=== PATIENT | male | born 1970 | race Caucasian/White ===

== ENCOUNTER → 2020-08-14 08:59 | Outpatient (BNVA) | payer MEDICARE, MEDICAID, SELFPAY | PROVIDERS: Family Provider Counselor Professional; PCP Nurse Practitioner Family; Referring Provider Internal Medicine Pulmonary Disease; Visit Provider Internal Medicine Pulmonary Disease | DX: Z11.59 Encounter for screening for other viral diseases (principal); R06.02 Shortness of breath | CPT/HCPCS: 87635 ==

== ENCOUNTER 2020-08-18 11:55 | Outpatient (CLI) | payer MEDICARE, MEDICAID, SELFPAY ==
--- NOTE | 2020-08-18 12:45 | PFTS_ITS ---
Date of Study:08/18/20 Date of Dictation: 08/19/2020 MECHANICS: Forced vital capacity (FVC) is normal. Forced expiratory volume in one second (FEV1) is . Normal FEV1/FVC is normal. Significant response to bronchodilator FLOW VOLUME LOOP: Normal . LUNG VOLUMES: Total lung capacity (TLC) is reduced. Residual volume (RV) is normal. DIFFUSING CAPACITY FOR CARBON MONOXIDE: Mildly reduced . INTERPRETATION: Reduced prebronchodilator FVC and the FEV1 normalized after bronchodilator. Reduced TLC with mild gas transfer defect. Overall pulmonary function tests seem to be consistent with mixed pattern of restrictive lung disease and some obstruction of airways as evidenced by significant response to bronchodilators. Please correlate clinically MTDD
== END 2020-08-18 11:56 | disposition home or self-care (01) ==
LOC: RT 11:57
PROVIDERS: PCP Nurse Practitioner Family; Visit Provider Internal Medicine Pulmonary Disease
DX: J45.909 Unspecified asthma, uncomplicated (principal)
CPT/HCPCS: 94060; 94726; 94729; J7611

== ENCOUNTER → 2020-11-03 15:43 | Outpatient (BNVA) | payer MEDICARE, MEDICAID, SELFPAY | PROVIDERS: PCP Nurse Practitioner Family; Visit Provider Internal Medicine Pulmonary Disease | DX: R06.02 Shortness of breath (principal); J45.20 Mild intermittent asthma, uncomplicated; E66.01 Morbid (severe) obesity due to excess calories; Z68.43 Body mass index [BMI] 50.0-59.9, adult; I50.9 Heart failure, unspecified | CPT/HCPCS: 82785; 85025; 86003 ==

== ENCOUNTER → 2021-11-10 10:31 | Outpatient (BNVA) | payer MEDICARE, MEDICAID, SELFPAY | PROVIDERS: PCP Nurse Practitioner Family; Visit Provider Psychiatry & Neurology Psychiatry | DX: Z79.899 Other long term (current) drug therapy (principal); Z03.89 Encounter for observation for other suspected diseases and conditions ruled out; F32.9 Major depressive disorder, single episode, unspecified | CPT/HCPCS: 80053; 80061; 83036; 84443 ==

== ENCOUNTER → 2021-12-20 12:55 | Outpatient (BNVA) | payer MEDICARE, MEDICAID, SELFPAY | PROVIDERS: PCP Nurse Practitioner Family; Visit Provider Internal Medicine Pulmonary Disease | DX: J45.909 Unspecified asthma, uncomplicated (principal); I10 Essential (primary) hypertension; E66.01 Morbid (severe) obesity due to excess calories; I50.9 Heart failure, unspecified; R06.02 Shortness of breath; Z68.43 Body mass index [BMI] 50.0-59.9, adult | CPT/HCPCS: 99214 ==

== ENCOUNTER 2022-03-09 10:42 | Emergency (ER) | payer MEDICARE, MEDICAID, SELFPAY ==
[2022-03-02 14:14] VITALS: BP 126/71; BMI 52.2
[2022-03-09 11:02] VITALS: BP 136/80; PULSE 79; RESP 18; TEMP 36.6; O2SAT 96; BMI 49.8
[2022-03-09 11:50] VITALS: BP 114/72; PULSE 66; RESP 18; O2SAT 96
--- NOTE | 2022-03-09 12:21 | W.ED.GENADLT ---
HPI - General Adult General: Chief complaint: General Medical Stated complaint: bp issues Time Seen by Provider: 03/09/22 11:52 Source: patient Mode of arrival: EMS Limitations: no limitations History of Present Illness: Patient is a 51-year-old male who presents to the ED today with complaints of abnormal blood pressure readings. Patient states he does have a history of hypertension that he treats with lisinopril. He states he woke up this morning and his blood pressure was 90s/70s. He states shortly after this he took it again and it was 110/40s. Patient does not have any chest pain, shortness of breath, difficulty breathing. He does not feel lightheaded or dizzy. No syncopal episodes. Patient states he does have a headache. He has a history of headaches. No recent injury or trauma. Onset (ago): hour(s) Associated symptoms: Reports headache(s); Deny chest pain, dyspnea, malaise, nausea, rash or vomiting Treatments prior to arrival: none Review of Systems Const: Denies: fever(s), chills, body aches, fatigue or malaise Eyes: Denies: change in vision or blurry vision Card: Denies: chest pain Resp: Denies: dyspnea GI: Denies: abdominal pain, nausea or vomiting Musc: Denies: neck pain, back pain, extremity pain or joint pain Skin/Breast: Denies: rash Neuro: Reports: headache(s); Denies: numbness in extremities, weakness in extremities, sensory changes or dizziness FORMERLY [facility], [facility]–1983 ED PFSH: Medical History (Updated 03/09/22 @ 13:46 by LOCO Felipe) CHF (congestive heart failure) Essential hypertension GERD (gastroesophageal reflux disease) Intellectual delay MDD (major depressive disorder) FABIEN (obstructive sleep apnea) Psychiatric care Family History Other Cancer Hypertension Social History (Updated 02/16/22 @ 14:41 by Arlet Ivory RN) Smoking and tobacco status: former smoker Quit status (tobacco): has quit using tobacco Year quit tobacco: 2021 Former quit date comment: about a month ago Second hand smoke exposure: Yes Smoking risk assessment/counseling performed?: No Alcohol intake: current Alcohol intake frequency: holidays/special occasions only Desire information about alcohol rehabilitation?: No Counseling given: No Desire information about substance/drug rehabilitation?: No Counseling given: No Adopted: No Caregiver/support person: Yes (every Monday to set up meds and 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) Lives independently: Yes Household members: none Housing: Apartment Marital status: Single Number of children: 0 Number of grandchildren: 0 Highest education level completed: Some College, No Degree service: No Current occupational status: disabled Pets and animals: Yes (rod mora) Pets & animals: cat(s) History of recent travel: No Leisure activites: music, games and other Leisure activities details: loves to cook Sexually active: No Current gender identity: Male Alexandrea/Protestant: Roman Catholic Special alexandrea needs: No Agree to transfusion: Yes Financial difficulty paying for basics: Not Very Hard Physical Exam Const: COMMON NORMALS: no acute distress, patient oriented x3, no limitations (patient does have baseline cognitive delay) and alert GENERAL APPEARANCE: cooperative NUTRITIONAL APPEARANCE: obese ORIENTATION/CONSCIOUSNESS: Yes awake, Yes oriented to person, Yes oriented to place and Yes oriented to time HENMT: COMMON NORMALS: normocephalic and atraumatic HEAD & SCALP: normal to inspection, normocephalic and atraumatic Neck/C-Spine: COMMON NORMALS: full ROM, no lymphadenopathy, supple and no meningeal signs Resp: COMMON NORMALS: normal respiratory effort and clear to auscultation bilaterally AUSCULTATION: clear to auscultation bilaterally Cardio: COMMON NORMALS: regular rate and regular rhythm RATE: regular rate RHYTHM: regular rhythm GI: COMMON NORMALS: Normal to inspection, nondistended, normoactive bowel sounds present, Soft to palpation, non-tender, No hepatosplenomegaly present and no masses PALPATION: Yes Soft to palpation and Yes No hepatosplenomegaly present Back/Pelvis: COMMON NORMALS: thoracic and lumbar spine normal to inspection, no thoracic nor lumbar tenderness and thoraco-lumbar ROM normal Extremity: COMMON NORMALS: normal to inspection, capillary refill normal, no joint enlargement, no clubbing, cyanosis or edema, no calf tenderness and no pedal edema GENERAL: Yes normal exam except as noted Neuro: DOYLE COMA SCALE: document GCS findings [place] coma scale eye opening: Spontaneous [place] coma scale verbal response: Orientated Doyle coma scale motor response: Obey commands [place] coma scale total score: 15 COMMON NORMALS: patient oriented x3, CN's II-XII intact bilaterally, moves all extremities, no focal motor deficits, no sensory deficits noted and gait normal SENSORIUM/ORIENTATION: Yes alert, Yes oriented to person, Yes oriented to place and Yes oriented to time MENINGEAL SIGNS: Yes no meningeal signs MOTOR EXAM: 5/5 motor strength present throughout Skin: COMMON NORMALS: no rashes or lesions noted GENERAL SKIN EXAM: no rashes or lesions noted Course Vital Signs: Vital signs: Vital Signs Temperature 97.9 F 03/09/22 11:02 Pulse Rate 70 03/09/22 14:05 Respiratory Rate 18 03/09/22 14:05 Blood Pressure 122/72 03/09/22 14:05 Pulse Oximetry 97 03/09/22 14:05 [facility] - General Adult Medical Decision Making Blood pressure has been 120s/130s?70s/80s while here. Blood work is unremarkable. He has no complaints of chest pain, shortness of breath, difficulty breathing. He was given sumatriptan for his headache and currently rating it at a 1/10. At this point recommend he continue to keep blood pressure log and follow-up with his primary care provider. Lab Data : 03/09/22 12:30 03/09/22 12:30 Laboratory Results WBC 6.0 10^3/uL (4.0-10.0) 03/09/22 12:30 RBC 4.36 10^6/uL (4.1-5.3) 03/09/22 12:30 Hgb 13.3 g/dL (11.7-16.6) 03/09/22 12:30 Hct 39.8 % (42.0-52.0) L 03/09/22 12:30 MCV 91.3 fl (80-94) 03/09/22 12:30 MCH 30.5 pg (28.0-34.0) 03/09/22 12:30 MCHC 33.4 g/dL (30.0-36.0) 03/09/22 12:30 RDW 14.6 % (12.1-15.1) 03/09/22 12:30 Plt Count 197 10^3/cmm (130-400) 03/09/22 12:30 MPV 10.3 fL (7.4-10.4) 03/09/22 12:30 Neut % (Auto) 68.0 % 03/09/22 12:30 Lymph % (Auto) 21.8 % 03/09/22 12:30 Leslie % (Auto) 8.4 % 03/09/22 12:30 Eos % (Auto) 1.0 % 03/09/22 12:30 Baso % (Auto) 0.5 % 03/09/22 12:30 Neut # (Auto) 4.06 10^3/uL (1.8-7.7) 03/09/22 12:30 Lymph # (Auto) 1.3 10^3/uL (0.8-4.8) 03/09/22 12:30 Leslie # (Auto) 0.5 10^3/uL (0.2-0.9) 03/09/22 12: Eos # (Auto) 0.1 10^3/uL (0.0-0.8) 03/09/22 12: Baso # (Auto) 0.0 10^3/uL (0.0-0.1) 03/09/22 12: Nucleated RBC % (auto) 0 % 03/09/22 12: Nucleated RBCs # 0.0 /100WBC 03/09/22 12:30 Sodium 138 mmol/L (136-145) 03/09/22 12:30 Potassium 3.7 mmol/L (3.5-5.1) 03/09/22 12:30 Chloride 103 mmol/L (98-107) 03/09/22 12:30 Carbon Dioxide 27 mmol/L (22-29) 03/09/22 12:30 Anion Gap 11.7 (5-19) 03/09/22 12:30 BUN 15 mg/dL (6-20) 03/09/22 12:30 Creatinine 1.0 mg/dL (0.7-1.2) 03/09/22 12:30 GFR Calculation 78.8 mL/min (90-130) L 03/09/22 12:30 Glucose 96 mg/dL (65-115) 03/09/22 12:30 Calculated Osmolality 287 mOsm/kg (285-295) 03/09/22 12:30 Calcium 9.0 mg/dL (8.5-10.5) 03/09/22 12:30 Total Bilirubin 0.4 mg/dL (0.15-1.2) 03/09/22 12:30 AST 20 U/L (0-40) 03/09/22 12:30 ALT 22 U/L (0-41) 03/09/22 12:30 Alkaline Phosphatase 180 IU/L (40-130) H 03/09/22 12:30 Total Protein 6.9 g/dL (6.6-8.7) 03/09/22 12:30 Albumin 3.9 g/dL (3.5-5.2) 03/09/22 12:30 Globulin 3.0 g/dL (1.3-4.6) 03/09/22 12:30 Urine Color Yellow (Yellow) 03/09/22 12:50 Urine Appearance Clear (CLEAR) 03/09/22 12:50 Urine pH 5 (5-7) 03/09/22 12:50 Ur Specific [place] 1.015 (1.005-1.030) 03/09/22 12:50 Urine Protein Neg (Negative) 03/09/22 12:50 Urine Glucose (UA) Norm (Normal) 03/09/22 12:50 Urine Ketones Negative (Negative) 03/09/22 12:50 Urine Blood Neg (Negative) 03/09/22 12:50 Urine Nitrate Negative (Negative) 03/09/22 12:50 Urine Bilirubin Neg (Negative) 03/09/22 12:50 Urine Urobilinogen Norm mg/dL (Negative) 03/09/22 12:50 Ur Leukocyte Esterase Negative (Negative) 03/09/22 12:50 Discharge Plan Discharge Patient Disposition: Home Clinical Impression: Headache, Blood pressure check Condition: Stable Prescriptions: No Action tamsulosin 0.4 mg capsule 0.4 mg PO DAILY 0RF sucralfate [Carafate] 1 gram tablet 1 gm PO TID 0RF lisinopril 10 mg tablet 10 mg PO DAILY 0RF zonisamide [Zonegran] 100 mg capsule 300 mg PO .hs 0RF esomeprazole magnesium 40 mg capsule,delayed release(DR/EC) 40 mg PO DAILY 0RF loratadine [Allergy Relief (loratadine)] 10 mg tablet 10 mg PO DAILY 0RF atorvastatin 40 mg tablet 40 mg PO DAILY 0RF aripiprazole 30 mg tablet 30 mg PO .qhs 30 Days Qty: 30 3RF fluoxetine 40 mg capsule 80 mg PO DAILY 30 Days Qty: 60 3RF montelukast [Singulair] 10 mg tablet 10 mg PO DAILY Qty: 30 3RF albuterol sulfate [ProAir HFA] 90 mcg/actuation HFA aerosol inhaler 2 puff inhalation Q6H PRN0RF budesonide-formoterol [Symbicort] 80-4.5 mcg/actuation HFA aerosol inhaler 2 puff inhalation BID Qty: 10.2 3RF isosorbide mononitrate 30 mg tablet extended release 24 hr 15 mg PO BID Qty: 90 3RF potassium chloride 20 mEq tablet extended release 20 meq PO DAILY Qty: 90 3RF furosemide 40 mg tablet 40 mg PO DAILY Qty: 90 3RF Discharge Orders: Discharge ED (Routine); Ordered 03/09/22 Ordered By: Aracely Thorpe Referrals: Thea Escobedo FNP [Primary Care Provider] - Coding Level of Care Code ED Schedule Maker for Chg Fwd Exam Comprehensive
[2022-03-09] MEDS: SUMAtriptan 6 mg/0.5 mL SDV SUBCUT (12:43)
[2022-03-09 12:54] LABS: Basophils % 0.5 %; Eosinophils # 0.1 10^3/uL (0.0-0.8); Hematocrit 39.8 % (42.0-52.0); Hemoglobin 13.3 g/dL (11.7-16.6); Lymphocytes # 1.3 10^3/uL (0.8-4.8); Lymphocytes % 21.8 %; Mean Corpuscular HGB Conc 33.4 g/dL (30.0-36.0); Mean Corpuscular Hemoglobin 30.5 pg (28.0-34.0); Mean Corpuscular Volume 91.3 fl (80-94); Mean Platelet Volume 10.3 fL (7.4-10.4); Monocytes # 0.5 10^3/uL (0.2-0.9); Monocytes % 8.4 %; Neutrophils # 4.06 10^3/uL (1.8-7.7); Nucleated Red Blood Cells % 0 %; Platelet Count 197 10^3/cmm (130-400); Red Blood Count 4.36 10^6/uL (4.1-5.3); Red Cell Distribution Width 14.6 % (12.1-15.1)
[2022-03-09 12:57] VITALS: BP 120/81; PULSE 67; RESP 17; O2SAT 97
[2022-03-09 13:09] LABS: Alanine Aminotransferase 22 U/L (0-41); Albumin Level 3.9 g/dL (3.5-5.2); Alkaline Phosphatase 180 IU/L (40-130); Anion Gap 11.7 (5-19); Aspartate Amino Transferase 20 U/L (0-40); Blood Urea Nitrogen 15 mg/dL (6-20); Carbon Dioxide 27 mmol/L (22-29); Chloride 103 mmol/L (98-107); Glomerular Filtration Rate 78.8 mL/min (90-130); Glucose 96 mg/dL (65-115); Osmolality Calculated 287 mOsm/kg (285-295); Potassium 3.7 mmol/L (3.5-5.1); Sodium 138 mmol/L (136-145); Total Bilirubin 0.4 mg/dL (0.15-1.2); Total Protein 6.9 g/dL (6.6-8.7)
[2022-03-09 13:10] LABS: Add Urine Microscopic? NO; Charge for UA Resulting for Rev
[2022-03-09 13:12] LABS: Bilirubin Urine Neg (Negative); Blood Urine Neg (Negative); Glucose Urine UA Norm (Normal); Ketones Urine Negative (Negative); Leukocyte Esterase Urine Negative (Negative); Nitrate Urine Negative (Negative); Protein Urine Neg (Negative); Specific Gravity, Urine 1.015 (1.005-1.030); Urine Appearance Clear (CLEAR); Urine Color Yellow (Yellow); Urobilinogen Urine Norm (Negative); pH Urine 5 (5-7)
[2022-03-09 14:05] VITALS: BP 122/72; PULSE 70; RESP 18; O2SAT 97
== END 2022-03-09 14:06 | disposition home or self-care (01) ==
PROVIDERS: Emergency Provider Physician Assistant; PCP Nurse Practitioner Family
DX: I11.0 Hypertensive heart disease with heart failure (principal); I50.9 Heart failure, unspecified; R51.9 Headache, unspecified; Z87.891 Personal history of nicotine dependence
CPT/HCPCS: 80053; 81003; 85025; 96372; 99283; J3030

== ENCOUNTER → 2022-05-17 12:12 | Outpatient (BNVA) | payer MEDICARE, MEDICAID, SELFPAY ==
[2022-03-02 14:14] VITALS: BP 126/71; BMI 52.2
== END ==
PROVIDERS: PCP Physician Assistant; Visit Provider Specialist
DX: G47.419 Narcolepsy without cataplexy (principal); Z87.891 Personal history of nicotine dependence
CPT/HCPCS: 99204

== ENCOUNTER → 2022-06-23 10:43 | Outpatient (BNVA) | payer MEDICARE, MEDICAID, SELFPAY ==
[2022-03-02 14:14] VITALS: BP 126/71; BMI 52.2
== END ==
PROVIDERS: PCP Physician Assistant; Visit Provider Internal Medicine Pulmonary Disease
DX: I11.0 Hypertensive heart disease with heart failure (principal); I50.9 Heart failure, unspecified; E66.01 Morbid (severe) obesity due to excess calories; Z68.43 Body mass index [BMI] 50.0-59.9, adult; Z87.891 Personal history of nicotine dependence; K21.9 Gastro-esophageal reflux disease without esophagitis
CPT/HCPCS: 99214

== ENCOUNTER → 2023-01-11 12:04 | Outpatient (BNVA) | payer MEDICARE, MEDICAID, SELFPAY ==
[2022-03-02 14:14] VITALS: BP 126/71; BMI 52.2
== END ==
PROVIDERS: PCP Physician Assistant; Visit Provider Registered Nurse
DX: F32.9 Major depressive disorder, single episode, unspecified (principal); Z79.899 Other long term (current) drug therapy
CPT/HCPCS: 80053; 80061; 83036; 85025

== ENCOUNTER 2023-02-27 11:11 | Outpatient (CLI) | payer MEDICARE, MEDICAID, SELFPAY ==
[2022-03-02 14:14] VITALS: BP 126/71; BMI 52.2
--- NOTE | 2023-02-27 11:25 | XRR_ITS ---
PROCEDURE INFORMATION: Exam: XR Left Knee Exam date and time: 02/27/2023 11:40 AM Age: 52 years old Clinical indication: Pain; Knee; Left; Additional info: Left knee pain TECHNIQUE: Imaging protocol: Radiologic exam of the left knee. Views: 3 views. COMPARISON: No relevant prior studies available. FINDINGS: Bones/joints: Severe tricompartmental osteoarthritis of the knee, greatest in the medial compartment. Distal femoral metaphyseal 3.4 cm sclerotic bony lesion suggestive of a benign enchondroma. Soft tissues: Normal. XR/XR knee LT 3V* [id number] IMPRESSION: 1. Severe tricompartmental osteoarthritis of the knee, greatest in the medial compartment. 2. Distal femoral metaphyseal 3.4 cm sclerotic bony lesion suggestive of a benign enchondroma.
== END 2023-02-27 11:12 | disposition home or self-care (01) ==
PROVIDERS: PCP Physician Assistant; Visit Provider Family Medicine
DX: I11.0 Hypertensive heart disease with heart failure (principal); I50.9 Heart failure, unspecified; Z87.891 Personal history of nicotine dependence
CPT/HCPCS: 36415; 73562; 80048; 83880; 99214

== ENCOUNTER → 2023-03-27 09:49 | Outpatient (BNVA) | payer MEDICARE, MEDICAID, SELFPAY ==
[2022-03-02 14:14] VITALS: BP 126/71; BMI 52.2
== END ==
PROVIDERS: PCP Physician Assistant; Referring Provider Family Medicine; Visit Provider Student in an Organized Health Care Education/Training Program
DX: M17.12 Unilateral primary osteoarthritis, left knee (principal)
CPT/HCPCS: 20610; 73560; 73565; 99203; J3301

== ENCOUNTER → 2023-04-24 10:14 | Outpatient (BNVA) | payer MEDICARE, MEDICAID, SELFPAY ==
[2022-03-02 14:14] VITALS: BP 126/71; BMI 52.2
== END ==
PROVIDERS: PCP Family Medicine; Visit Provider Internal Medicine Pulmonary Disease
DX: J45.909 Unspecified asthma, uncomplicated (principal); I50.9 Heart failure, unspecified; E66.01 Morbid (severe) obesity due to excess calories; Z68.43 Body mass index [BMI] 50.0-59.9, adult; Z87.891 Personal history of nicotine dependence; K21.9 Gastro-esophageal reflux disease without esophagitis
CPT/HCPCS: 99214

== ENCOUNTER → 2023-05-15 10:24 | Outpatient (BNVA) | payer MEDICARE, MEDICAID, SELFPAY ==
[2022-03-02 14:14] VITALS: BP 126/71; BMI 52.2
== END ==
PROVIDERS: PCP Family Medicine; Visit Provider Specialist
DX: R29.90 Unspecified symptoms and signs involving the nervous system (principal); G47.419 Narcolepsy without cataplexy
CPT/HCPCS: G0463

== ENCOUNTER 2023-09-03 13:46 | Emergency (ER) | payer MEDICARE, MEDICAID, SELFPAY ==
[2022-03-02 14:14] VITALS: BP 126/71; BMI 52.2
[2023-09-03 13:51] VITALS: BP 158/81; PULSE 73; RESP 22; TEMP 36.4; O2SAT 100; BMI 52.9
--- NOTE | 2023-09-03 14:17 | XRR_ITS ---
PROCEDURE INFORMATION: Exam: XR Left Knee Exam date and time: 09/03/2023 4:05 PM Age: 53 years old Clinical indication: Left; Patient HX: Lt knee pain; No known injury TECHNIQUE: Imaging protocol: Radiologic exam of the left knee. Views: 3 views. COMPARISON: CR XR knee LT 3V* [id number] 02/27/2023 11:40 AM FINDINGS: Bones/joints: Osseous structures are intact. No acute fracture. Moderate DJD centered in the medial and patellofemoral compartments. Soft tissues: Normal. XR/XR knee LT 3V* [id number] IMPRESSION: No acute findings. Moderate DJD centered at the medial and patellofemoral compartments.
--- NOTE | 2023-09-03 15:44 | W.ED.FALL ---
HPI - Fall General: Chief Complaint: Fall Stated Complaint: BACK PAIN S/P FALL Time Seen by Provider: 09/03/23 15:25 History of Present Illness: 53-year-old male patient comes in today with complaints of right flank pain and low back pain and left knee pain after falling when getting out of the [employer] bus. Patient reports he slipped and fell striking his right flank against the side of the bus. Patient has been able to ambulate in his own accord. Patient has anterior tenderness to the knee. Patient appears chronically ill due to morbid obesity and chronic lung disease. Patient endorses CHF, COPD, mental health disorder, GERD, hypertension, BPH, hypercholesteremia, incontinence. Associated symptoms-after fall: Denies chest pain Review of Systems General: Reports: 10 or more systems reviewed and unremarkable except in HPI and below ENMT: Denies: throat pain Card: Denies: chest pain Resp: Reports: dyspnea (Chronic) GI: Denies: nausea, vomiting, diarrhea or constipation : Reports: flank pain; Denies: difficulty urinating Musc: Reports: back pain and joint pain (Left knee) Skin/Breast: Denies: rash PFSH ED PFSH: Medical History CHF (congestive heart failure) Essential hypertension GERD (gastroesophageal reflux disease) Intellectual delay MDD (major depressive disorder) FABIEN (obstructive sleep apnea) Psychiatric care Family History Other Cancer Hypertension Social History Smoking and tobacco/nicotine status: former use of tobacco/nicotine Quit status (tobacco/nicotine): has quit using Year quit tobacco: 2021 Former quit date comment: about a month ago Second hand smoke exposure: Yes Alcohol intake: current Alcohol intake frequency: holidays/special occasions only Substance/Drug Use: former Adopted: No Caregiver/support person: Yes (every Monday to set up meds and 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) Lives independently: Yes Household members: none Housing: Apartment Marital status: Single Number of children: 0 Number of grandchildren: 0 Highest education level completed: Some College, No Degree service: No Current occupational status: disabled Pets and animals: Yes (deborahjose mora) Pets & animals: cat(s) Leisure activites: music, games and other Leisure activities details: loves to cook Sexually active: No Do you think of yourself as: Straight/Heterosexual Current gender identity: Male Alexandrea/Jehovah'S Witness: [employer] Special alxeandrea needs: No Agree to transfusion: Yes Physical Exam Const: COMMON NORMALS: alert HENMT: COMMON NORMALS: normocephalic HEAD & SCALP: normocephalic MOUTH: Normal oral and palatal mucosa present Neck/C-Spine: COMMON NORMALS: full ROM Resp: COMMON NORMALS: normal respiratory effort AUSCULTATION: wheezes and diminished lung sounds Cardio: COMMON NORMALS: regular rate and regular rhythm RATE: regular rate RHYTHM: regular rhythm GI: COMMON NORMALS: Soft to palpation AUSCULTATION: Yes normoactive bowel sounds PALPATION: Yes Soft to palpation Back/Pelvis: THORACIC SPINE/UPPER BACK: No thoracic spinal tenderness LUMBAR SPINE/LOWER BACK: Yes lumbar spinal tenderness Lumbar spinal tenderness location: L4 and L5 Extremity: LEFT LOWER EXTREMITY: Yes knee joint (Anterior tenderness) Left knee: Yes inspection, Yes ROM and Yes neurovascular exam Neuro: SENSORIUM/ORIENTATION: Yes alert Skin: COMMON NORMALS: turgor normal GENERAL SKIN EXAM: turgor normal Course Vital Signs: Vital signs: Vital Signs Temperature 97.5 F L 09/03/23 13:51 Pulse Rate 75 09/03/23 17:04 Respiratory Rate 18 09/03/23 17:04 Blood Pressure 147/86 09/03/23 17:04 Pulse Oximetry 97 09/03/23 17:04 Oxygen Delivery Me thod Room Air 09/03/23 13:51 MDM - Fall Medical Decision Making 53-year-old male patient comes in today for complaints of injury sustained during a fall. Patient reports he struck his right flank area against the bus and also injured his knee. On exam patient has tenderness in the right flank, low lumbar sacral area tenderness, and anterior left knee tenderness. Patient was able to ambulate and transfer without any assistance. Differential diagnosis includes contusion, organ injury, fracture, muscle strain. CBC and CMP were unremarkable. CT of the abdomen pelvis noted a contusion to the right lower abdomen wall. No other signs of acute or significant injury was noted. X-ray of the left knee was without fracture. Reviewed exam with patient with recommendations for treatment and follow-up. Patient reported understanding and agreed to plan. Lab Data 09/03/23 16:15 09/03/23 16:15 Radiology Impressions Knee X-Ray 09/03/23 14:17 IMPRESSION: No acute findings. Moderate DJD centered at the medial and patellofemoral compartments. Abdomen/Pelvis CT 09/03/23 15:51 IMPRESSION: 1. There is edema and/or hematoma in the subcutaneous soft tissues of the right lower abdomen and pelvis. 2. Normal variant interposition of the colon anterior to the liver. This can be associated with abdominal pain. Laboratory Results WBC 7.46 10^3/uL (3.29-11.43) 09/03/23 16:15 RBC 4.43 10^6/uL (3.85-5.65) 09/03/23 16:15 Hgb 13.70 g/dL (11.27-16.99) 09/03/23 16:15 Hct 43.0 % (37-53) 09/03/23 16:15 MCV 97.1 fl (82-101) 09/03/23 16:15 MCH 30.9 pg (27-33) 09/03/23 16:15 MCHC 31.9 g/dL (30-55) 09/03/23 16:15 RDW 13.9 % (12.1-15.1) 09/03/23 16:15 Plt Count 198 10^3/cmm (157-399) 09/03/23 16:15 MPV 9.8 fL (7.4-10.4) 09/03/23 16:15 Neut % (Auto) 73.1 % 09/03/23 16:15 Lymph % (Auto) 18.6 % 09/03/23 16:15 [place] % (Auto) 7.1 % 09/03/23 16:15 Eos % (Auto) 0.4 % 09/03/23 16:15 Baso % (Auto) 0.4 % 09/03/23 16:15 Neut # (Auto) 5.45 10^3/uL (1.8-7.7) 09/03/23 16:15 Lymph # (Auto) 1.4 10^3/uL (0.8-4.8) 09/03/23 16:15 [place] # (Auto) 0.5 10^3/uL (0.2-0.9) 09/03/23 16:15 Eos # (Auto) 0.0 10^3/uL (0.0-0.8) 09/03/23 16:15 Baso # (Auto) 0.0 10^3/uL (0.0-0.1) 09/03/23 16:15 Nucleated RBC % (auto) 0 % 09/03/23 16:15 Nucleated RBCs # 0.0 /100WBC 09/03/23 16:15 Sodium 137 mmol/L (136-145) 09/03/23 16:15 Potassium 4.2 mmol/L (3.5-5.1) 09/03/23 16:15 Chloride 101 mmol/L (98-107) 09/03/23 16:15 Carbon Dioxide 26 mmol/L (22-29) 09/03/23 16:15 Anion Gap 14.2 (5-19) 09/03/23 16:15 BUN 25 mg/dL (6-20) H 09/03/23 16:15 Creatinine 1.1 mg/dL (0.7-1.2) 09/03/23 16:15 GFR Calculation 70.0 mL/min (90-130) L 09/03/23 16:15 Glucose 111 mg/dL (65-115) 09/03/23 16:15 Calculated Osmolality 289 mOsm/kg (285-295) 09/03/23 16:15 Calcium 9.3 mg/dL (8.5-10.5) 09/03/23 16:15 Total Bilirubin 0.3 mg/dL (0.15-1.2) 09/03/23 16:15 AST 27 U/L (0-40) 09/03/23 16:15 ALT 23 U/L (0-41) 09/03/23 16:15 Alkaline Phosphatase 173 U/L (40-130) H 09/03/23 16:15 Total Protein 7.5 g/dL (6.6-8.7) 09/03/23 16:15 Albumin 4.0 g/dL (3.5-5.2) 09/03/23 16:15 Globulin 3.5 g/dL (1.3-4.6) 09/03/23 16:15 All radiology interpretation(s) finalized by discharge Discharge Plan Discharge Patient Disposition: Home Clinical Impression: Fall from slipping Qualifiers: Encounter type: initial encounter Qualified Code(s): W01.0XXA - Fall on same level from slipping, tripping and stumbling without subsequent striking against object, initial encounter Contusion Qualifiers: Encounter type: initial encounter Contusion area: lower back Qualified Code(s): S30.0XXA - Contusion of lower back and pelvis, initial encounter Acute knee pain Qualifiers: Laterality: left Qualified Code(s): M25.562 - Pain in left knee Condition: Stable Prescriptions: No Action tamsulosin 0.4 mg capsule 0.4 mg PO DAILY lisinopril 10 mg tablet 10 mg PO DAILY esomeprazole magnesium 40 mg capsule,delayed release(DR/EC) 40 mg PO DAILY loratadine [Allergy Relief (loratadine)] 10 mg tablet 10 mg PO DAILY atorvastatin 40 mg tablet 40 mg PO DAILY montelukast [Singulair] 10 mg tablet 10 mg PO DAILY Qty: 30 3RF albuterol sulfate [ProAir HFA] 90 mcg/actuation HFA aerosol inhaler 2 puff inhalation Q6H PRN (Reason: Shortness Of Breath) cyclobenzaprine 7.5 mg tablet 7.5 mg PO TID PRN (Reason: muscle spasm) ibuprofen 400 mg tablet 400 mg PO TID PRN (Reason: fever or pain) fluoxetine 40 mg capsule See Rx Instructions .ROUTE .COMPLEX Qty: 60 8RF Dose Instruction: TAKE 2 CAPSULES BY MOUTH EVERY DAY Rx Instructions: TAKE 2 CAPSULES BY MOUTH EVERY DAY furosemide 40 mg tablet 40 mg PO DAILY Qty: 90 3RF spironolactone 25 mg tablet 12.5 mg PO DAILY Qty: 90 1RF budesonide-formoterol [Symbicort] 80-4.5 mcg/actuation HFA aerosol inhaler 2 puff inhalation BID Qty: 10.2 3RF isosorbide mononitrate 30 mg tablet extended release 24 hr 15 mg PO BID Qty: 90 3RF potassium chloride 20 mEq tablet extended release 20 meq PO DAILY Qty: 90 3RF aripiprazole 30 mg tablet See Rx Instructions .ROUTE .COMPLEX Qty: 30 12RF Dose Instruction: TAKE 1 TABLET BY MOUTH EVERY DAY AT BEDTIME Rx Instructions: TAKE 1 TABLET BY MOUTH EVERY DAY AT BEDTIME meloxicam 15 mg tablet See Rx Instructions .ROUTE .COMPLEX Qty: 30 1RF Dose Instruction: TAKE ONE TAB BY MOUTH DAILY Rx Instructions: TAKE ONE TAB BY MOUTH DAILY modafinil [Provigil] 200 mg tablet 200 mg PO QAM Qty: 90 3RF zonisamide 100 mg capsule See Rx Instructions .ROUTE .COMPLEX Qty: 90 11RF Dose Instruction: TAKE 3 CAPSULES BY MOUTH EVERY NIGHT AT BEDTIME Rx Instructions: TAKE 3 CAPSULES BY MOUTH EVERY NIGHT AT BEDTIME Discharge Orders: Discharge ED (Routine); Ordered 09/03/23 Ordered By: Bayron Sanchez Referrals: Francesco Grady MD [Primary Care Provider] - Discharge Diet: Usual diet Discharge Activity: Increase activity as tolerated Patient Instructions: Musculoskeletal Pain (ED) Activity Restrictions/Additional Instructions: Activity as tolerated. Use acetaminophen or ibuprofen as needed for pain and discomfort. Use ice or heat for further pain relief. Follow-up with primary care for further instructions. Return to ED for new concerns. 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
--- NOTE | 2023-09-03 15:51 | CTR_ITS ---
PROCEDURE INFORMATION: Exam: CT Abdomen And Pelvis With Contrast Exam date and time: 09/03/2023 4:53 PM Age: 53 years old Clinical indication: Injury or trauma; Fall; Blunt; Generalized; Additional info: Fall injury, low back pain, right flank pain TECHNIQUE: Imaging protocol: Computed tomography of the abdomen and pelvis with contrast. Radiation optimization: All CT scans at this facility use at least one of these dose optimization techniques: automated exposure control; mA and/or kV adjustment per patient size (includes targeted exams where dose is matched to clinical indication); or iterative reconstruction. Contrast material: OMNI 350; Contrast volume: 100 ml; Contrast route: INTRAVENOUS (IV); REPORTING DATA: Count of CT and Cardiac NM exams in prior 12 months: This patient has received 0 known CTs and 0 known cardiac nuclear medicine studies in the 12 months prior to the current study. COMPARISON: No relevant prior studies available. RADIATION DOSE METRICS: Total DLP (mGy-cm): 2158.53 FINDINGS: Diaphragm: There is mild elevation the right hemidiaphragm. Liver: Normal. No mass. Gallbladder and bile ducts: Normal. No calcified stones. No ductal dilation. Pancreas: Normal. No ductal dilation. Spleen: Normal. No splenomegaly. Adrenal glands: Normal. No mass. Kidneys and ureters: Normal. No hydronephrosis. Stomach and bowel: Normal variant interposition of the colon anterior to the liver. This can be associated with abdominal pain. Appendix: A normal appendix is identified. Intraperitoneal space: See Stomach and bowel finding. Vasculature: Unremarkable. No abdominal aortic aneurysm. Lymph nodes: Unremarkable. No enlarged lymph nodes. Urinary bladder: Unremarkable as visualized. Reproductive: Unremarkable as visualized. Bones/joints: There are degenerative changes in the visualized spine. Soft tissues: There is edema and/or hematoma in the subcutaneous soft tissues of the right lower abdomen and pelvis. CT/CT abdomen pelvis w con* [id number] IMPRESSION: 1. There is edema and/or hematoma in the subcutaneous soft tissues of the right lower abdomen and pelvis. 2. Normal variant interposition of the colon anterior to the liver. This can be associated with abdominal pain.
[2023-09-03 16:34] LABS: Basophils % 0.4 %; Eosinophils % 0.4 %; Lymphocytes # 1.4 10^3/uL (0.8-4.8); Lymphocytes % 18.6 %; Mean Corpuscular HGB Conc 31.9 g/dL (30-55); Mean Corpuscular Hemoglobin 30.9 pg (27-33); Mean Corpuscular Volume 97.1 fl (82-101); Mean Platelet Volume 9.8 fL (7.4-10.4); Monocytes # 0.5 10^3/uL (0.2-0.9); Monocytes % 7.1 %; Neutrophils # 5.45 10^3/uL (1.8-7.7); Neutrophils % 73.1 %; Nucleated Red Blood Cells % 0 %; Platelet Count 198 10^3/cmm (157-399); Red Blood Count 4.43 10^6/uL (3.85-5.65); Red Cell Distribution Width 13.9 % (12.1-15.1); White Blood Count 7.46 10^3/uL (3.29-11.43)
[2023-09-03 17:04] VITALS: BP 147/86; PULSE 75; RESP 18; O2SAT 97
[2023-09-03] MEDS: iohexol 350 mg/mL 500 mL Btl (per mL) IV (17:05)
[2023-09-03 17:08] LABS: Alanine Aminotransferase 23 U/L (0-41); Alkaline Phosphatase 173 U/L (40-130); Anion Gap 14.2 (5-19); Aspartate Amino Transferase 27 U/L (0-40); Blood Urea Nitrogen 25 mg/dL (6-20); Carbon Dioxide 26 mmol/L (22-29); Chloride 101 mmol/L (98-107); Globulin 3.5 g/dL (1.3-4.6); Glucose 111 mg/dL (65-115); Osmolality Calculated 289 mOsm/kg (285-295); Potassium 4.2 mmol/L (3.5-5.1); Sodium 137 mmol/L (136-145); Total Bilirubin 0.3 mg/dL (0.15-1.2); Total Protein 7.5 g/dL (6.6-8.7)
[2023-09-03] MEDS: HYDROcodone-acetaminophen 7.5-325 mg Tablet 1 TAB PO (17:16)
[2023-09-03 17:30] LABS: Calcium 9.3 mg/dL (8.5-10.5)
== END 2023-09-03 18:04 | disposition home or self-care (01) ==
PROVIDERS: Emergency Provider Nurse Practitioner Family; PCP Family Medicine
DX: S30.0XXA Contusion of lower back and pelvis, initial encounter (principal); M25.562 Pain in left knee; Z87.891 Personal history of nicotine dependence; I11.0 Hypertensive heart disease with heart failure; I50.9 Heart failure, unspecified; W01.198A Fall on same level from slipping, tripping and stumbling with subsequent striking against other object, initial encounter
CPT/HCPCS: 73562; 74177; 80053; 85025; 99285; Q9967

== ENCOUNTER → 2023-10-13 09:55 | Outpatient (BNVA) | payer MEDICARE, MEDICAID, SELFPAY ==
[2022-03-02 14:14] VITALS: BP 126/71; BMI 52.2
== END ==
PROVIDERS: PCP Family Medicine; Visit Provider Physician Assistant
DX: M17.12 Unilateral primary osteoarthritis, left knee (principal)
CPT/HCPCS: 20610; 99213; J3301

== ENCOUNTER → 2023-10-25 07:48 | Outpatient (BNVA) | payer MEDICARE, MEDICAID, SELFPAY ==
[2022-03-02 14:14] VITALS: BP 126/71; BMI 52.2
== END ==
PROVIDERS: PCP Family Medicine; Referring Provider Family Medicine; Visit Provider Specialist
DX: G47.419 Narcolepsy without cataplexy (principal)
CPT/HCPCS: 99213

== ENCOUNTER → 2023-12-27 15:08 | Outpatient (BNVA) | payer MEDICARE, MEDICAID, SELFPAY ==
[2022-03-02 14:14] VITALS: BP 126/71; BMI 52.2
== END ==
PROVIDERS: PCP Family Medicine; Referring Provider Nurse Practitioner Family; Visit Provider Internal Medicine
DX: I11.0 Hypertensive heart disease with heart failure (principal); I50.9 Heart failure, unspecified; E66.01 Morbid (severe) obesity due to excess calories; Z68.43 Body mass index [BMI] 50.0-59.9, adult; Z87.891 Personal history of nicotine dependence
CPT/HCPCS: 99214

== ENCOUNTER → 2024-01-12 10:11 | Outpatient (BNVA) | payer MEDICARE, MEDICAID, SELFPAY ==
[2022-03-02 14:14] VITALS: BP 126/71; BMI 52.2
== END ==
PROVIDERS: PCP Family Medicine; Referring Provider Internal Medicine; Visit Provider Internal Medicine
DX: I50.9 Heart failure, unspecified (principal); R06.02 Shortness of breath; I10 Essential (primary) hypertension
CPT/HCPCS: 80048; 83880

== ENCOUNTER → 2024-01-23 08:31 | Outpatient (BNVA) | payer MEDICARE, MEDICAID, SELFPAY ==
[2022-03-02 14:14] VITALS: BP 126/71; BMI 52.2
== END ==
PROVIDERS: PCP Family Medicine; Visit Provider Physician Assistant
DX: M17.12 Unilateral primary osteoarthritis, left knee (principal)
CPT/HCPCS: 20610; 99213; J7318

== ENCOUNTER → 2024-02-22 07:43 | Outpatient (BNVA) | payer MEDICARE, MEDICAID, SELFPAY ==
[2022-03-02 14:14] VITALS: BP 126/71; BMI 52.2
== END ==
PROVIDERS: PCP Family Medicine; Visit Provider Internal Medicine Pulmonary Disease
DX: J45.909 Unspecified asthma, uncomplicated (principal); F32.9 Major depressive disorder, single episode, unspecified; I11.0 Hypertensive heart disease with heart failure; I50.9 Heart failure, unspecified; R06.02 Shortness of breath; E66.01 Morbid (severe) obesity due to excess calories; Z68.43 Body mass index [BMI] 50.0-59.9, adult; G47.33 Obstructive sleep apnea (adult) (pediatric); Z99.89 Dependence on other enabling machines and devices
CPT/HCPCS: 99214

== ENCOUNTER 2024-03-21 14:38 | Inpatient (IN) | payer MEDICARE, MEDICAID, SELFPAY ==
[2022-03-02 14:14] VITALS: BP 126/71; BMI 52.2
--- NOTE | 2024-03-21 14:43 | ECG_ITS ---
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 Measurements Intervals [place] Rate: 68 P: 15 WI: 177 QRS: -7 QRSD: 101 T: 23 QT: 394 QTc: 420 Interpretive Statements SINUS RHYTHM POSSIBLE ANTERIOR MYOCARDIAL INFARCTION , PROBABLY OLD [30 ms Q WAVE IN V3/V4, OR R < 0.2 mV IN V4] No previous ECG available for comparison Electronically Signed On 03-22-2024 20:36:29 CDT by Jing Crockett M.D. [id number]
--- NOTE | 2024-03-21 14:43 | XR_ITS ---
WS: [id number] Exam: XR chest 1V portable [id number] Date/Time of Exam: 03/21/2024 3:06 PM Reason For Exam: Shortness of breath No priors. The lungs are fully expanded. No consolidated infiltrates. There is elevation of the RIGHT diaphragm. There may be bowel interposed beneath the RIGHT diaphragm. Cardiomediastinal silhouette is unremarka ble for technique. No pleural effusions. Bony structures are intact. XR/XR chest 1V portable [id number] IMPRESSION: 1. No acute process. 2. Elevated RIGHT diaphragm.
[2024-03-21 14:48] VITALS: BP 176/78; PULSE 75; RESP 18; TEMP 36.9; O2SAT 96; BMI 54.6
[2024-03-21 14:54] LABS: Basophils % 0.6 %; Eosinophils # 0.2 10^3/uL (0.0-0.8); Eosinophils % 2.9 %; Hematocrit 38.7 % (37-53); Lymphocytes # 1.7 10^3/uL (0.8-4.8); Lymphocytes % 26.2 %; Mean Corpuscular HGB Conc 31.5 g/dL (30-55); Mean Corpuscular Hemoglobin 30.5 pg (27-33); Mean Corpuscular Volume 96.8 fl (82-101); Mean Platelet Volume 9.5 fL (7.4-10.4); Monocytes # 0.7 10^3/uL (0.2-0.9); Monocytes % 10.4 %; Neutrophils # 3.88 10^3/uL (1.8-7.7); Neutrophils % 59.6 %; Nucleated Red Blood Cells % 0 %; Platelet Count 180 10^3/cmm (157-399); Red Cell Distribution Width 13.5 % (12.1-15.1); White Blood Count 6.52 10^3/uL (3.29-11.43)
[2024-03-21 15:15] LABS: Troponin(5th) Baseline 12 ng/L (0-15)
[2024-03-21 15:16] LABS: Lactic Sepsis W/Reflex 1.9 mmol/L (0.5-2.2)
[2024-03-21 15:33] VITALS: BP 143/87; PULSE 78; RESP 18; O2SAT 94
[2024-03-21 15:33] LABS: Alanine Aminotransferase 20 U/L (0-41); Albumin Level 3.7 g/dL (3.5-5.2); Alkaline Phosphatase 172 U/L (40-130); Aspartate Amino Transferase 20 U/L (0-40); Blood Urea Nitrogen 26 mg/dL (6-20); C Reactive Protein 12.1 mg/L (0.0-4.9); Calcium 8.8 mg/dL (8.5-10.5); Carbon Dioxide 23 mmol/L (22-29); Chloride 104 mmol/L (98-107); Creatinine Clr Calc Pharmacy 146.6974; Glucose 90 mg/dL (65-115); NT Pro B Type Natriuretic Pept 124 pg/mL (0-125); Osmolality Calculated 290 mOsm/kg (285-295); Sodium 138 mmol/L (136-145); Total Bilirubin 0.3 mg/dL (0.15-1.2); Total Protein 6.7 g/dL (6.6-8.7)
--- NOTE | 2024-03-21 15:47 | ED_ITS ---
HPI - SOB/Dyspnea 2 General: Chief Complaint: Shortness of Breath/Dyspnea Stated Complaint: sob/cp Time Seen by Provider: 03/21/24 14:40 History of Present Illness: HPI Narrative: 53-year-old man with a history of morbid obesity with a BMI of 55, obstructive sleep apnea, congestive heart failure (he is on sure what the cause of his CHF is, he does not have any history of coronary disease), and hypertension who presents to the emergency room with worsening lower extremity swelling and abdominal swelling. Exertional dyspnea and orthopnea. He had increased his Lasix from 20 mg to 40 mg. This has not helped. No chest pain. No altered mental status. No focal motor deficits. No fevers. No cough. No abdominal pain. No nausea or vomiting Review of Systems 2 Narrative: Constitutional symptoms: Negative except as documented in HPI. Skin symptoms: Negative except as documented in HPI. Eye symptoms: Negative except as documented in HPI. ENMT symptoms: Negative except as documented in HPI. Respiratory symptoms: Negative except as documented in HPI. Cardiovascular symptoms: Negative except as documented in HPI. Gastrointestinal symptoms: Negative except as documented in HPI. Genitourinary symptoms: Negative except as documented in HPI. Musculoskeletal symptoms: Negative except as documented in HPI. Neurologic symptoms: Negative except as documented in HPI. Psychiatric symptoms: Negative except as documented in HPI. Endocrine symptoms: Negative except as documented in HPI. PFSH ED 2 PFSH: Medical History Intellectual delay MDD (major depressive disorder) Psychiatric care Essential hypertension CHF (congestive heart failure) FABIEN (obstructive sleep apnea) GERD (gastroesophageal reflux disease) Family History Other Cancer Hypertension Social History Smoking and tobacco/nicotine status: never used tobacco/nicotine Quit status (tobacco/nicotine): has quit using Year quit tobacco: 2021 Chewing tobacco Former quit date comment: about a month ago Second hand smoke exposure: Yes Alcohol intake: current Alcohol intake frequency: holidays/special occasions only Substance/Drug Use: former Adopted: No Caregiver/support person: Yes (every Monday to set up meds and 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) Lives independently: Yes Household members: none Housing: Apartment Marital status: Single Number of children: 0 Number of grandchildren: 0 Highest education level completed: Some College, No Degree service: No Current occupational status: disabled Pets and animals: Yes (rod mora) Pets & animals: cat(s) Leisure activites: music, games and other Leisure activities details: loves to cook Sexually active: No Do you think of yourself as: Straight/Heterosexual Current gender identity: Male Alexandrea/Sabianism: Pentecostalism Special alexandrea needs: No Agree to transfusion: Yes Physical Exam 2 Narrative: EXAM NARRATIVE: General: Alert, no acute distress. Skin: Warm, dry. Head: Normocephalic, atraumatic. Neck: Supple, trachea midline. Eye: Extraocular movements are intact. Ears, nose, mouth and throat: mucosa moist. Cardiovascular: Regular, Normal peripheral perfusion. Patient has 2-3+ edema of his legs and thighs. His pants are tight around his calves. He says this is not usual for him Respiratory: Lungs are clear to auscultation, respirations are non-labored, breath sounds are equal, Symmetrical chest wall expansion. Gastrointestinal: Soft, Nontender, Non distended Musculoskeletal: Normal ROM, no deformity. Neurological: Alert and oriented, No focal neurological deficit observed. Psychiatric: Cooperative, appropriate mood & affect. Course 2 Vital Signs: Vital signs: Vital Signs Temperature 98.4 F 03/21/24 14:48 Pulse Rate 78 03/21/24 15:33 Respiratory Rate 16 03/21/24 15:33 Blood Pressure 143/87 03/21/24 15:33 Pulse Oximetry 94 03/21/24 15:33 Oxygen Delivery Me thod Room Air 03/21/24 14:48 MDM - SOB/Dyspnea Medical Decision Making Differential diagnosis for patient with shortness of breath includes but is not limited to and based on the above HPI, review of systems and physical exam: Pneumonia. Bronchitis. Asthma or COPD with acute exacerbation. Acute coronary syndrome / VT. Pulmonary embolism. Anxiety. Congestive heart failure. Viral infections including influenza and Covid-19. Atrial fibrillation. Anxiety. Pleural effusion. Pneumothorax. Workup: Lab work, chest X-ray and EKG ordered to evaluate, rule in and rule out above pathologies EKG: Time 1458. Rate 68. Normal sinus rhythm, No ST-T changes, no ectopy, normal [place] & QRS intervals, This was reviewed and interpreted by myself the ER physician at at 1459 Chest x-ray: Cardiomegaly. No acute process. No infiltrate. No pneumothorax. Elevated right hemidiaphragm. This was reviewed and interpreted by myself the emergency room physician. I also reviewed the radiology report. Lab Review: Laboratory results were reviewed and interpreted by myself the emergency room physician. Work is fairly unremarkable other than his BUN is up at 26. No leukocytosis. No anemia. Sodium is normal at 138. Potassium is normal at 4 proBNP is not positive. However in morbidly obese people this is often unreliable. I reviewed the patient's medical record. Consultation: I spoke with Dr. Wells who agrees to admit the patient. Reexamination: Patient remained stable and is not requiring oxygen in the room at this time. No altered mental status. No focal motor deficits. Still with extensive edema. 80 mg of Lasix has been ordered. Assessment and plan: Anasarca Orthopnea Morbid obesity Congestive heart failure ?80 mg IV Lasix in the emergency room. -I discussed the patient with the hospitalist on-call who is admitting the patient. - Discussed findings and plan with patient. Answered any questions. - All laboratory values were reviewed and interpreted personally by myself, the ER physician - All imaging was reviewed and interpreted personally by myself, the ER physician. - Evaluation and treatment of this problem were appropriate in the emergency setting Lab Data 03/21/24 14:46 03/21/24 14:46 Labs/Radiology: Radiology Impressions Chest X-Ray 03/21/24 14:43 IMPRESSION: 1. No acute process. 2. Elevated RIGHT diaphragm. Laboratory Results WBC 6.52 10^3/uL (3.29-11.43) 03/21/24 14:46 RBC 4.00 10^6/uL (3.85-5.65) 03/21/24 14:46 Hgb 12.20 g/dL (11.27-16.99) 03/21/24 14:46 Hct 38.7 % (37-53) 03/21/24 14:46 MCV 96.8 fl (82-101) 03/21/24 14:46 MCH 30.5 pg (27-33) 03/21/24 14:46 MCHC 31.5 g/dL (30-55) 03/21/24 14:46 RDW 13.5 % (12.1-15.1) 03/21/24 14:46 Plt Count 180 10^3/cmm (157-399) 03/21/24 14:46 MPV 9.5 fL (7.4-10.4) 03/21/24 14:46 Neut % (Auto) 59.6 % 03/21/24 14:46 Lymph % (Auto) 26.2 % 03/21/24 14:46 [place] % (Auto) 10.4 % 03/21/24 14:46 Eos % (Auto) 2.9 % 03/21/24 14:46 Baso % (Auto) 0.6 % 03/21/24 14:46 Neut # (Auto) 3.88 10^3/uL (1.8-7.7) 03/21/24 14:46 Lymph # (Auto) 1.7 10^3/uL (0.8-4.8) 03/21/24 14:46 [place] # (Auto) 0.7 10^3/uL (0.2-0.9) 03/21/24 14:46 Eos # (Auto) 0.2 10^3/uL (0.0-0.8) 03/21/24 14:46 Baso # (Auto) 0.0 10^3/uL (0.0-0.1) 03/21/24 14:46 Nucleated RBC % (auto) 0 % 03/21/24 14:46 Nucleated RBCs # 0.0 /100WBC 03/21/24 14:46 Sodium 138 mmol/L (136-145) 03/21/24 14:46 Potassium 4.0 mmol/L (3.5-5.1) 03/21/24 14:46 Chloride 104 mmol/L (98-107) 03/21/24 14:46 Carbon Dioxide 23 mmol/L (22-29) 03/21/24 14:46 Anion Gap 15.0 (5-19) 03/21/24 14:46 BUN 26 mg/dL (6-20) H 03/21/24 14:46 Creatinine 1.1 mg/dL (0.7-1.2) 03/21/24 14:46 GFR Calculation 70.0 mL/min (90-130) L 03/21/24 14:46 Glucose 90 mg/dL (65-115) 03/21/24 14:46 Calculated Osmolality 290 mOsm/kg (285-295) 03/21/24 14:46 Lactic Acid 1.9 mmol/L (0.5-2.2) 03/21/24 14:46 Calcium 8.8 mg/dL (8.5-10.5) 03/21/24 14:46 Total Bilirubin 0.3 mg/dL (0.15-1.2) 03/21/24 14:46 AST 20 U/L (0-40) 03/21/24 14:46 ALT 20 U/L (0-41) 03/21/24 14:46 Alkaline Phosphatase 172 U/L (40-130) H 03/21/24 14:46 Troponin T Baseline 12 ng/L (0-15) 03/21/24 14:46 C-Reactive Protein 12.1 mg/L (0.0-4.9) H 03/21/24 14:46 NT-Pro-B Natriuret Pep 124 pg/mL (0-125) 03/21/24 14:46 Total Protein 6.7 g/dL (6.6-8.7) 03/21/24 14:46 Albumin 3.7 g/dL (3.5-5.2) 03/21/24 14:46 Globulin 3.0 g/dL (1.3-4.6) 03/21/24 14:46 All radiology interpretation(s) finalized by discharge Discharge Plan Discharge Patient Disposition: Admitted As Inpatient Clinical Impression: Anasarca, Orthopnea, Morbid obesity CHF (congestive heart failure) Qualifiers: Heart failure type: unspecified Heart failure chronicity: unspecified Qualified Code(s): I50.9 - Heart failure, unspecified Condition: Stable Coding Level of Care Code ED Scrap Handler for Marcella [place]
[2024-03-21 15:57] LABS: ABG PCO2 40.7 mmHg (35-45); Alveolar-Arterial Oxygen Gradi 3.6 mmHg (5-10); Arterial Blood Gas Hematocrit 38.9 % (42-52); Blood Gas Allen Test Pos; Blood Gas Operator Identificat CAK; Blood Gas Sample Site Radial, left; Blood Gas Sample Type Arterial; Carboxyhemoglobin 0.9 %THgb (0.4-20.1); HCO3 ABG 24.9 mmol/L (22-26); HGB O2 Sat 93.4 % (95-100); Ionized Calcium Level - ABG 1.2 mmol/L (1.1-1.4); Methemoglobin 0.4 % (0.4-1.5); Oxygen Device ROOM AIR; Oxygen Saturation ABG 94.7; PO2 FiO2 Ratio Arterial Blood 338; Potassium Level - ABG 3.9 mmol/L (3.5-5.0); Total Hemoglobin 12.7 g/dL (14-18)
[2024-03-21] MEDS: FUROsemide 10 mg/mL SDV 10mL 80 MG IVP (16:08)
[2024-03-21 16:15] VITALS: PULSE 67; RESP 18; O2SAT 97
--- NOTE | 2024-03-21 16:43 | ECG_ITS ---
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 Measurements Intervals [place] Rate: 61 P: 166 ND: 295 QRS: -11 QRSD: 104 T: 8 QT: 416 QTc: 419 Interpretive Statements Possible sinus rhythm INFERIOR MYOCARDIAL INFARCTION , PROBABLY OLD [40+ ms Q WAVE AND/OR ST/T ABNORMALITY IN II/aVF] Compared to ECG 03/21/2024 14:58:26 Sinus rhythm no longer present Myocardial infarct finding still present Baseline artifact, need to repeat Electronically Signed On 03-22-2024 20:48:14 CDT by Jing Crockett M.D. [id number]
--- NOTE | 2024-03-21 16:47 | P.HP_ITS ---
Providers/Chief Complaint 2 Admitting Physician: Saroj Wells Primary Care Provider: Francesco Grady MD Chief Complaint: sob/cp History of Present Illness 53-year-old gentleman with history of congestive heart failure on diuretic at home, comes in due to progressive worsening lower extremity edema despite increasing diuretic dose, more difficulty with ambulation, dyspnea on exertion. Review of Systems 2 Const: Denies: fever(s), chills, body aches or malaise ENMT: Denies: throat pain Card: Reports: edema, dyspnea on exertion and other (Mild chest tightness.); Denies: chest pain or pre-syncope Resp: Denies: dyspnea, productive cough, change in phlegm color or hemoptysis GI: Denies: abdominal pain, nausea, vomiting, diarrhea, constipation, hematochezia or melena : Denies: flank pain, difficulty urinating, urinary frequency or hematuria Musc: Denies: back pain, joint swelling or joint redness Skin/Breast: Denies: rash or new lesions Neuro: Denies: headache(s) or confusion Medications/Allergies Home Medications Medication Instructions Recorded Confirmed Last Taken Type esomeprazole magnesium 40 mg 40 mg PO DAILY 07/30/20 02/22/24 Unknown History capsule,delayed release loratadine 10 mg tablet (Allergy 10 mg PO DAILY 07/30/20 02/22/24 Unknown History Relief (loratadine)) tamsulosin 0.4 mg capsule 0.4 mg PO DAILY 07/30/20 02/22/24 Unknown History montelukast 10 mg tablet 10 mg PO DAILY #30 tabs 08/06/20 02/22/24 Unknown Rx (Singulair) cyclobenzaprine 7.5 mg tablet 7.5 mg PO TID PRN muscle spasm 02/27/23 02/22/24 Unknown History ibuprofen 400 mg tablet 400 mg PO TID PRN fever or pain 02/27/23 02/22/24 Unknown History isosorbide mononitrate 30 mg 15 mg (1/2 x 30 mg) PO BID #90 tabs 06/21/23 02/22/24 Unknown Rx tablet,extended release 24 hr potassium chloride 20 mEq 20 meq PO DAILY #90 tabs 06/27/23 02/22/24 Unknown Rx tablet,extended release zonisamide 100 mg capsule See Rx Instructions .Route 08/04/23 02/22/24 Unknown Rx .COMPLEX #90 caps meloxicam 15 mg tablet See Rx Instructions .Route 10/09/23 02/22/24 Unknown Rx .COMPLEX #30 tabs hyaluronate sodium, stabilized 60 60 mg (3 mL) intra-articular ONCE 10/13/23 02/22/24 Unknown Rx mg/3 mL intra-articular syringe #3 mL (Durolane) nystatin 100,000 unit/gram topical topical 10/25/23 02/22/24 Unknown History powder aripiprazole 30 mg tablet See Rx Instructions .Route 11/23/23 02/22/24 Unknown Rx .COMPLEX #30 tabs fluticasone propionate 115 2 puff inhalation BID #12 grams 11/28/23 02/22/24 Unknown Rx mcg-salmeterol 21 mcg/actuation HFA inhaler (Advair HFA) lisinopril 10 mg tablet See Rx Instructions .Route 02/05/24 02/22/24 Unknown Rx .COMPLEX #90 tabs atorvastatin 20 mg tablet See Rx Instructions .Route 02/06/24 02/22/24 Unknown Rx .COMPLEX #90 tabs spironolactone 25 mg tablet 12.5 mg (1/2 x 25 mg) PO DAILY #90 02/08/24 02/22/24 Unknown Rx tabs furosemide 20 mg tablet 40 mg PO BID 02/22/24 02/22/24 Unknown History fluoxetine 40 mg capsule See Rx Instructions .Route 02/26/24 Unknown Rx .COMPLEX #60 caps modafinil 200 mg tablet (Provigil) 200 mg PO QAM #90 tabs 03/05/24 Unknown Rx albuterol sulfate 90 mcg/actuation 2 puff inhalation Q6H PRN 03/06/24 Unknown Rx aerosol inhaler (ProAir HFA) Shortness Of Breath #8.5 grams Allergies Allergy/AdvReac Type Severity Reaction Status Date / Time diphenhydramine Allergy Unknown ALGY-Rash Verified 02/22/24 08:22 [From Benadryl] Sulfa (Sulfonamide Allergy Unknown Unknown Verified 02/22/24 08:22 Antibiotics) PFSH Acute 2 PFSH: Medical History Intellectual delay MDD (major depressive disorder) Psychiatric care Essential hypertension CHF (congestive heart failure) FABIEN (obstructive sleep apnea) GERD (gastroesophageal reflux disease) Family History Other Cancer Hypertension Social History Smoking and tobacco/nicotine status: never used tobacco/nicotine Quit status (tobacco/nicotine): has quit using Year quit tobacco: 2021 Chewing tobacco Former quit date comment: about a month ago Second hand smoke exposure: Yes Alcohol intake: current Alcohol intake frequency: holidays/special occasions only Substance/Drug Use: former Adopted: No Caregiver/support person: Yes (every Monday to set up meds and 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) Lives independently: Yes Household members: none Housing: Apartment Marital status: Single Number of children: 0 Number of grandchildren: 0 Highest education level completed: Some College, No Degree service: No Current occupational status: disabled Pets and animals: Yes (rod mora) Pets & animals: cat(s) Leisure activites: music, games and other Leisure activities details: loves to cook Sexually active: No Do you think of yourself as: Straight/Heterosexual Current gender identity: Male Alexandrea/Yazidism: Faith Special alexandrea needs: No Agree to transfusion: Yes Vitals/I&O/Wt Last Vital Signs Temp 98.4 F 03/21/24 14:48 Pulse 67 03/21/24 16:15 Resp 18 03/21/24 16:15 BP 143/87 03/21/24 15:33 Pulse Ox 97 03/21/24 16:15 O2 Del Method Room Air 03/21/24 14:48 Weight last 48 hrs Weight 203.663 kg Physical Exam 2 Const: COMMON NORMALS: patient oriented x3 and alert GENERAL APPEARANCE: c ooperative NUTRITIONAL APPEARANCE: obese morbidly obese O RIENTATION/CONSCIOUSNESS: Yes awake HENMT: COMMON NORMALS: oropharynx normal Neck/C-Spine: COMMON NORMALS: no JVD Resp: COMMON NORMALS: normal respiratory effort and clear to auscultation bilaterally AUSCULTATION: clear to auscultation bilaterally Cardio: COMMON NORMALS: no JVD, regular rhythm, S1 normal heart sound present, S2 normal heart sound present and No murmurs present (Cardio) RHYTHM: regular rhythm HEART SOUNDS: S1 normal heart sound present and S2 normal heart sound present GI: COMMON NORMALS: Normal to inspection, nondistended, normoactive bowel sounds present, Soft to palpation and non-tender PALPATION: Yes Soft to palpation Extremity: COMMON NORMALS: no joint enlargement GENERAL: Yes edema (2+) OTHER: 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 Mild pinkish discoloration but without definite erythema Neuro: COMMON NORMALS: patient oriented x3 and moves all extremities S ENSORIUM/ORIENTATION: Yes alert Data 03/21/24 14:46 03/21/24 14:46 A&P Assessment and plan (1) CHF (congestive heart failure): CHF exacerbation with worsening lower extremity edema, severe, symptomatic, limiting, With failure of outpatient management including increase in diuretic dose.. Difficulty walking. Exertional dyspnea. Does have some chest tightness. Reviewed vitals, CBC, CMP, troponin series, NT proBNP, chest x-ray, EKG, ER note, discussed with ER provider. On my interpretation without obvious sign of ischemia. Q waves reported in V3/4, but I do not see any Q waves. Pending official read. He states has not been using CPAP due to claustrophobia. Possibly contributing to decompensation of CHF. Does have lower extremity edema mild pink discoloration without wesley erythema, may be at risk of developing cellulitis. Discussed with him we will reassess and consider in case of worsening erythema or symptoms to suggest infection. Treat CHF exacerbation, as well as usual dose of Lasix, discussed with him continued IV Lasix, monitor for risk of electrolyte deficiency, renal dysfunction with IV Lasix, reassess chemistry. Check magnesium. Monitor YUNIER. Weights. Will attempt to obtain imaging with contrast-enhanced echocardiogram as type of heart failure currently is unknown and does not have an echo on file. Certainly due to body habitus the usable study may be difficult to obtain. Complete troponin EKG series to assess for any ischemia. Qualifiers: Heart failure type: unspecified Heart failure chronicity: unspecified Qualified Code(s): I50.9 - Heart failure, unspecified Plan FABIEN: Does not wear BiPAP due to claustrophobia. HTN: Monitor blood pressures. Requesting to confirm home medications, will likely continue lisinopril, Imdur, spironolactone. GERD: Continue PPI Morbid obesity: Follow-up with primary provider regarding help with weight loss options. Attestations 2 Medical Necessity Statement*: Admission of over 2 midnights anticipated for assessment of management of exacerbation of CHF exacerbation. Diagnoses Congestive heart failure, unspecified HF chronicity, unspecified heart failure type I50.9 Heart failure type: unspecified Heart failure chronicity: unspecified
[2024-03-21 17:08] VITALS: BP 149/86; PULSE 72; RESP 18; O2SAT 96
[2024-03-21 17:34] LABS: Troponin 5 2HR 11.28 ng/L (0-15)
[2024-03-21 17:35] LABS: Troponin 5 2HR Delta -0.72 ABS# (0-10)
[2024-03-21 17:44] VITALS: BP 104/66; PULSE 69; RESP 18; TEMP 36.4; O2SAT 95
--- NOTE | 2024-03-21 17:44 | USCV_ITS ---
Esau Ibarra Age: 53 Gender: M : 1970 Exam Date: 03/21/2024 18:13 Ordering Phys: Saroj eWlls MD Technologist: MANI Exam Location: [facility] – [place] Indication: SOB, CAMPBELL, HTN, FABIEN, No history of cardiac intervention per patient. Morbid Obesity 6ft 4 inches 449 lbs. BP: 104 / 66 HR: 67 Rhythm: Sinus Technical Quality: Suboptimal with OPTISON MEASUREMENTS (Male / Female) Normal Values 2D ECHO LV Diastolic Diameter PLAX 3.9 cm 4.2 - 5.9 / 3.9 - 5.3 cm IVS Diastolic Thickness 1.5 cm 0.6 - 1.0 / 0.6 - 0.9 cm IVS Systolic Thickness 2.0 cm LVPW Diastolic Thickness 1.8 cm 0.6 - 1.0 / 0.6 - 0.9 cm LVPW Systolic Thickness 2.2 cm LVOT Diameter 2.0 cm LV Ejection Fraction 2D Teich 62.9 % LV Ejection Fraction MOD 2C 59.3 % LV Ejection Fraction 2C AL 59.8 % LA Diameter 4.4 cm Aorta at Sinotubular Diameter 3.1 cm IVC Diameter 2.0 cm M-MODE LA Ao Ratio MM 0.9 AV Cusp Separation MM 2.0 cm DOPPLER AV Peak Velocity 139.0 cm/s LVOT Peak Velocity 116.0 cm/s AV Area Cont Eq vti 3.1 cm squared AV Area Cont Eq pk 2.5 cm squared MV Peak Velocity 95.0 cm/s MV Area PHT 4.9 cm squared Mitral E to A Ratio 1.7 TR Peak Velocity 283.0 cm/s TR Peak Gradient 32.0 mmHg Right Atrial Pressure 3.0 mmHg Pulmonary Artery Systolic Pressu 35.0 mmHg FINDINGS Left Ventricle Normal left ventricular size and systolic function, EF 60%. Technically difficult study. No obvious regional wall motion abnormalities were noted. (Echo contrast - Optison was used to delineate the endocardium and to estimate the LV ejection fraction) Right Ventricle Right ventricle not well visualized. Normal EF normal size Right Atrium Right atrium not well visualized. Left Atrium Possibly of normal size Mitral Valve No gross abnormalities noted Aortic Valve Thickened aortic valve. Tricuspid Valve Tricuspid valve not well visualized. Pulmonic Valve Pulmonic valve not well visualized. Pericardium No pericardial effusion. Aorta Normal aortic annulus size. IVC Inferior vena cava not visualized. CONCLUSIONS Normal left ventricular size and systolic function, EF 60%. Technically difficult study. No obvious regional wall motion abnormalities were noted. (Echo contrast - Optison was used to delineate the endocardium and to estimate the LV ejection fraction). Thickened aortic valve. Possibly normal chamber sizes. There is no pericardial effusion. No similar previous studies are available for comparison Dr Jing Crockett MD FACC (Electronically Signed) Final Date: 21 March 2024 19:33 S
[2024-03-21 17:45] VITALS: BMI 54.6
[2024-03-21] MEDS: enoxaparin 40 mg/0.4 mL Syringe SUBCUT (19:07)
[2024-03-21 19:43] VITALS: BP 116/57; PULSE 68; RESP 17; TEMP 36.5; O2SAT 94
--- NOTE | 2024-03-21 20:43 | ECG_ITS ---
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 Measurements Intervals [place] Rate: 69 P: 45 RI: 186 QRS: -2 QRSD: 110 T: 30 QT: 396 QTc: 427 Interpretive Statements SINUS RHYTHM LOW QRS VOLTAGE IN PRECORDIAL LEADS [QRS DEFLECTION < 1.0 mV IN CHEST LEADS] POSSIBLE ANTERIOR MYOCARDIAL INFARCTION , PROBABLY OLD [30 ms Q WAVE IN V3/V4, OR R < 0.2 mV IN V4] Compared to ECG 03/21/2024 18:21:05 Low QRS voltage now present Atrial-paced complex(es) or rhythm no longer present Myocardial infarct finding still present Electronically Signed On 03-22-2024 20:50:19 CDT by Jing Crockett M.D. [id number]
[2024-03-21 21:41] LABS: Troponin 5 6HR 11.74 ng/L (0-15)
[2024-03-21 21:42] LABS: Troponin 5 6HR Delta -0.26 ng/L (0-12)
[2024-03-21] MEDS: acetaminophen 325 mg Tablet 650 MG PO (23:09)
[2024-03-22] VITALS (9 sets, daily range): BP systolic 102–132; BP diastolic 54–73; PULSE 59–89; RESP 18–22; TEMP 36.4–37; O2SAT 94–96
[2024-03-22] MEDS: FUROsemide 10 mg/mL SDV 4mL 40 MG IVP (03:00)
[2024-03-22 05:24] LABS: Basophils % 0.8 %; Eosinophils # 0.2 10^3/uL (0.0-0.8); Eosinophils % 4.1 %; Hematocrit 37.9 % (37-53); Lymphocytes # 1.3 10^3/uL (0.8-4.8); Mean Corpuscular HGB Conc 32.2 g/dL (30-55); Mean Corpuscular Volume 96.4 fl (82-101); Mean Platelet Volume 10.2 fL (7.4-10.4); Monocytes # 0.5 10^3/uL (0.2-0.9); Monocytes % 10.6 %; Neutrophils # 2.96 10^3/uL (1.8-7.7); Neutrophils % 58.3 %; Nucleated Red Blood Cells % 0 %; Platelet Count 181 10^3/cmm (157-399); Red Blood Count 3.93 10^6/uL (3.85-5.65); Red Cell Distribution Width 13.5 % (12.1-15.1); White Blood Count 5.08 10^3/uL (3.29-11.43)
[2024-03-22 05:54] LABS: Anion Gap 13.8 (5-19); Blood Urea Nitrogen 30 mg/dL (6-20); Calcium 8.7 mg/dL (8.5-10.5); Carbon Dioxide 29 mmol/L (22-29); Chloride 101 mmol/L (98-107); Glucose 93 mg/dL (65-115); Magnesium 2.2 mg/dL (1.7-2.3); Osmolality Calculated 296 mOsm/kg (285-295); Potassium 3.8 mmol/L (3.5-5.1); Sodium 140 mmol/L (136-145)
[2024-03-22 05:57] LABS: Creatinine Clr Calc Pharmacy 115.2622
[2024-03-22] MEDS: perflutren protein-a microsphr 0.22 mg/mL SDV 3 mL IV (07:29)
[2024-03-22] MEDS: tamsulosin 0.4 mg Capsule 0.400000000000000022 MG PO (09:47)
[2024-03-22] MEDS: albumin 25 G/100 ML BAG 60 G IV (09:47)
[2024-03-22] MEDS: pantoprazole DR 40 mg Tablet PO (09:47)
--- NOTE | 2024-03-22 09:47 | PC.CHAP ---
Pastoral Care Encounter/Spiritual Assessment Type of Contact [] Declined explosive ordnance handler visit [] Patient/Family/Request visit [] Outpatient visit [] Follow-up visit [] Physician referral [] Code/Alert [x] Routine visit [] Staff referral [] Actively dying [] Patient sleeping [] Family support [] [] Out of room [] Palliative care [] [] Receiving care in room [] Pre-surgical visit [] Trauma [] Long length of stay [] ICU visit [] Other: Relational/Emotional Strength [x] Patient feels connected with others/family/visitors/staff [] Distress [] Loneliness/isolation [] Abandonment Spirituality of Patient [x] Person of [place] [] Attends Taoist of their [place] [x] Believes in Prayer [] Reads Bible or Sikh materials [] There are Spiritual issues to be addressed Book Publisher Interventions [x] Prayer [x] Active listening [x] Non-anxious presence [] Spiritual/emotional support [] Crisis/trauma care [] Spiritual counseling [] Bereavement support [] Provided bereavement packet [] Provided Bible/devotional materials [] Provided toy/stuffed animal, coloring book to patient or family member [] Provided Communion [] Anointing/[place] [] Salvation [x] Completed spiritual assessment [] Other: Impact on Illness or Injury [] Angry [] Fearful [] Anxious [] Often cries [] Exhaustion [] Unable to work [] Unable to attend baptism [] Unable to walk/stand [] Unable to read [] Unable to drive [] Unable to eat/drink [] Unable to sleep [] Unable to be with family [] Patient intubated [] Other: Summary Time spent with patient 10 min
--- NOTE | 2024-03-22 09:55 | PC.SOCIAL ---
IMM Updated Updated pt on IMM. No questions voiced. Provided pt a copy. Initialed, dated, & timed a copy & placed in chart.
[2024-03-22] MEDS: doxycycline 100 MG in sodium chloride 0.9% (plus) 100 ML IV ×2 (11:32→22:31)
[2024-03-22] MEDS: ipratropium-albuterol 3 mL Neb INHALATION ×2 (16:37→20:30)
[2024-03-22] MEDS: isosorbide mononitrate ER 30 mg Tablet 15 MG PO (16:51)
[2024-03-22] MEDS: terbinafine 1% Cream 15 gm 1 APPLIC TOPICAL (16:51)
[2024-03-22] MEDS: enoxaparin 40 mg/0.4 mL Syringe SUBCUT (16:52)
[2024-03-22] MEDS: zonisamide 100 MG Capsule 300 MG PO (20:15)
[2024-03-22] MEDS: ARIPiprazole 30 mg Tablet PO (20:15)
[2024-03-22] MEDS: simethicone 80 mg Chew PO (20:16)
[2024-03-22] MEDS: atorvastatin 40 mg Tablet 20 MG PO (20:16)
[2024-03-22] MEDS: budesonide 0.5 mg/2 mL Neb INHALATION (20:30)
--- NOTE | 2024-03-22 20:31 | P.PN_ITS ---
Subjective 2 Subjective: He reports he is feeling slightly better. Legs do not feel quite as edematous. Still some superficial induration anteriorly and shins feel warmer than usual. Vitals/I&O/Wt Last Vital Signs Temp 97.5 F L 03/22/24 19:42 Pulse 61 03/22/24 19:42 Resp 19 H 03/22/24 19:42 BP 132/69 03/22/24 19:42 Pulse Ox 95 03/22/24 19:42 O2 Del Method Room Air 03/22/24 19:42 03/22/24 03/22/24 03/22/24 06:59 14:59 22:59 Intake Total 480 / 980 798 / 798 480 / 1278 Output Total 900 / 3700 525 / 525 200 / 725 Balance -420 / -2720 273 / 273 280 / 553 Weight last 48 hrs Weight 203.98 kg Weight 203.663 kg Weight 203.663 kg Physical Exam 2 Const: COMMON NORMALS: patient oriented x3 and alert GENERAL APPEARANCE: c ooperative NUTRITIONAL APPEARANCE: obese morbidly obese O RIENTATION/CONSCIOUSNESS: Yes awake HENMT: COMMON NORMALS: oropharynx normal Neck/C-Spine: COMMON NORMALS: no JVD Resp: COMMON NORMALS: normal respiratory effort and clear to auscultation bilaterally AUSCULTATION: clear to auscultation bilaterally Cardio: COMMON NORMALS: no JVD, regular rhythm, S1 normal heart sound present, S2 normal heart sound present and No murmurs present (Cardio) RHYTHM: regular rhythm HEART SOUNDS: S1 normal heart sound present and S2 normal heart sound present GI: COMMON NORMALS: Normal to inspection, nondistended, normoactive bowel sounds present, Soft to palpation and non-tender PALPATION: Yes Soft to palpation Extremity: COMMON NORMALS: no joint enlargement GENERAL: Yes edema (2+) OTHER: 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 Mild pinkish discoloration but without definite erythema Neuro: COMMON NORMALS: patient oriented x3 and moves all extremities S ENSORIUM/ORIENTATION: Yes alert Data 03/22/24 04:26 03/22/24 04:26 A&P Assessment and plan (1) CHF (congestive heart failure): Noted some improvement in his condition today, he feels somewhat better, less dyspnea, some improvement in lower extremity edema, her, with rapid worsening of kidney function, creatinine up to 1.4. Discussed with family had to hold Lasix. Requested and discussed with him and dose of albumin infusion. Additionally reviewed echocardiogram with him, contra study reveals normal ejection fraction. Suspected diastolic congestive heart failure distribution on presentation, possibly exacerbated by his sleep apnea, encouraged him to wear BiPAP, he states that he will make himself wear it from here on. We will hold off further diuresis for now at risk of further kidney injury, reassess renal function. Reassess electrolytes. Reviewed vitals, CBC, BMP, magnesium, echocardiogram. Discussed with nursing, nurse case management. Monitor YUNIER. Weights. Complete troponin EKG series to assess for any ischemia. Reviewed troponin series. He is chest pain-free. Troponin without any significant elevation. Qualifiers: Heart failure type: unspecified Heart failure chronicity: unspecified Qualified Code(s): I50.9 - Heart failure, unspecified (2) Cellulitis: Lower extremity cellulitis, more so on the left, disposing factors include lower extremity edema as well as athlete's foot. Discussed with him treatment with antibiotic. Requested doxycycline. Terbinafine for athlete's foot. Discussed with him in the future seeking treatment for fungal foot infection to reduce chance of bacterial cellulitis. Plan FABIEN: Does not wear BiPAP due to claustrophobia. HTN: Monitor blood pressures. Requesting to confirm home medications, will likely continue lisinopril, Imdur, spironolactone. GERD: Continue PPI Morbid obesity: Follow-up with primary provider regarding help with weight loss options. Attestations 2 Medical Necessity Statement*: Continue hospitalization for additional assessment of acute kidney injury after congestive heart failure and diuresis, cellulitis. and High MDM includes amount and/or complexity of data reviewed/ordered [ resulted lab(s)/test(s), ordered lab(s)/test(s) and other healthcare professional discussion] as documented Diagnoses Congestive heart failure, unspecified HF chronicity, unspecified heart failure type I50.9 Heart failure type: unspecified Heart failure chronicity: unspecified Cellulitis L03.90
[2024-03-23 02:00] VITALS: PULSE 61; RESP 19; O2SAT 97
[2024-03-23] MEDS: ipratropium-albuterol 3 mL Neb INHALATION ×2 (02:00→08:06)
[2024-03-23] MEDS: acetaminophen 325 mg Tablet 650 MG PO (03:52)
[2024-03-23 04:00] VITALS: BP 114/65; PULSE 70; RESP 18; TEMP 36.3; O2SAT 92
[2024-03-23 05:37] LABS: Basophils % 0.6 %; Eosinophils # 0.1 10^3/uL (0.0-0.8); Eosinophils % 2.5 %; Hematocrit 36.8 % (37-53); Lymphocytes # 1.2 10^3/uL (0.8-4.8); Lymphocytes % 22.4 %; Mean Corpuscular HGB Conc 31.5 g/dL (30-55); Mean Corpuscular Hemoglobin 30.8 pg (27-33); Mean Corpuscular Volume 97.6 fl (82-101); Mean Platelet Volume 10.2 fL (7.4-10.4); Monocytes # 0.6 10^3/uL (0.2-0.9); Monocytes % 12.3 %; Neutrophils # 3.24 10^3/uL (1.8-7.7); Nucleated Red Blood Cells % 0 %; Platelet Count 167 10^3/cmm (157-399); Red Blood Count 3.77 10^6/uL (3.85-5.65); Red Cell Distribution Width 13.6 % (12.1-15.1); White Blood Count 5.22 10^3/uL (3.29-11.43)
[2024-03-23 06:04] LABS: Anion Gap 12.2 (5-19); Blood Urea Nitrogen 28 mg/dL (6-20); Calcium 8.9 mg/dL (8.5-10.5); Carbon Dioxide 29 mmol/L (22-29); Chloride 102 mmol/L (98-107); Creatinine Clr Calc Pharmacy 108.3234; Glucose 115 mg/dL (65-115); Magnesium 2.3 mg/dL (1.7-2.3); Osmolality Calculated 294 mOsm/kg (285-295); Potassium 4.2 mmol/L (3.5-5.1); Sodium 139 mmol/L (136-145)
[2024-03-23] MEDS: tamsulosin 0.4 mg Capsule 0.400000000000000022 MG PO (07:54)
[2024-03-23] MEDS: pantoprazole DR 40 mg Tablet PO (07:54)
[2024-03-23] MEDS: fluoxetine 20 mg Capsule 80 MG PO (07:54)
[2024-03-23] MEDS: isosorbide mononitrate ER 30 mg Tablet 15 MG PO (07:54)
[2024-03-23] MEDS: terbinafine 1% Cream 15 gm 1 APPLIC TOPICAL (07:55)
[2024-03-23 08:00] VITALS: BP 106/52; PULSE 73; RESP 18; TEMP 36.5; O2SAT 94
[2024-03-23 08:06] VITALS: PULSE 76; RESP 18; O2SAT 93
[2024-03-23] MEDS: budesonide 0.5 mg/2 mL Neb INHALATION (08:06)
--- NOTE | 2024-03-23 11:35 | PC.NURSE ---
Discharge pending ride home. 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
--- NOTE | 2024-03-23 18:34 | P.DS_ITS ---
Discharge Providers Date of Admission: 03/21/24 16:08 Date of Discharge: March 23, 2024 Attending Provider at Admission: Saroj Wells Attending Provider at Discharge: Saroj Wells Primary Care Provider: Francesco Grady MD Diagnoses at Discharge Discharge Diagnosis (1) CHF (congestive heart failure): Status: Acute Qualifiers: Heart failure type: unspecified Heart failure chronicity: unspecified Qualified Code(s): I50.9 - Heart failure, unspecified (2) Cellulitis: Status: Acute Reason for Visit Reason for Visit: sob/cp Brief History: 53-year-old gentleman with history of co ngestive heart failure on diuretic at home, comes in due to progressive worsening lower extremity edema despite increasing diuretic dose, more difficulty with ambulation, dyspnea on exertion. Hospital Course Hospital Course Received IV diuretic with good urine output, lower extremity edema with improvement, her, with worsening renal function, creatinine came up to 1.4. Additionally with noted some induration, mild erythema of anterior lower legs with athlete's foot, with warmth on palpation suggestive of secondary bacterial cellulitis. Started on doxycycline. Ultrasound contrast-enhanced echocard iogram showed normal ejection fraction. With worsening kidney function diuretic plus, was given dose of albumin. Creatinine stabilized, 1.5 this morning, overall he is feeling better. Please reassess renal function. For now additional diuretic is transition to as needed basis. He is encouraged to wear his BiPAP at home to help avoid additional exacerbation. He is also noted to have blood pressures within good range although slightly soft 106/52, despite not having been resumed on his lisinopril or spironolactone. Continues on Imdur. Other antihypertensives for now are discontinued due to concern for blood pressure start to low contributing to his fatigability. Please reassess. Physical Exam Const: COMMON NORMALS: patient oriented x3 and alert GENERAL APPEARANCE: cooperative NUTRITIONAL APPEARANCE: obese morbidly obese ORIENTATION/CONSCIOUSNESS: Yes awake HENMT: COMMON NORMALS: oropharynx normal Neck/C-Spine: COMMON NORMALS: no JVD Resp: COMMON NORMALS: normal respiratory effort and clear to auscultation bilaterally AUSCULTATION: clear to auscultation bilaterally Cardio: COMMON NORMALS: no JVD, regular rhythm, S1 normal heart sound present, S2 normal heart sound present and No murmurs present (Cardio) RHYTHM: regular rhythm HEART SOUNDS: S1 normal heart sound present and S2 normal heart sound present GI: COMMON NORMALS: Normal to inspection, nondistended, normoactive bowel sounds present, Soft to palpation and non-tender PALPATION: Yes Soft to palpation Extremity: COMMON NORMALS: no joint enlargement GENERAL: Yes edema (2+) OTHER: 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 Mild pinkish discoloration, some induration anteriorly. Neuro: COMMON NORMALS: patient oriented x3 and moves all extremities SENSORIUM/ORIENTATION: Yes alert Discharge Data Studies Completed and Pending Completed Studies During Hospitalization Category Date Time Status XR chest 1V portable [id number] Stat Exams 03/21/24 14:43 Completed CV. echo wo/w contrast [id number] Routine Ultrasound 03/21/24 17:44 Completed Radiology Impressions Chest X-Ray 03/21/24 14:43 IMPRESSION: 1. No acute process. 2. Elevated RIGHT diaphragm. Laboratory Results WBC 5.22 10^3/uL (3.29-11.43) 03/23/24 04:44 RBC 3.77 10^6/uL (3.85-5.65) L 03/23/24 04:44 Hgb 11.60 g/dL (11.27-16.99) 03/23/24 04:44 Hct 36.8 % (37-53) L 03/23/24 04:44 MCV 97.6 fl (82-101) 03/23/24 04:44 MCH 30.8 pg (27-33) 03/23/24 04:44 MCHC 31.5 g/dL (30-55) 03/23/24 04:44 RDW 13.6 % (12.1-15.1) 03/23/24 04:44 Plt Count 167 10^3/cmm (157-399) 03/23/24 04:44 MPV 10.2 fL (7.4-10.4) 03/23/24 04:44 Neut % (Auto) 62.0 % 03/23/24 04:44 Lymph % (Auto) 22.4 % 03/23/24 04:44 [place] % (Auto) 12.3 % 03/23/24 04:44 Eos % (Auto) 2.5 % 03/23/24 04:44 Baso % (Auto) 0.6 % 03/23/24 04:44 Neut # (Auto) 3.24 10^3/uL (1.8-7.7) 03/23/24 04:44 Lymph # (Auto) 1.2 10^3/uL (0.8-4.8) 03/23/24 04:44 [place] # (Auto) 0.6 10^3/uL (0.2-0.9) 03/23/24 04:44 Eos # (Auto) 0.1 10^3/uL (0.0-0.8) 03/23/24 04:44 Baso # (Auto) 0.0 10^3/uL (0.0-0.1) 03/23/24 04:44 Nucleated RBC % (auto) 0 % 03/23/24 04:44 Nucleated RBCs # 0.0 /100WBC 03/23/24 04:44 Specimen Type Arterial 03/21/24 15:45 Sample Site Radial, left 03/21/24 15:45 ABG pH 7.40 (7.35-7.45) 03/21/24 15:45 ABG pCO2 40.7 mmHg (35-45) 03/21/24 15:45 ABG pO2 71.0 mmHg (80.0-100.0) L 03/21/24 15:45 ABG PO2/FiO2 Ratio 338 03/21/24 15:45 ABG HCO3 24.9 mmol/L (22-26) 03/21/24 15:45 ABG O2 Saturation 94.7 03/21/24 15:45 ABG Base Excess 0.0 mmol/L (-2.0-2.0) 03/21/24 15:45 [place] Test Pos 03/21/24 15:45 A-a O2 Gradient 3.6 mmHg (5-10) L 03/21/24 15:45 Hematocrit 38.9 % (42-52) L 03/21/24 15:45 Hgb O2 Saturation 93.4 % (95-100) L 03/21/24 15:45 Carboxyhemoglobin 0.9 %THgb (0.4-20.1) 03/21/24 15:45 Methemoglobin 0.4 % (0.4-1.5) 03/21/24 15:45 Total Hemoglobin 12.7 g/dL (14-18) L 03/21/24 15:45 Sodium 140.0 mmol/L (131-143) 03/21/24 15:45 Potassium 3.9 mmol/L (3.5-5.0) 03/21/24 15:45 Glucose 92.0 mg/dL (70-115) 03/21/24 15:45 Ionized Calcium 1.2 mmol/L (1.1-1.4) 03/21/24 15:45 O2 Delivery Device Room air 03/21/24 15:45 FiO2 21.0 % 03/21/24 15:45 Radio Interference Supervisor ID Cak 03/21/24 15:45 Sodium 139 mmol/L (136-145) 03/23/24 04:44 Potassium 4.2 mmol/L (3.5-5.1) 03/23/24 04:44 Chloride 102 mmol/L (98-107) 03/23/24 04:44 Carbon Dioxide 29 mmol/L (22-29) 03/23/24 04:44 Anion Gap 12.2 (5-19) 03/23/24 04:44 BUN 28 mg/dL (6-20) H 03/23/24 04:44 Creatinine 1.5 mg/dL (0.7-1.2) H 03/23/24 04:44 GFR Calculation 49.0 mL/min (90-130) L 03/23/24 04:44 Glucose 115 mg/dL (65-115) 03/23/24 04:44 Calculated Osmolality 294 mOsm/kg (285-295) 03/23/24 04:44 Lactic Acid 1.9 mmol/L (0.5-2.2) 03/21/24 14:46 Calcium 8.9 mg/dL (8.5-10.5) 03/23/24 04:44 Magnesium 2.3 mg/dL (1.7-2.3) 03/23/24 04:44 Total Bilirubin 0.3 mg/dL (0.15-1.2) 03/21/24 14:46 AST 20 U/L (0-40) 03/21/24 14:46 ALT 20 U/L (0-41) 03/21/24 14:46 Alkaline Phosphatase 172 U/L (40-130) H 03/21/24 14:46 Troponin T Baseline 12 ng/L (0-15) 03/21/24 14:46 Troponin T 120 Minute 11.28 ng/L (0-15) 03/21/24 16:47 Delta Troponin T -0.72 ABS# (0-10) L 03/21/24 16:47 Troponin T Hi Sens 6Hr 11.74 ng/L (0-15) 03/21/24 21:02 Troponin T Hi Sens 6Hr Delta -0.26 ng/L (0-12) L 03/21/24 21:02 C-Reactive Protein 12.1 mg/L (0.0-4.9) H 03/21/24 14:46 NT-Pro-B Natriuret Pep 124 pg/mL (0-125) 03/21/24 14:46 Total Protein 6.7 g/dL (6.6-8.7) 03/21/24 14:46 Albumin 3.7 g/dL (3.5-5.2) 03/21/24 14:46 Globulin 3.0 g/dL (1.3-4.6) 03/21/24 14:46 Vitals Last Vital Signs Temp 97.7 F 03/23/24 08:00 Pulse 76 03/23/24 08:06 Resp 18 03/23/24 08:06 BP 106/52 03/23/24 08:00 Pulse Ox 93 03/23/24 08:06 O2 Del Method Room Air 03/23/24 08:06 Discharge Plan Discharge Patient Disposition: Home Condition: Stable Prescriptions: New doxycycline hyclate 100 mg capsule 100 mg PO BID 12 Days Qty: 24 0RF terbinafine HCl 1 % Cream 1 applic topical BID 14 Days Qty: 30 1RF Continued tamsulosin 0.4 mg capsule 0.4 mg PO DAILY loratadine [Allergy Relief (loratadine)] 10 mg tablet 10 mg PO DAILY aripiprazole 30 mg tablet See Rx Instructions .ROUTE .COMPLEX Qty: 30 12RF Dose Instruction: TAKE 1 TABLET BY MOUTH EVERY DAY AT BEDTIME Rx Instructions: TAKE 1 TABLET BY MOUTH EVERY DAY AT BEDTIME Durolane 60 mg/3 mL syringe 60 mg intra-articular ONCE Qty: 3 0RF nystatin 100,000 unit/gram powder 1 applic topical DAILY PRN (Reason: Skin Irritation) isosorbide mononitrate 30 mg tablet extended release 24 hr 15 mg PO BID Qty: 90 3RF zonisamide 100 mg capsule See Rx Instructions .ROUTE .COMPLEX Qty: 90 11RF Dose Instruction: TAKE 3 CAPSULES BY MOUTH EVERY NIGHT AT BEDTIME Rx Instructions: TAKE 3 CAPSULES BY MOUTH EVERY NIGHT AT BEDTIME fluticasone propion-salmeterol [Advair HFA] 115-21 mcg/actuation HFA aerosol inhaler 2 puff inhalation BID Qty: 12 6RF atorvastatin 20 mg tablet See Rx Instructions .ROUTE .COMPLEX Qty: 90 2RF Dose Instruction: TAKE 1 TABLET BY MOUTH EVERY BEDTIME Rx Instructions: TAKE 1 TABLET BY MOUTH EVERY BEDTIME fluoxetine 40 mg capsule See Rx Instructions .ROUTE .COMPLEX Qty: 60 8RF Dose Instruction: TAKE 2 CAPSULES BY MOUTH EVERY DAY Rx Instructions: TAKE 2 CAPSULES BY MOUTH EVERY DAY modafinil [Provigil] 200 mg tablet 200 mg PO QAM Qty: 90 1RF albuterol sulfate [ProAir HFA] 90 mcg/actuation HFA aerosol inhaler 2 puff inhalation Q6H PRN (Reason: Shortness Of Breath) Qty: 8.5 3RF pantoprazole 40 mg tablet,delayed release (DR/EC) 40 mg PO DAILY Symbicort 80-4.5 mcg/actuation HFA aerosol inhaler 1 inh INHALATION BID ipratropium-albuterol 0.5 mg-3 mg(2.5 mg base)/3 mL solution for nebulization 3 ml INHALATION QID PRN (Reason: Shortness Of Breath) Changed furosemide 20 mg tablet 40 mg PO BID PRN (Reason: Edema) Qty: 1 0RF Rx Instructions: Change to PRN only potassium chloride 20 mEq tablet extended release 10 meq PO DAILY PRN (Reason: With Lasix) Qty: 90 3RF Discontinued meloxicam 15 mg tablet See Rx Instructions .ROUTE .COMPLEX Qty: 30 11RF Dose Instruction: TAKE ONE TAB BY MOUTH DAILY Rx Instructions: TAKE ONE TAB BY MOUTH DAILY lisinopril 10 mg tablet See Rx Instructions .ROUTE .COMPLEX Qty: 90 3RF Dose Instruction: TAKE ONE (1) TABLET BY MOUTH DAILY . Rx Instructions: TAKE ONE (1) TABLET BY MOUTH DAILY . spironolactone 25 mg tablet 12.5 mg PO DAILY Qty: 90 1RF Discharge Orders: Discharge Order (Routine); Ordered 03/23/24 Ordered By: Saroj Wells Referrals: Francesco Grady MD [Primary Care Provider] - 04/01/24 11:00 am Discharge Diet: Cardiac Discharge Activity: Increase activity as tolerated Patient Instructions: Doxycycline (By mouth), Acute Kidney Injury (GEN), Cellulitis (GEN) Activity Restrictions/Additional Instructions: Please follow-up with your primary doctor after mild congestive heart failure exacerbation, as well as cellulitis. Complete treatment with antibiotic. Treat fungal infection of the feet to help reduce chance of recurrence of cellulitis. Avoid lower leg swelling to also help prevent cellulitis. Elevate your legs. Consider compression stockings to help reduce chance of swelling. Take Lasix as needed in case of worsening edema. Take potassium only with Lasix. Please stop meloxicam due to risk of kidney injury as well as risk of heart attack and stroke associated with the medication. Avoid NSAIDs if possible. Have your primary doctor follow-up your kidney function assessed acute kidney injury versus chronic kidney disease. Once the kidney function is stable consider addition of Farxiga for for its cardiac benefits. Follow-up with your primary doctor to discuss options to help you with weight loss. Discharge Attestations Time Spent in Discharge Care*: greater than 30 min Quality Metrics Clinical Quality Measures [ No reported AMI, CVA or VTE this stay] Coding Level of Care Code 50751 Total time (in minutes) for Discharge: 45 Diagnoses Congestive heart failure, unspecified HF chronicity, unspecified heart failure type I50.9 Heart failure type: unspecified Heart failure chronicity: unspecified Cellulitis L03.90
== END 2024-03-23 12:06 | disposition home or self-care (01) | DRG 291 ==
LOC: ER 15:46 → MEDSURG 16:08
PROVIDERS: Admitting Provider Internal Medicine; Emergency Provider Emergency Medicine; PCP Family Medicine; Visit Provider Internal Medicine
DX: I11.0 Hypertensive heart disease with heart failure (principal); I50.33 Acute on chronic diastolic (congestive) heart failure; L03.116 Cellulitis of left lower limb; L03.115 Cellulitis of right lower limb; Z68.43 Body mass index [BMI] 50.0-59.9, adult; E66.01 Morbid (severe) obesity due to excess calories; G47.33 Obstructive sleep apnea (adult) (pediatric); K21.9 Gastro-esophageal reflux disease without esophagitis; F32.9 Major depressive disorder, single episode, unspecified; Z87.891 Personal history of nicotine dependence
CPT/HCPCS: 36415; 36600; 71045; 80048; 80051; 80053; 82330; 82805; 83605; 83735; 83880; 84484; 85025; 86140; 93005; 94640; 96372; 96374; 99285; C8929; J1650; J1940; J3490; J7626; P9046; Q9956

== ENCOUNTER 2024-04-06 17:45 | Emergency (ER) | payer MEDICARE, MEDICAID, SELFPAY ==
[2022-03-02 14:14] VITALS: BP 126/71; BMI 52.2
[2024-04-06 17:52] VITALS: BP 136/72; PULSE 78; RESP 26; O2SAT 97
[2024-04-06 17:59] VITALS: TEMP 36.4
--- NOTE | 2024-04-06 18:22 | W.ED.HA ---
HPI - Headache General: Chief Complaint: Headache Stated Complaint: HEADACHE Time Seen by Provider: 04/06/24 17:47 History of Present Illness: 53-year-old male coming in by ambulance. He says that he awoke with a headache from a nap. He says he was dizzy as well. He notes that he has had burning with urination for the last 2 days. His urine has looked dark. It has not decreased in amount. No fever. No vomiting. No significant belly pain. No cough or other symptoms. [facility] ED PFSH: Medical History Intellectual delay MDD (major depressive disorder) Psychiatric care Essential hypertension CHF (congestive heart failure) FABIEN (obstructive sleep apnea) GERD (gastroesophageal reflux disease) Family History Other Cancer Hypertension Social History Smoking and tobacco/nicotine status: never used tobacco/nicotine Quit status (tobacco/nicotine): has quit using Year quit tobacco: 2021 Chewing tobacco Former quit date comment: about a month ago Second hand smoke exposure: Yes Alcohol intake: current Alcohol intake frequency: holidays/special occasions only Substance/Drug Use: former Adopted: No Caregiver/support person: Yes (every Monday to set up meds and 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) Lives independently: Yes Household members: none Housing: Apartment Marital status: Single Number of children: 0 Number of grandchildren: 0 Highest education level completed: Some College, No Degree service: No Current occupational status: disabled Pets and animals: Yes (rod mora) Pets & animals: cat(s) Leisure activites: music, games and other Leisure activities details: loves to cook Sexually active: No Do you think of yourself as: Straight/Heterosexual Current gender identity: Male Alexandrea/Muslim: Scientology Special alexandrea needs: No Agree to transfusion: Yes Physical Exam Const: COMMON NORMALS: no acute distress GENERAL APPEARANCE: cooperative; not ill appearing and not frail appearing HENMT: COMMON NORMALS: normocephalic, atraumatic and Normal external nose present HEAD & SCALP: normocephalic and atraumatic FACE & SINUS: normal facial exam and face symmetric NOSE: Normal external nose present Eye: COMMON NORMALS: Equal, round and reactive pupils present and EOMs intact bilaterally PUPIL: Yes Equal, round and reactive pupils present Neck/C-Spine: GENERAL: Yes trachea midline Chest: CHEST: Yes Symmetrical chest wall rise Resp: COMMON NORMALS: normal respiratory effort, No retractions, No use of accessory muscles and clear to auscultation bilaterally AUSCULTATION: clear to auscultation bilaterally Cardio: COMMON NORMALS: regular rate and regular rhythm RATE: regular rate RHYTHM: regular rhythm GI: COMMON NORMALS: Normal to inspection, nondistended, normoactive bowel sounds present Extremity: COMMON NORMALS: no pedal edema Neuro: DOYLE COMA SCALE: document GCS findings Doyle coma scale eye opening: Spontaneous Doyle coma scale verbal response: Orientated Doyle coma scale motor response: Obey commands Doyle coma scale total score: 15 SENSORY EXAM: Yes extremities (intact) Psych: COMMON NORMALS: speech normal SPEECH: Yes normal speech Skin: COMMON NORMALS: no rashes or lesions noted GENERAL SKIN EXAM: no rashes or lesions noted Course Vital Signs: Vital signs: Vital Signs Temperature 97.6 F 04/06/24 17:59 Pulse Rate 84 04/06/24 20:21 Respiratory Rate 19 H 04/06/24 20:21 Blood Pressure 106/57 04/06/24 20:21 Pulse Oximetry 93 04/06/24 20:21 Oxygen Delivery Me thod Room Air 04/06/24 19:15 MDM - Headache Medical Decision Making Patient is stable. He is afebrile. Vitals are normal. CBC is normal. BMP is normal. Urinalysis shows nitrate positive urinary tract infection consistent with his symptoms. He is treated with fluids, antibiotics. He will continue antibiotics at home. Return for worsening. Lab Data 04/06/24 18:36 04/06/24 18:36 Laboratory Results WBC 6.63 10^3/uL (3.29-11.43) 04/06/24 18:36 RBC 3.91 10^6/uL (3.85-5.65) 04/06/24 18:36 Hgb 12.00 g/dL (11.27-16.99) 04/06/24 18:36 Hct 37.3 % (37-53) 04/06/24 18:36 MCV 95.4 fl (82-101) 04/06/24 18:36 MCH 30.7 pg (27-33) 04/06/24 18:36 MCHC 32.2 g/dL (30-55) 04/06/24 18:36 RDW 13.3 % (12.1-15.1) 04/06/24 18:36 Plt Count 173 10^3/cmm (157-399) 04/06/24 18:36 MPV 9.4 fL (7.4-10.4) 04/06/24 18:36 Neut % (Auto) 69.7 % 04/06/24 18:36 Lymph % (Auto) 16.3 % 04/06/24 18:36 Liberty % (Auto) 9.7 % 04/06/24 18:36 Eos % (Auto) 3.6 % 04/06/24 18:36 Baso % (Auto) 0.5 % 04/06/24 18:36 Neut # (Auto) 4.63 10^3/uL (1.8-7.7) 04/06/24 18:36 Lymph # (Auto) 1.1 10^3/uL (0.8-4.8) 04/06/24 18:36 [place] # (Auto) 0.6 10^3/uL (0.2-0.9) 04/06/24 18:36 Eos # (Auto) 0.2 10^3/uL (0.0-0.8) 04/06/24 18:36 Baso # (Auto) 0.0 10^3/uL (0.0-0.1) 04/06/24 18:36 Nucleated RBC % (auto) 0 % 04/06/24 18:36 Nucleated RBCs # 0.0 /100WBC 04/06/24 18:36 Sodium 138 mmol/L (136-145) 04/06/24 18:36 Potassium 3.9 mmol/L (3.5-5.1) 04/06/24 18:36 Chloride 103 mmol/L (98-107) 04/06/24 18:36 Carbon Dioxide 26 mmol/L (22-29) 04/06/24 18:36 Anion Gap 12.9 (5-19) 04/06/24 18:36 BUN 18 mg/dL (6-20) 04/06/24 18:36 Creatinine 1.0 mg/dL (0.7-1.2) 04/06/24 18:36 GFR Calculation 78.2 mL/min (90-130) L 04/06/24 18:36 Glucose 107 mg/dL (65-115) 04/06/24 18:36 Calculated Osmolality 288 mOsm/kg (285-295) 04/06/24 18:36 Lactic Acid 0.7 mmol/L (0.5-2.2) 04/06/24 18:36 Calcium 9.2 mg/dL (8.5-10.5) 04/06/24 18:36 Total Bilirubin 0.2 mg/dL (0.15-1.2) 04/06/24 18:36 AST 14 U/L (0-40) 04/06/24 18:36 ALT 13 U/L (0-41) 04/06/24 18:36 Alkaline Phosphatase 168 U/L (40-130) H 04/06/24 18:36 C-Reactive Protein 39.0 mg/L (0.0-4.9) H 04/06/24 18:36 Total Protein 7.1 g/dL (6.6-8.7) 04/06/24 18:36 Albumin 3.6 g/dL (3.5-5.2) 04/06/24 18:36 Globulin 3.5 g/dL (1.3-4.6) 04/06/24 18:36 Urine Color Yellow (Yellow) 04/06/24 18:00 Urine Appearance Cloudy (CLEAR) A 04/06/24 18:00 Urine pH 8 (5-7) H 04/06/24 18:00 Ur Specific [place] 1.005 (1.005-1.030) 04/06/24 18:00 Urine Protein Neg (Negative) 04/06/24 18:00 Urine Glucose (UA) Norm (Normal) 04/06/24 18:00 Urine Ketones 1+ (Negative) H 04/06/24 18:00 Urine Blood Neg (Negative) 04/06/24 18:00 Urine Nitrate Positive (Negative) A 04/06/24 18:00 Urine Bilirubin Neg (Negative) 04/06/24 18:00 Urine Urobilinogen Neg mg/dL (Negative) 04/06/24 18:00 Ur Leukocyte Esterase Negative (Negative) 04/06/24 18:00 Urine RBC 0-4 /hpf (0-2) H 04/06/24 18:00 Urine WBC 15-25 /hpf (0-5) H 04/06/24 18:00 Ur Squamous Epith Cells 0-4 /hpf (0-5) H 04/06/24 18:00 Triple Phos Crystals 5-10 /hpf H 04/06/24 18:00 Amorphous Sediment 1+ /hpf 04/06/24 18:00 Urine Bacteria 3+ /hpf (NONE) H 04/06/24 18:00 Hyaline Casts 0-4 /lpf H 04/06/24 18:00 Ethyl Alcohol < 10 mg/dL (0-10) 04/06/24 18:36 All radiology interpretation(s) finalized by discharge Discharge Plan Discharge Patient Disposition: Home Clinical Impression: Acute UTI Condition: Stable Prescriptions: New ciprofloxacin HCl 500 mg tablet 500 mg PO BID Qty: 14 0RF No Action tamsulosin 0.4 mg capsule 0.4 mg PO DAILY loratadine [Allergy Relief (loratadine)] 10 mg tablet 10 mg PO DAILY aripiprazole 30 mg tablet See Rx Instructions .ROUTE .COMPLEX Qty: 30 12RF Dose Instruction: TAKE 1 TABLET BY MOUTH EVERY DAY AT BEDTIME Rx Instructions: TAKE 1 TABLET BY MOUTH EVERY DAY AT BEDTIME Durolane 60 mg/3 mL syringe 60 mg intra-articular ONCE Qty: 3 0RF nystatin 100,000 unit/gram powder 1 applic topical DAILY PRN (Reason: Skin Irritation) isosorbide mononitrate 30 mg tablet extended release 24 hr 15 mg PO BID Qty: 90 3RF zonisamide 100 mg capsule See Rx Instructions .ROUTE .COMPLEX Qty: 90 11RF Dose Instruction: TAKE 3 CAPSULES BY MOUTH EVERY NIGHT AT BEDTIME Rx Instructions: TAKE 3 CAPSULES BY MOUTH EVERY NIGHT AT BEDTIME fluticasone propion-salmeterol [Advair HFA] 115-21 mcg/actuation HFA aerosol inhaler 2 puff inhalation BID Qty: 12 6RF atorvastatin 20 mg tablet See Rx Instructions .ROUTE .COMPLEX Qty: 90 2RF Dose Instruction: TAKE 1 TABLET BY MOUTH EVERY BEDTIME Rx Instructions: TAKE 1 TABLET BY MOUTH EVERY BEDTIME fluoxetine 40 mg capsule See Rx Instructions .ROUTE .COMPLEX Qty: 60 8RF Dose Instruction: TAKE 2 CAPSULES BY MOUTH EVERY DAY Rx Instructions: TAKE 2 CAPSULES BY MOUTH EVERY DAY modafinil [Provigil] 200 mg tablet 200 mg PO QAM Qty: 90 1RF albuterol sulfate [ProAir HFA] 90 mcg/actuation HFA aerosol inhaler 2 puff inhalation Q6H PRN (Reason: Shortness Of Breath) Qty: 8.5 3RF pantoprazole 40 mg tablet,delayed release (DR/EC) 40 mg PO DAILY Symbicort 80-4.5 mcg/actuation HFA aerosol inhaler 1 inh INHALATION BID ipratropium-albuterol 0.5 mg-3 mg(2.5 mg base)/3 mL solution for nebulization 3 ml INHALATION QID PRN (Reason: Shortness Of Breath) furosemide 20 mg tablet 40 mg PO BID PRN (Reason: Edema) Qty: 1 0RF Rx Instructions: Change to PRN only potassium chloride 20 mEq tablet extended release 10 meq PO DAILY PRN (Reason: With Lasix) Qty: 90 3RF terbinafine HCl 1 % Cream 1 applic topical BID 14 Days Qty: 30 1RF Discharge Orders: Discharge ED (Routine); Ordered 04/06/24 Ordered By: Vicente Salomon Referrals: Francesco Grady MD [Primary Care Provider] - 1-3 days Patient Instructions: Urinary Tract Infection in Men (ED), Opioid Safety, Pain Management Activity Restrictions/Additional Instructions: Antibiotics as directed. Plenty of fluids for the next 48 hours. Return for worsening symptoms despite treatment. See your doctor next week. 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
[2024-04-06 18:41] LABS: Basophils % 0.5 %; Eosinophils # 0.2 10^3/uL (0.0-0.8); Eosinophils % 3.6 %; Hematocrit 37.3 % (37-53); Lymphocytes # 1.1 10^3/uL (0.8-4.8); Lymphocytes % 16.3 %; Mean Corpuscular HGB Conc 32.2 g/dL (30-55); Mean Corpuscular Hemoglobin 30.7 pg (27-33); Mean Corpuscular Volume 95.4 fl (82-101); Mean Platelet Volume 9.4 fL (7.4-10.4); Monocytes # 0.6 10^3/uL (0.2-0.9); Monocytes % 9.7 %; Neutrophils # 4.63 10^3/uL (1.8-7.7); Neutrophils % 69.7 %; Nucleated Red Blood Cells % 0 %; Platelet Count 173 10^3/cmm (157-399); Red Blood Count 3.91 10^6/uL (3.85-5.65); Red Cell Distribution Width 13.3 % (12.1-15.1); White Blood Count 6.63 10^3/uL (3.29-11.43)
[2024-04-06 19:02] LABS: Lactic Sepsis W/Reflex 0.7 mmol/L (0.5-2.2)
[2024-04-06 19:03] LABS: Alanine Aminotransferase 13 U/L (0-41); Albumin Level 3.6 g/dL (3.5-5.2); Alkaline Phosphatase 168 U/L (40-130); Anion Gap 12.9 (5-19); Aspartate Amino Transferase 14 U/L (0-40); Blood Urea Nitrogen 18 mg/dL (6-20); Calcium 9.2 mg/dL (8.5-10.5); Carbon Dioxide 26 mmol/L (22-29); Chloride 103 mmol/L (98-107); Creatinine Clr Calc Pharmacy 161.5866; Globulin 3.5 g/dL (1.3-4.6); Glomerular Filtration Rate 78.2 mL/min (90-130); Glucose 107 mg/dL (65-115); Osmolality Calculated 288 mOsm/kg (285-295); Potassium 3.9 mmol/L (3.5-5.1); Sodium 138 mmol/L (136-145); Total Bilirubin 0.2 mg/dL (0.15-1.2); Total Protein 7.1 g/dL (6.6-8.7)
[2024-04-06 19:04] LABS: Alcohol Level < 10 mg/dL (0-10)
[2024-04-06 19:09] LABS: Add Urine Microscopic? YES; Bacteria Urine 3+ /hpf; Bilirubin Urine Neg (Negative); Blood Urine Neg (Negative); Glucose Urine UA Norm (Normal); Ketones Urine 1+ (Negative); Leukocyte Esterase Urine Negative (Negative); Nitrate Urine Positive (Negative); Protein Urine Neg (Negative); RBC Urine 0-4 /hpf (0-2); Specific Gravity, Urine 1.005 (1.005-1.030); Squamous Epithelial Cell Urine 0-4 /hpf (0-5); Urine Appearance Cloudy (CLEAR); Urine Color Yellow (Yellow); Urobilinogen Urine Neg (Negative); WBC Urine 15-25 /hpf (0-5); pH Urine 8 (5-7)
[2024-04-06 19:10] LABS: Add Urine Culture? Yes; Amorphous Sediment Urine 1+ /hpf; Hyaline Casts Urine 0-4 /lpf
[2024-04-06] MEDS: sodium chloride 0.9% 1,000 ML 999 ML IV (19:11)
[2024-04-06] MEDS: ondansetron 2 mg/ML SDV 2 mL 4 MG IVP (19:12)
[2024-04-06 19:14] VITALS: RESP 20; O2SAT 97
[2024-04-06] MEDS: morphine 4 mg/mL SDV 1 mL IVP (19:14)
[2024-04-06 19:15] VITALS: BP 116/70; PULSE 92; RESP 20; O2SAT 97
[2024-04-06] MEDS: cefTRIAXone 1,000 mg SDV 1000 MG IVP (20:04)
[2024-04-06 20:21] VITALS: BP 106/57; PULSE 84; RESP 19; O2SAT 93
== END 2024-04-06 20:23 | disposition home or self-care (01) ==
PROVIDERS: Emergency Provider Emergency Medicine; PCP Family Medicine
DX: N39.0 Urinary tract infection, site not specified (principal); I11.0 Hypertensive heart disease with heart failure; I50.9 Heart failure, unspecified; Z87.891 Personal history of nicotine dependence
CPT/HCPCS: 36415; 51798; 80053; 80307; 81001; 83605; 85025; 86140; 87077; 87086; 87186; 96361; 96374; 96375; 99284; J0696; J2270; J2405; J7030

== ENCOUNTER → 2024-04-17 10:00 | Outpatient (BNVA) | payer MEDICARE, MEDICAID, SELFPAY ==
[2022-03-02 14:14] VITALS: BP 126/71; BMI 52.2
== END ==
PROVIDERS: PCP Family Medicine; Visit Provider Specialist
DX: G47.419 Narcolepsy without cataplexy (principal); R29.90 Unspecified symptoms and signs involving the nervous system; G43.019 Migraine without aura, intractable, without status migrainosus
CPT/HCPCS: 99213

== ENCOUNTER → 2024-07-04 15:15 | Outpatient (BNVA) | payer MEDICARE, MEDICAID, SELFPAY ==
[2022-03-02 14:14] VITALS: BP 126/71; BMI 52.2
== END ==
PROVIDERS: PCP Family Medicine; Visit Provider Internal Medicine
DX: I11.0 Hypertensive heart disease with heart failure (principal); I50.9 Heart failure, unspecified; E66.01 Morbid (severe) obesity due to excess calories; Z68.43 Body mass index [BMI] 50.0-59.9, adult
CPT/HCPCS: 99214

== ENCOUNTER → 2024-07-25 09:03 | Outpatient (BNVA) | payer MEDICARE, MEDICAID, SELFPAY ==
[2022-03-02 14:14] VITALS: BP 126/71; BMI 52.2
== END ==
PROVIDERS: PCP Family Medicine; Visit Provider Student in an Organized Health Care Education/Training Program
DX: M17.12 Unilateral primary osteoarthritis, left knee (principal); Z71.89 Other specified counseling
CPT/HCPCS: 20610; 99213

== ENCOUNTER 2024-08-04 14:24 | Emergency (ER) | payer MEDICARE, MEDICAID, SELFPAY ==
[2022-03-02 14:14] VITALS: BP 126/71; BMI 52.2
[2024-08-04] VITALS (40 sets, daily range): BP systolic 116–157; BP diastolic 66–107; PULSE 61–88; RESP 11–24; TEMP 36.8; O2SAT 92–98; BMI 53.5
--- NOTE | 2024-08-04 14:49 | XRR_ITS ---
PROCEDURE INFORMATION: Exam: XR Chest Exam date and time: 08/04/2024 3:18 PM Age: 54 years old Clinical indication: Shortness of breath; Dizziness; Weakness TECHNIQUE: Imaging protocol: Radiologic exam of the chest. Views: 1 view. COMPARISON: CR XR chest 1V portable [id number] 03/21/2024 3:07 PM FINDINGS: Lungs: Unremarkable. No consolidation. Pleural spaces: Unremarkable. No pleural effusion. No pneumothorax. Heart/Mediastinum: Unremarkable. No cardiomegaly. Diaphragm: There is elevation of the right hemidiaphragm similar to the prior study. Bones/joints: Unremarkable. XR/XR chest 1V portable [id number] IMPRESSION: No acute findings.
--- NOTE | 2024-08-04 14:51 | ED_ITS ---
HPI - Weakness 2 General: Chief complaint: Weakness Stated complaint: SOB Time Seen by Provider: 08/04/24 14:33 Source: patient Mode of arrival: EMS Limitations: no limitations History of Present Illness: This patient came to emergency department today via EMS. He comes from his home. He states that today he picked up 2 large bags of trash and were taking it down the road to his trash dumpster and felt weak and short of breath on his way down there. He stopped and turned back to his house and sat down. 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 At no time did he experience any chest pain. He states he has a history of congestive heart failure and has been taking his medication although he does not take a daily diuretic. He does not have a history of having had an KS in the past. He denies any fevers or chills or other constitutional complaints. MD Complaint: generalized weakness Associated symptoms: Denies chest pain, chills, dysuria, fever(s), headache(s), nausea, syncope or vomiting Review of Systems 2 Const: Denies: fever(s) or chills ENMT: Denies: throat pain, odynophagia, nasal discharge or nasal congestion Card: Reports: lightheadedness; Denies: chest pain, palpitations, syncope or pre-syncope Resp: Reports: dyspnea; Denies: productive cough, non-productive cough or wheezing GI: Denies: abdominal pain, nausea, vomiting or hematemesis : Denies: difficulty urinating, dysuria or urinary frequency Musc: Reports: extremity swelling; Denies: back pain or extremity pain Skin/Breast: Denies: rash or pruritus Neuro: Denies: headache(s), numbness in extremities or weakness in extremities Endo: Denies: polyuria or polydipsia PFSH ED 2 PFSH: Medical History Intellectual delay MDD (major depressive disorder) Psychiatric care Essential hypertension CHF (congestive heart failure) FABIEN (obstructive sleep apnea) GERD (gastroesophageal reflux disease) Family History Other Cancer Hypertension Social History Smoking and tobacco/nicotine status: never used tobacco/nicotine Quit status (tobacco/nicotine): has quit using Year quit tobacco: 2021 Chewing tobacco Former quit date comment: about a month ago Second hand smoke exposure: Yes Alcohol intake: current Alcohol intake frequency: holidays/special occasions only Substance/Drug Use: former Adopted: No Caregiver/support person: Yes (every Monday to set up meds and a school speech language pathologist that cleans daily) Lives independently: Yes Household members: none Housing: Apartment Marital status: Single Number of children: 0 Number of grandchildren: 0 Highest education level completed: Some College, No Degree service: No Current occupational status: disabled Pets and animals: Yes (rod mora) Pets & animals: cat(s) Leisure activites: music, games and other Leisure activities details: loves to cook Sexually active: No Do you think of yourself as: Straight/Heterosexual Current gender identity: Male Alexandrea/Nondenominational: Anabaptism Special alexandrea needs: No Agree to transfusion: Yes Physical Exam 2 Narrative: EXAM NARRATIVE: The patient is alert makes good eye contact answers questions and appropriate goal-directed voice. Const: COMMON NORMALS: no acute distress, patient oriented x3 and alert G ENERAL APPEARANCE: cooperative NUTRITIONAL APPEARANCE: obese HENMT: COMMON NORMALS: normocephalic, Normal nasal mucous membranes and turbinates present, moist oral mucous membranes and oropharynx normal HEAD & SCALP: normocephalic NOSE: Normal nasal mucous membranes and turbinates present Eye: COMMON NORMALS: Equal, round and reactive pupils present, conjunctivae normal and no scleral icterus CONJUNCTIVA: Yes conjunctivae normal PUPIL: Yes Equal, round and reactive pupils present Neck/C-Spine: COMMON NORMALS: full ROM, no JVD, Thyroid normal and No carotid bruits THYROID: Thyroid normal Chest: COMMONS NORMALS: normal inspection of the chest and normal palpation of entire chest wall Resp: COMMON NORMALS: normal respiratory effort, No use of accessory muscles and clear to auscultation bilaterally EFFORT & INSPECTION: Yes able to speak in complete sentences AUSCULTATION: clear to auscultation bilaterally Cardio: COMMON NORMALS: no JVD, regular rate, regular rhythm, No murmurs present (Cardio) and Peripheral pulses 2+ throughout RATE: regular rate R HYTHM: regular rhythm PERIPHERAL PULSES: Peripheral pulses 2+ throughout GI: COMMON NORMALS: Normal to inspection, nondistended, normoactive bowel sounds present, Soft to palpation and non-tender INSPECTION: Yes central obesity PALPATION: Yes Soft to palpation : COMMON NORMALS: Yes no CVA tenderness BLADDER/KIDNEY EXAM: Yes no CVA tenderness Back/Pelvis: COMMON NORMALS: no CVA tenderness, thoracic and lumbar spine normal to inspection and no thoracic nor lumbar tenderness Extremity: COMMON NORMALS: normal to inspection, full ROM and capillary refill normal NARRATIVE EXTREMITY EXAM: He has bilateral lower extremity edema. No calf tenderness noted. Neuro: COMMON NORMALS: patient oriented x3, moves all extremities, no focal motor deficits and no sensory deficits noted SENSORIUM/ORIENTATION: Yes alert Psych: COMMON NORMALS: mental status grossly normal Skin: COMMON NORMALS: no rashes or lesions noted and turgor normal GENERAL SKIN EXAM: no rashes or lesions noted and turgor normal Course 2 Reevaluation(s): Reevaluation #1: Patient's labs are reassuring. No evidence at this time to suggest a ongoing emergency medical condition. Discussed current findings with the patient. No evidence to suggest an exacerbation of heart failure either clinically or radiographically or chemically at this time. He does have chronic cardiomegaly is 1 expect but his cardiac silhouette reflects his body habitus as well. Given the patient's clinical appearance and body habitus I am sure that he is very deconditioned as well. Again no evidence at this time that additional interventions necessary in the emergency department. Time: 16:50 Vital Signs: Vital signs: Vital Signs Temperature 98.2 F 08/04/24 14:27 Pulse Rate 61 08/04/24 16:10 Respiratory Rate 12 08/04/24 16:10 Blood Pressure 116/66 08/04/24 16:10 Pulse Oximetry 96 08/04/24 16:10 Oxygen Delivery Me thod Room Air 08/04/24 14:27 MDM - Weakness Medical Decision Making This patient presented from his domicile by EMS as noted in the history of present illness. Evaluation here revealed him to be very stable with normal vital signs no evidence of hypoxia tachycardia etc. Clear chest and a normal cardiovascular exam. Ancillary studies were obtained to ensure no evidence of heart failure or arrhythmia pneumonia etc. All those findings were reassuring at this time with his BNP being very normal. At this point there is no evidence of an ongoing emergency medical condition I think the patient's body habitus and deconditioning state likely contributed to his presentation. This was all reviewed with the patient who voiced understanding. Stable for discharge with outpatient follow-up and return precautions Medical Records I reviewed the patient's medical records. Previous x-ray was reviewed showed similar appearance to the x-ray obtained today. Lab Data I reviewed the patient's lab results. 08/04/24 15:04 08/04/24 15:04 Radiology Impressions Chest X-Ray 08/04/24 14:49 IMPRESSION: No acute findings. Laboratory Results WBC 5.45 10^3/uL (3.29-11.43) 08/04/24 15:04 RBC 4.64 10^6/uL (3.85-5.65) 08/04/24 15:04 Hgb 13.50 g/dL (11.27-16.99) 08/04/24 15:04 Hct 43.1 % (37-53) 08/04/24 15:04 MCV 92.9 fl (82-101) 08/04/24 15:04 MCH 29.1 pg (27-33) 08/04/24 15:04 MCHC 31.3 g/dL (30-55) 08/04/24 15:04 RDW 15.6 % (12.1-15.1) H 08/04/24 15:04 Plt Count 187 10^3/cmm (157-399) 08/04/24 15:04 MPV 9.8 fL (7.4-10.4) 08/04/24 15:04 Neut % (Auto) 68.5 % 08/04/24 15:04 Lymph % (Auto) 22.2 % 08/04/24 15:04 Patrick % (Auto) 7.7 % 08/04/24 15:04 Eos % (Auto) 0.7 % 08/04/24 15:04 Baso % (Auto) 0.7 % 08/04/24 15:04 Neut # (Auto) 3.73 10^3/uL (1.8-7.7) 08/04/24 15:04 Lymph # (Auto) 1.2 10^3/uL (0.8-4.8) 08/04/24 15:04 Patrick # (Auto) 0.4 10^3/uL (0.2-0.9) 08/04/24 15:04 Eos # (Auto) 0.0 10^3/uL (0.0-0.8) 08/04/24 15:04 Baso # (Auto) 0.0 10^3/uL (0.0-0.1) 08/04/24 15:04 Nucleated RBC % (auto) 0 % 08/04/24 15:04 Nucleated RBCs # 0.0 /100WBC 08/04/24 15:04 Sodium 140 mmol/L (136-145) 08/04/24 15:04 Potassium 3.7 mmol/L (3.5-5.1) 08/04/24 15:04 Chloride 104 mmol/L (98-107) 08/04/24 15:04 Carbon Dioxide 24 mmol/L (22-29) 08/04/24 15:04 Anion Gap 15.7 (5-19) 08/04/24 15:04 BUN 17 mg/dL (6-20) 08/04/24 15:04 Creatinine 0.9 mg/dL (0.7-1.2) 08/04/24 15:04 GFR Calculation 87.9 mL/min (90-130) L 08/04/24 15:04 Glucose 107 mg/dL (65-115) 08/04/24 15:04 Calculated Osmolality 292 mOsm/kg (285-295) 08/04/24 15:04 Calcium 8.9 mg/dL (8.5-10.5) 08/04/24 15:04 Magnesium 1.8 mg/dL (1.7-2.3) 08/04/24 15:04 Total Bilirubin 0.3 mg/dL (0.15-1.2) 08/04/24 15:04 AST 20 U/L (0-40) 08/04/24 15:04 ALT 19 U/L (0-41) 08/04/24 15:04 Alkaline Phosphatase 193 U/L (40-130) H 08/04/24 15:04 NT-Pro-B Natriuret Pep 66 pg/mL (0-125) 08/04/24 15:04 Total Protein 7.5 g/dL (6.6-8.7) 08/04/24 15:04 Albumin 3.8 g/dL (3.5-5.2) 08/04/24 15:04 Globulin 3.7 g/dL (1.3-4.6) 08/04/24 15:04 All radiology interpretation(s) finalized by discharge Discharge Plan Discharge Patient Disposition: Home Clinical Impression: Morbid obesity, Dependent edema Condition: Stable Prescriptions: No Action tamsulosin 0.4 mg capsule 0.4 mg PO DAILY loratadine [Allergy Relief (loratadine)] 10 mg tablet 10 mg PO DAILY aripiprazole 30 mg tablet See Rx Instructions .ROUTE .COMPLEX Qty: 30 12RF Dose Instruction: TAKE 1 TABLET BY MOUTH EVERY DAY AT BEDTIME Rx Instructions: TAKE 1 TABLET BY MOUTH EVERY DAY AT BEDTIME Durolane 60 mg/3 mL syringe 60 mg intra-articular ONCE Qty: 3 0RF nystatin 100,000 unit/gram powder 1 applic topical DAILY PRN (Reason: Skin Irritation) furosemide 20 mg tablet 40 mg PO BID PRN (Reason: Edema) Qty: 180 3RF sumatriptan succinate [Imitrex] 100 mg tablet See Rx Instructions PO .COMPLEX Qty: 10 4RF Rx Instructions: take 1 as soon as the headache starts. repeat in 1 hour if needed zonisamide 100 mg capsule See Rx Instructions .ROUTE .COMPLEX Qty: 300 3RF Dose Instruction: TAKE 3 CAPSULES BY MOUTH EVERY NIGHT AT BEDTIME Rx Instructions: TAKE 3 CAPSULES BY MOUTH EVERY NIGHT AT BEDTIME isosorbide mononitrate 30 mg tablet extended release 24 hr 15 mg PO BID Qty: 90 3RF fluticasone propion-salmeterol [Advair HFA] 115-21 mcg/actuation HFA aerosol inhaler 2 puff inhalation BID Qty: 12 6RF atorvastatin 20 mg tablet See Rx Instructions .ROUTE .COMPLEX Qty: 90 2RF Dose Instruction: TAKE 1 TABLET BY MOUTH EVERY BEDTIME Rx Instructions: TAKE 1 TABLET BY MOUTH EVERY BEDTIME fluoxetine 40 mg capsule See Rx Instructions .ROUTE .COMPLEX Qty: 60 8RF Dose Instruction: TAKE 2 CAPSULES BY MOUTH EVERY DAY Rx Instructions: TAKE 2 CAPSULES BY MOUTH EVERY DAY albuterol sulfate [ProAir HFA] 90 mcg/actuation HFA aerosol inhaler 2 puff inhalation Q6H PRN (Reason: Shortness Of Breath) Qty: 8.5 3RF modafinil [Provigil] 200 mg tablet 200 mg PO QAM Qty: 90 1RF pantoprazole 40 mg tablet,delayed release (DR/EC) 40 mg PO DAILY Symbicort 80-4.5 mcg/actuation HFA aerosol inhaler 1 inh INHALATION BID ipratropium-albuterol 0.5 mg-3 mg(2.5 mg base)/3 mL solution for nebulization 3 ml INHALATION QID PRN (Reason: Shortness Of Breath) potassium chloride 20 mEq tablet extended release 10 meq PO DAILY PRN (Reason: With Lasix) Qty: 90 3RF terbinafine HCl 1 % Cream 1 applic topical BID 14 Days Qty: 30 1RF ciprofloxacin HCl 500 mg tablet 500 mg PO BID Qty: 14 0RF Discharge Orders: Discharge ED (Routine); Ordered 08/04/24 Ordered By: Chucky Crockett Referrals: Francesco Grady MD [Primary Care Provider] - Discharge Diet: Usual diet and Low Salt Discharge Activity: Increase activity as tolerated Patient Instructions: Opioid Safety, Pain Management Activity Restrictions/Additional Instructions: Do not have any evidence during your emergency department visit this evening is suggest a serious cause of your symptoms. You do not have any evidence of exacerbation of your chronic congestive heart failure today. You do have chronic lower leg swelling and this is likely due to being dependent meaning your feet and legs hanging down when you are sitting or not active. We recommend using knee-high support hose as well as gradually increasing your activity levels to help build up your tolerance to activity. Follow-up with your regular doctor in 2 weeks or if you have any recurrent or worsening symptoms you are welcome to return to the emergency department at any time. Coding Level of Care Code ED Service Supervisor for Chg Fwd Related Data Home Medications Medication Instructions Recorded Confirmed loratadine 10 mg tablet (Allergy 10 mg PO DAILY 07/30/20 07/30/24 Relief (loratadine)) tamsulosin 0.4 mg capsule 0.4 mg PO DAILY 07/30/20 07/30/24 nystatin 100,000 unit/gram topical 1 applic topical DAILY PRN Skin 10/25/23 07/30/24 powder Irritation budesonide-formoterol HFA 80 1 inh inhalation BID 03/22/24 07/30/24 mcg-4.5 mcg/actuation aerosol inhaler (Symbicort) ipratropium 0.5 mg-albuterol 3 mg 3 ml inhalation QID PRN Shortness 03/22/24 07/30/24 (2.5 mg base)/3 mL nebulization Of Breath soln pantoprazole 40 mg tablet,delayed 40 mg PO DAILY 03/22/24 07/30/24 release Previous Rx's Medication Instructions Recorded isosorbide mononitrate 30 mg 15 mg (1/2 x 30 mg) PO BID #90 tabs 06/21/23 tablet,extended release 24 hr hyaluronate sodium, stabilized 60 60 mg (3 mL) intra-articular ONCE 10/13/23 mg/3 mL intra-articular syringe #3 mL (Durolane) aripiprazole 30 mg tablet See Rx Instructions .Route 11/23/23 .COMPLEX #30 tabs fluticasone propionate 115 2 puff inhalation BID #12 grams 11/28/23 mcg-salmeterol 21 mcg/actuation HFA inhaler (Advair HFA) atorvastatin 20 mg tablet See Rx Instructions .Route 02/06/24 .COMPLEX #90 tabs fluoxetine 40 mg capsule See Rx Instructions .Route 02/26/24 .COMPLEX #60 caps albuterol sulfate 90 mcg/actuation 2 puff inhalation Q6H PRN 03/06/24 aerosol inhaler (ProAir HFA) Shortness Of Breath #8.5 grams potassium chloride 20 mEq 10 meq (1/2 x 20 mEq) PO DAILY PRN 03/23/24 tablet,extended release With Lasix #90 tabs terbinafine HCl 1 % topical cream 1 applic topical BID 14 days #30 03/23/24 grams ciprofloxacin HCl 500 mg tablet 500 mg PO BID #14 tabs 04/06/24 sumatriptan succinate 100 mg See Rx Instructions PO .COMPLEX 04/17/24 tablet (Imitrex) #10 tabs zonisamide 100 mg capsule See Rx Instructions .Route 04/17/24 .COMPLEX #300 caps modafinil 200 mg tablet (Provigil) 200 mg PO QAM #90 tabs 05/28/24 furosemide 20 mg tablet 40 mg (2 x 20 mg) PO BID PRN Edema 07/04/24 #180 tabs Allergies Allergy/AdvReac Type Severity Reaction Status Date / Time diphenhydramine Allergy Unknown ALGY-Rash Verified 07/25/24 09:22 [From Benadryl] Sulfa (Sulfonamide Allergy Unknown Unknown Verified 07/25/24 09:22 Antibiotics)
--- NOTE | 2024-08-04 14:56 | ECG_ITS ---
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 Measurements Intervals [place] Rate: 64 P: 10 MD: 184 QRS: -11 QRSD: 100 T: 18 QT: 419 QTc: 435 Interpretive Statements SINUS RHYTHM LOW QRS VOLTAGE IN PRECORDIAL LEADS [QRS DEFLECTION < 1.0 mV IN CHEST LEADS] POSSIBLE RIGHT VENTRICULAR CONDUCTION DELAY [RSR (QR) IN V1/V2] MODERATE VOLTAGE CRITERIA FOR LVH, CONSIDER NORMAL VARIANT [MEETS CRITERIA IN ONE OF: R(aVL), S(V1), R(V5), R(V5/V6)+S(V1)] POSSIBLE ANTERIOR MYOCARDIAL INFARCTION , PROBABLY OLD [30 ms Q WAVE IN V3/V4, OR R < 0.2 mV IN V4] Compared to ECG 03/21/2024 21:01:38 No significant changes Electronically Signed On 08-08-2024 21:45:01 PINION SORTER by Jing Crockett M.D. [id number]
[2024-08-04 15:11] LABS: Basophils % 0.7 %; Eosinophils % 0.7 %; Hematocrit 43.1 % (37-53); Lymphocytes # 1.2 10^3/uL (0.8-4.8); Lymphocytes % 22.2 %; Mean Corpuscular HGB Conc 31.3 g/dL (30-55); Mean Corpuscular Hemoglobin 29.1 pg (27-33); Mean Corpuscular Volume 92.9 fl (82-101); Mean Platelet Volume 9.8 fL (7.4-10.4); Monocytes # 0.4 10^3/uL (0.2-0.9); Monocytes % 7.7 %; Neutrophils # 3.73 10^3/uL (1.8-7.7); Neutrophils % 68.5 %; Nucleated Red Blood Cells % 0 %; Platelet Count 187 10^3/cmm (157-399); Red Blood Count 4.64 10^6/uL (3.85-5.65); Red Cell Distribution Width 15.6 % (12.1-15.1); White Blood Count 5.45 10^3/uL (3.29-11.43)
[2024-08-04 15:36] LABS: Alanine Aminotransferase 19 U/L (0-41); Albumin Level 3.8 g/dL (3.5-5.2); Alkaline Phosphatase 193 U/L (40-130); Anion Gap 15.7 (5-19); Aspartate Amino Transferase 20 U/L (0-40); Blood Urea Nitrogen 17 mg/dL (6-20); Calcium 8.9 mg/dL (8.5-10.5); Carbon Dioxide 24 mmol/L (22-29); Chloride 104 mmol/L (98-107); Creatinine Clr Calc Pharmacy 175.0689; Globulin 3.7 g/dL (1.3-4.6); Glomerular Filtration Rate 87.9 mL/min (90-130); Glucose 107 mg/dL (65-115); Magnesium 1.8 mg/dL (1.7-2.3); NT Pro B Type Natriuretic Pept 66 pg/mL (0-125); Osmolality Calculated 292 mOsm/kg (285-295); Potassium 3.7 mmol/L (3.5-5.1); Sodium 140 mmol/L (136-145); Total Bilirubin 0.3 mg/dL (0.15-1.2); Total Protein 7.5 g/dL (6.6-8.7)
== END 2024-08-04 17:55 | disposition home or self-care (01) ==
PROVIDERS: Emergency Provider Emergency Medicine; PCP Family Medicine
DX: E66.01 Morbid (severe) obesity due to excess calories (principal); R60.9 Edema, unspecified; Z87.891 Personal history of nicotine dependence; I11.0 Hypertensive heart disease with heart failure; I50.9 Heart failure, unspecified
CPT/HCPCS: 71045; 80053; 83735; 83880; 85025; 93005; 99285

== ENCOUNTER 2025-03-21 18:39 | Emergency (ER) | payer MEDICARE, MEDICAID, SELFPAY ==
[2022-03-02 14:14] VITALS: BP 126/71; BMI 52.2
[2025-03-21] VITALS (7 sets, daily range): BP systolic 117–158; BP diastolic 61–99; PULSE 71–82; RESP 16–22; TEMP 36.3; O2SAT 90–95; BMI 48.9
--- NOTE | 2025-03-21 18:48 | ECG_ITS ---
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 Measurements Intervals [place] Rate: 79 P: 10 MA: 186 QRS: -19 QRSD: 114 T: 22 QT: 391 QTc: 448 Interpretive Statements SINUS RHYTHM MODERATE VOLTAGE CRITERIA FOR LVH, CONSIDER NORMAL VARIANT [MEETS CRITERIA IN ONE OF: R(aVL), S(V1), R(V5), R(V5/V6)+S(V1)] POSSIBLE ANTERIOR MYOCARDIAL INFARCTION , PROBABLY OLD [30 ms Q WAVE IN V3/V4, OR R < 0.2 mV IN V4] Compared to ECG 08/04/2024 14:56:40 No significant changes Electronically Signed On 03-27-2025 09:18:12 CDT by Tyson Gonzales M.D. [id number]
--- NOTE | 2025-03-21 18:48 | XRR_ITS ---
PROCEDURE INFORMATION: Exam: XR Chest Exam date and time: 03/21/2025 6:58 PM Age: 54 years old Clinical indication: Pain; Chest pressure; Additional info: Cp TECHNIQUE: Imaging protocol: Radiologic exam of the chest. Views: 1 view. COMPARISON: CR XR chest 1V portable [id number] 08/04/2024 3:18 PM FINDINGS: Lungs: Unremarkable. No consolidation. Pleural spaces: Unremarkable. No pleural effusion. No pneumothorax. Heart/Mediastinum: Unremarkable. No cardiomegaly. Diaphragm: Persistent asymmetric elevation of the right hemidiaphragm. Bones/joints: Unremarkable. XR/XR chest 1V portable [id number] IMPRESSION: No acute cardiopulmonary process.
--- OUTSIDE RECORDS SUMMARY | 2025-03-21 18:52 | XMS_ITS | Encounter Summary ---
Author Organization [facility] Address [address] [place] [address] Care Team Providers Care Photographic Reproduction Technician Name Role Phone Brian Chaves MD Primary Care Provider [phone] Encounter Details Date Type Department Care Team (Late st Contact Info) Description 03/18/2025 External Device Data [place] ABSTRACTION Provider, Abstract NO ADDRESS ON FILE Social History Tobacco Use Types Packs/Day Years Used Date Smoking Tobacco: Never Smokeless Tobacco: Former Alcohol Use Standard Drinks/Week Comments Yes 0 (1 standard drink = 0.6 oz pur e alcohol) Sex and Gender Information Value Date Recorded Sex Assigned at Not on file 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 Gender Identity Not on file Sexual Orientation Not on file documented as of this encounter Plan of Treatment Not on file documented as of this encounter Visit Diagnoses Not on filedocumented in this encounter Additional Health Concerns Infection Onset Date Last Indicated Resolved Time MRSA Comment:Rt knee wound 01/01/19 01/01/2019 01/02/2019 Assessment Noted Time PHQ-9 Depression Total Score: 3 02/29/20 18 1:00 PM CDT documented as of this encounter Care Teams Photographic Reproduction Technician Relationship Specialty Start Date End Date Brian Chaves MD [address] [place] [address] PCP - General Family Practice 06/04/20 documented as of this encounter
--- OUTSIDE RECORDS SUMMARY | 2025-03-21 18:52 | XMS_ITS | Clinical Summary ---
Author Organization [facility] Address [address] [place] [phone] Care Team Providers Care Delivery Supervisor Name Role Phone Brian Chaves MD Primary Care Provider [phone] Allergies Active Allergy Reactions Criticality Noted Date Comments Diphenhydramine Hcl Rash High 03/09/2017 Sulfa (Sulfonamide Antibiotics) Rash Low 02/23 Medications FLUoxetine (PROzac) 40 mg capsuleIndication s:Recurrent major depressive disorder, in partial remission Take 1 Capsule (40 mg) by mouth daily. 30 Capsule 5 9 Active ARIPiprazole (ABILIFY) 15 mg tabletIndications :Recurrent major depressive disorder, in partial remission Take 1 Tablet (15 mg) by mouth daily at bedtime. 30 Tablet 5 9 Active ipratropium-albut gabe (DUONEB) 0.5 mg-3 mg(2.5 mg base)/3 mL Solution for NebulizationIndic ations:Mild intermittent asthma without complication,SOB (shortness of breath) on exertion,Chronic obstructive pulmonary disease, unspecified COPD type (CMS/HCC) Take 3 mL by inhalation every 12 hours. 60 Each 2 9 Active nebulizerIndicati ons:Chronic obstructive pulmonary disease, unspecified COPD type (CMS/HCC) Length of need 99 months Nebulizer with compressor, Kit: Disposable Nebulizer Kit, 2 per month, filters , areosol mask: No. Name of Medication:duo neb 1 Each 9 Active fluticasone furoate-vilantero l (BREO ELLIPTA) 100-25 mcg/dose Disk with DeviceIndications :Simple chronic bronchitis (CMS/HCC) Take 1 Puff by inhalation daily. 60 Each 2 9 Active loperamide (ANTI-DIARRHEA) 2 mg Tablet Take 1 Tablet (2 mg) by mouth every 4 hours as needed for Diarrhea/Loose Stools. Maximum 8 tablets in 24 hours. 9 Active ibuprofen (MOTRIN) 800 mg tablet TAKE 1 TABLET (800 MG) BY MOUTH EVERY 6 HOURS NEEDED FOR MILD PAIN. 90 Tablet 5 9 Active naproxen (NAPROSYN) 500 mg tablet TAKE ONE (1) TABLET TWICE DAILY WITH MEALS 60 Tablet 2 9 Active loratadine (CLARITIN) 10 mg tabletIndications :Environmental and seasonal allergies TAKE ONE (1) TABLET BY MOUTH DAILY 30 Tablet 5 0 Active oxybutynin chloride (DITROPAN) 5 mg tablet TAKE ONE TABLET BY MOUTH THREE TIMES A DAY BEGIN WITH ONCE DAILY AND MAY TITRATE UP TO THREE TIMES A DAY IF NEEDED 90 Tablet 5 0 Active esomeprazole (NexIUM) 40 mg Capsule, Delayed Release(E.C.) TAKE 1 CAPSULE BY MOUTH DAILY BEFORE BREAKFAST 90 Capsule 5 0 Active furosemide (LASIX) 20 mg tablet TAKE ONE (1) TABLET BY MOUTH DAILY 30 Tablet 5 0 Active Zonisamide (ZONEGRAN) 100 mg capsuleIndication s:Primary narcolepsy without cataplexy TAKE THREE (3) CAPSULES BY MOUTH AT BEDTIME 90 Capsule 5 0 Active sucralfate (CARAFATE) 1 gram tabletIndications :Superficial gastritis, presence of bleeding unspecified, unspecified chronicity TAKE ONE TABLET BY MOUTH FOUR TIMES DAILY BEFORE MEALS AND AT BEDTIME 120 Tablet 2 0 Active tamsulosin (FLOMAX) 0.4 mg capsuleIndication s:Hx of hematuria,Nocturi a,Benign localized prostatic hyperplasia with lower urinary tract symptoms (LUTS),Slow urinary stream,Gross hematuria TAKE 1 CAPSULE (0.4 MG) BY MOUTH DAILY. 90 Capsule 2 0 Active albuterol HFA 90 mcg inhalerIndication s:Wheezing INHALE 2 PUFFS BY MOUTH EVERY 6 HOURS NEEDED FOR SHORTNESS OF BREATH 18 Gram 1 1 Active Active Problems Problem Noted Date Diagnosed Date Mild intellectual disability 03/26/2019 Morbid obesity with BMI of 50.0-59.9, adult 10/26 Peripheral edema 09/27/2018 Obstructive sleep apnea on CPAP 08/03/2018 Primary narcolepsy without cataplexy 11/30/2017 Overview (11/30/2017): Patient states was diagnosed in 1991 Recurrent major depressive disorder, in partial remission 11/30/2017 Irritability and anger 11/30/2017 Mild intermittent asthma without complication Resolved Problems Problem Noted Date Diagnosed Date Resolved Date Class 3 severe obesity due t o excess calories without serious comorbidity with body mass index (BMI) of 40.0 to 44.9 in adult 03/16/201708/2019 Immunizations Immunization Administration Dates Next Due INFLUENZA VACCINE QUADRIVALENT 3 YR UP PF IM 05/2018 Influenza Vaccine Quad Split 5+ Yrs Im 9 Family History Medical History Relation Name Comments Heart Disease Maternal Grandfather Diabetes Mother Lung Cancer Other great grandfath er Stroke Other Great grandfath er Relation Name Status Comments Maternal Grandfather Mother Other Social History Tobacco Use Types Packs/Day Years Used Date Smoking Tobacco: Never Smokeless Tobacco: Former Tobacco Cessation:Counseling Given: No Alcohol Use Standard Drinks/Week Comments Yes 0 (1 standard drink = 0.6 oz pur e alcohol) occasional Sex and Gender Information Value Date Recorded Sex Assigned at Not on file Legal Sex Male 1:45 PM CDT Gender Identity Not on file Sexual Orientation Not on file Last Filed Vital Signs Vital Sign Reading Time Taken Comments Blood Pressure 120/74 06/27/2019 10:49 AM CDT Pulse 72 06/27/2019 10:49 AM CDT Temperature 36.6 C (97.8 F) 06/27/2019 10:49 AM CDT Respiratory Rate 16 06/27/2019 10:4 9 AM CDT Oxygen Saturation 94% 06/27/2019 10: 49 AM CDT Inhaled Oxygen Concentration - - Weight 189.2 kg (417 lb 3.2 oz) 019 10:49 AM CDT Height 193 cm (6' 4 ) 06/27/2019 10:49 AM CDT Body Mass Index 50.78 06/27/2019 10:49 AM CDT Plan of Treatment Health Maintenance Due Date Last Done Comments DTAP/TDAP/TD VACCINES (1 - Tdap) 1989 HEPATITIS B VACCINES (1 of 3 - 19+ 3-dose series) 1989 COLORECTAL SCREENING 2015 Colorectal Cancer Screening 2015 FIT-DNA Q 3 years 2015 FIT/FOBT Q 1 year 2015 Flex Sig/CT Colonography Q 5 years 2015 ZOSTER VACCINE (1 of 2) 2020 Pre-Diabetes and Diabetes Screening 08/03/202108/03, 01/30/2018 INFLUENZA VACCINE (#1) 2024 06/11/2019, 2017 [place] Prev entative Visit/Annual Wellness Visit 09/25/2024 08/03/2018, 02/28/2018 Procedures Procedure Name Priority Date/Time Associated Diagnosis Comments HEMOGLOBIN A1C Routine 08/03/2018 1:13 PM TRIM OPERATOR Wellness examination from Last 3 Months or Most Recently Relevant to Health Maintenance Results * HEMOGLOBIN A1C (08/03/2018 1:13 PM TRIM OPERATOR) HEMOGLOBIN A1C 5.3 4.0 - 6.0 % 08/03/2018 9:[address] [facility] EST. AVG GLUCOSE, A1C 105 mg/dL 08/03/2018 9:[address] [facility] Blood Venipuncture / Unknown 08/03/2018 1:13 PM TRIM OPERATOR 08/03/2018 8:40 [address] [facility] - 08/03/2018 9:25 PM TRIM OPERATOR HGB A1C INTERPRETATION NORMAL: <5.7% PRE-DIABETES: 5.7 - 6.4% DIABETES: 6.5% OR GREATER Falsely low A1C measurements can occur when: 1. Anemia and/or hemolytic anemia is present. 2. Hemoglobin variants present. 3. Renal failure. 4. Transfusion of blood product in the last 120 days. We recommend ordering a fructosamine test([id number]) to more accurately assess glycemic status if any of the above conditions are present. us Tessie Bond NP CHEMISTRY ORDERABLES Final R esult [facility] CLIA# [id number] [place] [address] from Last 3 Months or Most Recently Relevant to Health Maintenance Additional Health Concerns Infection Onset Date Last Indicated MRSA Comment:Rt knee wound 01/01/19 01/01/2019 01/01/2019 Insurance [facility] Advance Directives For more information, please contact: [phone] * Full Code (Latest Code Status on File) Date Activated Date Inactivated Comments 01/02/2019 4:37 PM 01/03/2019 7:24 PM * Full Code Date Activated Date Inactivated Comments 01/02/2019 1:29 PM 01/02/2019 4:37 PM Care Teams Delivery Supervisor Relationship Specialty Start Date End Date Brian Chaves MD [address] [place] [address] PCP - General Family Practice 06/04/20
--- OUTSIDE RECORDS SUMMARY | 2025-03-21 18:52 | XMS_ITS | Clinical Summary ---
Author Organization [facility] Address [address] [place] [phone] Care Team Providers Care Outside Upholsterer Name Role Phone Brian Chaves MD Primary Care Provider Allergies Active Allergy Reactions Criticality Noted Date Comments Diphenhydramine Hcl Rash High 03/09/2017 Sulfa (Sulfonamide Antibiotics) Rash Low 02/23 Medications loratadine (CLARITIN) 10 mg tabletIndication s:Environmental and seasonal allergies TAKE ONE (1) TABLET BY MOUTH DAILY 30 Tablet 5 12/12/19 20 Active naproxen (NAPROSYN) 500 mg tablet TAKE ONE (1) TABLET TWICE DAILY WITH MEALS 60 Tablet 2 09/12/20 19 Active albuterol HFA 90 mcg inhalerIndicatio ns:Wheezing INHALE 2 PUFFS BY MOUTH EVERY 6 HOURS NEEDED FOR SHORTNESS OF BREATH 18 Gram 2 12/12/19 20 Active oxybutynin chloride (DITROPAN) 5 mg tablet TAKE ONE TABLET BY MOUTH THREE TIMES A DAY BEGIN WITH ONCE DAILY AND MAY TITRATE UP TO THREE TIMES A DAY IF NEEDED 90 Tablet 5 12/12/19 20 Active ARIPiprazole (ABILIFY) 15 mg tabletIndication s:Recurrent major depressive disorder, in partial remission Take 1 Tablet (15 mg) by mouth daily at bedtime. 30 Tablet 5 01/30/20 19 Active FLUoxetine (PROzac) 40 mg capsuleIndicatio ns:Recurrent major depressive disorder, in partial remission Take 1 Capsule (40 mg) by mouth daily. 30 Capsule 5 01/26/20 19 Active esomeprazole (NexIUM) 40 mg Capsule, Delayed Release(E.C.) TAKE 1 CAPSULE BY MOUTH DAILY BEFORE BREAKFAST 90 Capsule 5 12/16/19 20 Active sucralfate (CARAFATE) 1 gram tabletIndication s:Superficial gastritis, presence of bleeding unspecified, unspecified chronicity TAKE ONE TABLET BY MOUTH FOUR TIMES DAILY BEFORE MEALS AND AT BEDTIME 120 Tablet 2 03/24/20 Active Zonisamide (ZONEGRAN) 100 mg capsuleIndicatio ns:Primary narcolepsy without cataplexy TAKE THREE (3) CAPSULES BY MOUTH AT BEDTIME 90 Capsule 5 01/28/20 20 Active furosemide (LASIX) 20 mg tablet TAKE ONE (1) TABLET BY MOUTH DAILY 30 Tablet 5 12/12/19 20 Active tamsulosin (FLOMAX) 0.4 mg capsuleIndicatio ns:Hx of hematuria,Noctur ia,Benign localized prostatic hyperplasia with lower urinary tract symptoms (LUTS),Slow urinary stream,Gross hematuria TAKE 1 CAPSULE (0.4 MG) BY MOUTH DAILY. 90 Capsule 2 03/24/20 20 Active ipratropium-albu teroL (DUONEB) 0.5 mg-3 mg(2.5 mg base)/3 mL Solution for NebulizationIndi cations:Mild intermittent asthma without complication,SOB (shortness of breath) on exertion,Chronic obstructive pulmonary disease, unspecified COPD type (CMS/HCC) Take 3 mL by inhalation every 12 hours. 60 Each 2 06/11/20 Active nebulizerIndicat ions:Chronic obstructive pulmonary disease, unspecified COPD type (CMS/HCC) Length of need 99 monthsNebulizer with compressor, Kit: Disposable Nebulizer Kit, 2 per month, filters , areosol mask: No. Name of Medication:duoneb 1 Each 0 06/13/20 Active loperamide (IMODIUM) 2 mg Tablet Take 1 Tablet (2 mg) by mouth every 4 hours as needed for Diarrhea/Loose Stools. Maximum 8 tablets in 24 hours. 07/11/20 Active fluticasone furoate-vilanter oL (BREO ELLIPTA) 100-25 mcg/dose Disk with DeviceIndication s:Simple chronic bronchitis (CMS/HCC) Take 1 Puff by inhalation daily. 60 Each 2 07/05/20 19 Active ibuprofen (MOTRIN) 800 mg tablet TAKE 1 TABLET (800 MG) BY MOUTH EVERY 6 HOURS NEEDED FOR MILD PAIN. 90 Tablet 5 08/15/20 19 Active albuterol HFA 90 mcg inhalerIndicatio ns:Wheezing INHALE 2 PUFFS BY MOUTH EVERY 6 HOURS NEEDED FOR SHORTNESS OF BREATH 18 Gram 1 02/29/20 21 Active Active Problems Problem Noted Date Diagnosed Date Mild intellectual disability 03/26/2019 Morbid obesity with BMI of 50.0-59.9, adult 10/26 Peripheral edema 09/27/2018 Obstructive sleep apnea on CPAP 08/03/2018 Irritability and anger 11/30/2017 Recurrent major depressive disorder, in partial remission 11/30/2017 Primary narcolepsy without cataplexy 11/30/2017 Overview (01/21/2021): Patient states was diagnosed in 1991 Mild intermittent asthma without complication Resolved Problems Problem Noted Date Diagnosed Date Resolved Date Class 3 severe obesity due t o excess calories without serious comorbidity with body mass index (BMI) of 40.0 to 44.9 in adult 03/16/201708/2019 Encounters Date Type Department Care Team Description 03/18/2025 External Device Data [facility] Provider, Abstract 03/11/2025 External Device Data [facility] Provider, Abstract 02/25/[address] [phone] Hang Chaves, Hx of hematuria; Nocturia; Benign localized prostatic hyperplasia with lower urinary tract symptoms (LUTS); Slow urinary stream; Gross hematuria 02/18/2025 External Device Data [facility] Provider, Abstract 01/07/2025 External Device Data [facility] Provider, Abstract from Last 3 Months Immunizations Immunization Administration Dates Next Due INFLUENZA [...] on file Legal Sex Male 9:38 AM PATIENT CARE SPECIALIST Gender Identity Not on file Sexual Orientation Not on file Last Filed Vital Signs Vital Sign Reading Time Taken Comments Blood Pressure 120/74 06/27/2019 10:49 AM CDT Pulse 72 06/27/2019 10:49 AM CDT Temperature 36.6 C (97.8 F) 06/27/2019 10:49 AM CDT Respiratory Rate 16 06/27/2019 10:4 9 AM CDT Oxygen Saturation - - Inhaled Oxygen Concentration - - Weight 189.2 [...] VACCINE (#1) 2024 06/11/2019, 2017 [place] ([place]) Prev entative Visit/Annual Wellness Visit 09/25/2024 08/03/2018 Procedures Procedure Name Priority Date/Time Associated Diagnosis Comments HEMOGLOBIN A1C Routine 08/03/2018 1:13 PM PATIENT CARE SPECIALIST from Last 3 Months or Most Recently Relevant to Health Maintenance Results * HEMOGLOBIN A1C (08/03/2018 1:13 PM PATIENT CARE SPECIALIST) HEMOGLOBIN A1C 5.3 4.0 - 6.0 % 08/03/2018 9:25 PM PATIENT CARE SPECIALIST [facility] EST. AVG GLUCOSE, A1C 105 mg/dL 08/03/2018 9:25 PM PATIENT CARE SPECIALIST [facility] Blood Venipuncture / Unknown 08/03/2018 1:13 PM PATIENT CARE SPECIALIST 08/03/2018 8:40 PM PATIENT CARE SPECIALIST Narrative [facility] - 08/03/2018 9:25 PM PATIENT CARE SPECIALIST HGB A1C INTERPRETATION NORMAL: <5.7% PRE-DIABETES: 5.7 - 6.4% DIABETES: 6.5% OR GREATER Falsely low A1C measurements can occur when: 1. Anemia and/or hemolytic anemia is present. 2. Hemoglobin variants present. 3. Renal failure. 4. Transfusion of blood product in the last 120 days. We recommend ordering a fructosamine test([id number]) to more accurately assess glycemic status if any of the above conditions are present. Tessie Bond NP CHEMISTRY ORDERABLES Final R esult [facility] CLIA# [id number] [address] [place] [address] from Last 3 Months or Most Recently Relevant to Health Maintenance Additional Health Concerns Infection Onset Date Last Indicated MRSA Comment:Rt knee wound 01/01/19 01/01/2019 01/02/2019 Insurance MEDICAID [place] [facility] DUAL COMPLETE HMO [facility] [id number] Care Teams Outside Upholsterer Relationship Specialty Start Date End Date Brian Chaves MD [address] [place] [phone] PCP - General Family Practice 06/04/20
[2025-03-21 19:48] LABS: Basophils % 0.5 %; Eosinophils # 0.1 10^3/uL (0.0-0.8); Eosinophils % 2.6 %; Hematocrit 38.4 % (37-53); Lymphocytes # 1.3 10^3/uL (0.8-4.8); Lymphocytes % 24.3 %; Mean Corpuscular Hemoglobin 30.8 pg (27-33); Mean Corpuscular Volume 96.2 fl (82-101); Mean Platelet Volume 9.6 fL (7.4-10.4); Monocytes # 0.6 10^3/uL (0.2-0.9); Monocytes % 10.2 %; Neutrophils # 3.38 10^3/uL (1.8-7.7); Neutrophils % 61.9 %; Nucleated Red Blood Cells % 0 %; Platelet Count 172 10^3/cmm (157-399); Red Blood Count 3.99 10^6/uL (3.85-5.65); Red Cell Distribution Width 13.2 % (12.1-15.1); White Blood Count 5.47 10^3/uL (3.29-11.43)
[2025-03-21 20:09] LABS: Alanine Aminotransferase 13 U/L (0-41); Albumin Level 3.5 g/dL (3.5-5.2); Alkaline Phosphatase 161 U/L (40-130); Anion Gap 16.9 (5-19); Aspartate Amino Transferase 15 U/L (0-40); Blood Urea Nitrogen 24 mg/dL (6-20); Calcium 8.8 mg/dL (8.5-10.5); Carbon Dioxide 24 mmol/L (22-29); Chloride 105 mmol/L (98-107); Globulin 2.9 g/dL (1.3-4.6); Glomerular Filtration Rate 69.8 mL/min (90-130); Glucose 104 mg/dL (65-115); Osmolality Calculated 298 mOsm/kg (285-295); Potassium 3.9 mmol/L (3.5-5.1); Sodium 142 mmol/L (136-145); Total Bilirubin 0.2 mg/dL (0.15-1.2); Total Protein 6.4 g/dL (6.6-8.7)
[2025-03-21 20:22] LABS: Troponin(5th) Baseline 11 ng/L (0-15)
--- NOTE | 2025-03-21 20:48 | ECG_ITS ---
[facility] Test Date: 2025-03-21 Pat Name: Esau Ibarra Department: Room: Gender: Male Academic Interventionist: : 1970 Requested By: Gabriel Gifford Order Number: [id number] Carrasco MD: Tyson Gonzales M.D. Measurements Intervals [place] Rate: 74 P: 44 IA: 169 QRS: -11 QRSD: 102 T: 18 QT: 404 QTc: 450 Interpretive Statements SINUS RHYTHM Compared to ECG 03/21/2025 19:01:30 Myocardial infarct finding no longer present Electronically Signed On 03-27-2025 09:39:12 CDT by Tyson Gonzales M.D. [email or web address]
[2025-03-21 21:08] LABS: Troponin 5 2HR 7.14 ng/L (0-15)
[2025-03-21 21:09] LABS: Troponin 5 2HR Delta -3.86 ABS# (0-10)
[2025-03-21 21:16] LABS: NT Pro B Type Natriuretic Pept 88 pg/mL (0-125)
--- NOTE | 2025-03-21 21:20 | ED_ITS ---
HPI - Chest Pain 2 General: Chief Complaint: Chest Pain Stated Complaint: cp Time Seen by Provider: 03/21/25 20:26 History of Present Illness: Patient is a 54-year-old gentleman complains of central chest pain with radiation to left arm that started at 5 PM. He was watching TV at the time. Risk factors: Obesity, HLD, both grandfathers with heart disease. Non-smoker, nondiabetic. No history of carotid disease. This improved after nitroglycerin. Patient stated it stopped after the nitroglycerin, however is starting to have a dull ache at this time at a 2?3. Denies any changes with recent cold or illness. Associated symptoms: Reports dyspnea; Deny abdominal pain, fever(s), nausea, palpitations or vomiting Related Data Home Medications ?Medication ?Instructions ?Recorded ?Confirmed loratadine 10 mg tablet (Allergy 10 mg PO DAILY 03/11/25 Relief (loratadine)) tamsulosin 0.4 mg capsule 0.4 mg PO DAILY 07/30/20 nystatin 100,000 unit/gram topical 1 applic topical DA LOIS PRN Skin 10/25/23 03/11/25 powder Irritation budesonide-formoterol HFA 80 1 inh inhalation BID 02/2403/11/25 mcg-4.5 mcg/actuation aerosol inhaler (Symbicort) ipratropium 0.5 mg-albuterol 3 mg 3 ml inhalation QID PRN Shortness 03/22/24 03/11/25 (2.5 mg base)/3 mL nebulization Of Breath soln pantoprazole 40 mg tablet,delayed 40 mg PO DAILY 03/2203/11/25 release Previous Rx's ?Medication ?Instructions ?Recorded hyaluronate sodium, stabilized 60 60 mg (3 mL) intra-a rticular ONCE 10/13/23 mg/3 mL intra-articular syringe #3 mL (Durolane) fluticasone propionate 115 2 puff inhalation BID #12 g khanh 11/28/23 mcg-salmeterol 21 mcg/actuation HFA inhaler (Advair HFA) atorvastatin 20 mg tablet See Rx Instructions .Route 0 02/06/24 .COMPLEX #90 tabs albuterol sulfate 90 mcg/actuation 2 puff inhalation Q 6H PRN 03/06/24 aerosol inhaler (ProAir HFA) Shortness Of Breath #8.5 grams terbinafine HCl 1 % topical cream 1 applic topical BID 14 days #30 03/23/24 grams ciprofloxacin HCl 500 mg tablet 500 mg PO BID #14 tabs 04/06/24 sumatriptan succinate 100 mg See Rx Instructions PO .C OMPLEX 04/17/24 tablet (Imitrex) #10 tabs furosemide 20 mg tablet 40 mg (2 x 20 mg) PO BID PRN Edema 07/04/24 #180 tabs isosorbide mononitrate 30 mg 15 mg (1/2 x 30 mg) PO BI D #90 tabs 11/06/24 tablet,extended release 24 hr modafinil 200 mg tablet (Provigil) 200 mg PO QAM #90 t abs 12/17/24 potassium chloride 20 mEq 10 meq (1/2 x 20 mEq) PO RADHAMES LY PRN 12/17/24 tablet,extended release With Lasix #90 tabs aripiprazole 30 mg tablet See Rx Instructions .Route 0 02/26/25 .COMPLEX #30 tabs zonisamide 100 mg capsule See Rx Instructions .Route 0 03/11/25 .COMPLEX #300 caps buspirone 5 mg tablet 5 mg PO BID #60 tabs 5 fluoxetine 40 mg capsule 80 mg (2 x 40 mg) PO DAILY 3 0 days 03/21/25 #60 caps Allergies Allergy/AdvReac Type Severity Reaction Status Date / Time diphenhydramine (From Allergy Unknown ALGY-Rash Verified 03/11/25 12:58 Benadryl) Sulfa (Sulfonamide Allergy Unknown Unknown Verified 03/11/25 12:58 Antibiotics) Review of Systems 2 General: Reports: 10 or more systems reviewed and unremarkable except in HPI and below Const: Denies: fever(s) or chills Eyes: Denies: change in vision or blurry vision ENMT: Denies: throat pain or mouth pain Card: Reports: chest pain and swelling of feet/ankles; Denies: palpitations Resp: Reports: dyspnea; Denies: productive cough GI: Denies: abdominal pain, nausea or vomiting : Denies: flank pain or difficulty urinating Musc: Denies: neck pain, back pain or extremity pain Skin/Breast: Denies: rash or pruritus Neuro: Denies: headache(s), numbness in extremities, weakness in extremities or sensory changes Psych: Denies: anxiety or depression PFSH ED 2 PFSH: Medical History Intellectual delay MDD (major depressive disorder) Psychiatric care Essential hypertension CHF (congestive heart failure) FABIEN (obstructive sleep apnea) GERD (gastroesophageal reflux disease) Family History Other Cancer Hypertension Social History Smoking and tobacco/nicotine status: never used tobacco/nicotine Quit status (tobacco/nicotine): has quit using Year quit tobacco: 2021 Chewing tobacco Former quit date comment: about a month ago Second hand smoke exposure: Yes Alcohol intake: current Alcohol intake frequency: holidays/special occasions only Substance/Drug Use: former Adopted: No Caregiver/support person: Yes (every Monday to set up meds and a floor finisher helper that cleans daily) Lives independently: Yes Household members: none Housing: Apartment Marital status: Single Number of children: 0 Number of grandchildren: 0 Highest education level completed: Some College, No Degree service: No Current occupational status: disabled Pets and animals: Yes (rod mora) Pets & animals: cat(s) Leisure activites: music, games and other Leisure activities details: loves to cook Sexually active: No Do you think of yourself as: Straight/Heterosexual Current gender identity: Male Alexandrea/Mosque: Yazdanism Special alexandrea needs: No Agree to transfusion: Yes Physical Exam 2 Const: COMMON NORMALS: no acute distress, patient oriented x3 and well nourished GENERAL APPEARANCE: cooperative and disheveled NUTRITIONAL APPEARANCE: obese morbidly obese HENMT: COMMON NORMALS: normocephalic and atraumatic HEAD & SCALP: n ormocephalic and atraumatic Chest: COMMONS NORMALS: normal inspection of the chest CHEST: Yes abnormal inspection of the chest (Pain with palpation left sternal mid chest) Resp: COMMON NORMALS: normal respiratory effort, No retractions and clear to auscultation bilaterally AUSCULTATION: clear to auscultation bilaterally Cardio: COMMON NORMALS: regular rate and regular rhythm RATE: regular rate RHYTHM: regular rhythm GI: COMMON NORMALS: Normal to inspection, nondistended, normoactive bowel sounds present, Soft to palpation and non-tender PALPATION: Yes Soft to palpation : COMMON NORMALS: Yes no CVA tenderness BLADDER/KIDNEY EXAM: Yes no CVA tenderness Back/Pelvis: COMMON NORMALS: no CVA tenderness Extremity: COMMON NORMALS: normal to inspection and full ROM Neuro: COMMON NORMALS: patient oriented x3 Psych: COMMON NORMALS: mental status grossly normal and Normal thought process present THOUGHT PROCESS: Normal thought process present Skin: COMMON NORMALS: no rashes or lesions noted and no wounds GENERAL SKIN EXAM: no rashes or lesions noted Course 2 Reevaluation(s): Reevaluation #1: Improved after nitroglycerin paste. No more chest pain. Vital Signs: Vital signs: Vital Signs Temperature 97.3 F L 03/21/25 18:55 Pulse Rate 71 03/21/25 23:26 Respiratory Rate 16 03/21/25 23:26 Blood Pressure 158/99 03/21/25 23:26 Pulse Oximetry 93 03/21/25 23:26 Oxygen Delivery Me thod Room Air 03/21/25 23:26 MDM - Chest Pain Medical Decision Making Patient is a 54-year-old gentleman presents to the ED with chest pain, at rest, without previous history of coronary artery disease. He continued to have chest pain despite a flat troponin, and therefore a 6-hour was obtained. He does have lower extremity edema. I suspect dependency. His BMI is 49. His BNP is not significantly elevated in his range. To control his lower extremity edema, Lasix x 1 was given. He was placed on nitroglycerin paste given ongoing chest pain. He did seem to have improvement after nitroglycerin. I do still suspect a factor of costochondritis given the fact that he had reproducible chest pain. Discussed with patient. He is to follow-up with his doctor for possible cardiology follow-up given his risk factors of coronary artery disease, although at this time he does not have any acute concern for continued observation. Lab Data 03/21/25 19:38 03/21/25 19:38 Radiology Impressions Chest X-Ray 03/21/25 18:48 IMPRESSION: No acute cardiopulmonary process. Laboratory Results WBC 5.47 10^3/uL (3.29-11.43) 03/21/25 19:38 RBC 3.99 10^6/uL (3.85-5.65) 03/21/25 19:38 Hgb 12.30 g/dL (11.27-16.99) 03/21/25 19:38 Hct 38.4 % (37-53) 03/21/25 19:38 MCV 96.2 fl (82-101) 03/21/25 19:38 MCH 30.8 pg (27-33) 03/21/25 19:38 MCHC 32.0 g/dL (30-55) 03/21/25 19:38 RDW 13.2 % (12.1-15.1) 03/21/25 19:38 Plt Count 172 10^3/cmm (157-399) 03/21/25 19:38 MPV 9.6 fL (7.4-10.4) 03/21/25 19:38 Neut % (Auto) 61.9 % 03/21/25 19:38 Lymph % (Auto) 24.3 % 03/21/25 19:38 Mcleod % (Auto) 10.2 % 03/21/25 19:38 Eos % (Auto) 2.6 % 03/21/25 19:38 Baso % (Auto) 0.5 % 03/21/25 19:38 Neut # (Auto) 3.38 10^3/uL (1.8-7.7) 03/21/25 19:38 Lymph # (Auto) 1.3 10^3/uL (0.8-4.8) 03/21/25 19:38 Mcleod # (Auto) 0.6 10^3/uL (0.2-0.9) 03/21/25 19:38 Eos # (Auto) 0.1 10^3/uL (0.0-0.8) 03/21/25 19:38 Baso # (Auto) 0.0 10^3/uL (0.0-0.1) 03/21/25 19:38 Nucleated RBC % (auto) 0 % 03/21/25 19:38 Nucleated RBCs # 0.0 /100WBC 03/21/25 19:38 Sodium 142 mmol/L (136-145) 03/21/25 19:38 Potassium 3.9 mmol/L (3.5-5.1) 03/21/25 19:38 Chloride 105 mmol/L (98-107) 03/21/25 19:38 Carbon Dioxide 24 mmol/L (22-29) 03/21/25 19:38 Anion Gap 16.9 (5-19) 03/21/25 19:38 BUN 24 mg/dL (6-20) H 03/21/25 19:38 Creatinine 1.1 mg/dL (0.7-1.2) 03/21/25 19:38 GFR Calculation 69.8 mL/min (90-130) L 03/21/25 19:38 Glucose 104 mg/dL (65-115) 03/21/25 19:38 Calculated Osmolality 298 mOsm/kg (285-295) H 03/21/25 19:38 Calcium 8.8 mg/dL (8.5-10.5) 03/21/25 19:38 Total Bilirubin 0.2 mg/dL (0.15-1.2) 03/21/25 19:38 AST 15 U/L (0-40) 03/21/25 19:38 ALT 13 U/L (0-41) 03/21/25 19:38 Alkaline Phosphatase 161 U/L (40-130) H 03/21/25 19:38 Troponin T Baseline 11 ng/L (0-15) 03/21/25 19:38 Troponin T 120 Minute 7.14 ng/L (0-15) 03/21/25 20:40 Delta Troponin T -3.86 ABS# (0-10) L 03/21/25 20:40 Troponin T Hi Sens 6Hr 7.90 ng/L (0-15) 03/22/25 00:49 Troponin T Hi Sens 6Hr Delta -3.10 ng/L (0-12) L 03/22/25 00:49 NT-Pro-B Natriuret Pep 88 pg/mL (0-125) 03/21/25 19:38 Total Protein 6.4 g/dL (6.6-8.7) L 03/21/25 19:38 Albumin 3.5 g/dL (3.5-5.2) 03/21/25 19:38 Globulin 2.9 g/dL (1.3-4.6) 03/21/25 19:38 All radiology interpretation(s) finalized by discharge ED provider radiology interpretation(s): no acute Discharge Plan Discharge Patient Disposition: Home Clinical Impression: Atypical chest pain, Costalchondritis Condition: Stable Prescriptions: No Action tamsulosin 0.4 mg capsule 0.4 mg PO DAILY loratadine [Allergy Relief (loratadine)] 10 mg tablet 10 mg PO DAILY Durolane 60 mg/3 mL syringe 60 mg intra-articular ONCE Qty: 3 0RF nystatin 100,000 unit/gram powder 1 applic topical DAILY PRN (Reason: Skin Irritation) furosemide 20 mg tablet 40 mg PO BID PRN (Reason: Edema) Qty: 180 3RF isosorbide mononitrate 30 mg tablet extended release 24 hr 15 mg PO BID Qty: 90 3RF sumatriptan succinate [Imitrex] 100 mg tablet See Rx Instructions PO .COMPLEX Qty: 10 4RF Rx Instructions: take 1 as soon as the headache starts. repeat in 1 hour if needed fluticasone propion-salmeterol [Advair HFA] 115-21 mcg/actuation HFA aerosol inhaler 2 puff inhalation BID Qty: 12 6RF atorvastatin 20 mg tablet See Rx Instructions .ROUTE .COMPLEX Qty: 90 2RF Dose Instruction: TAKE 1 TABLET BY MOUTH EVERY BEDTIME Rx Instructions: TAKE 1 TABLET BY MOUTH EVERY BEDTIME albuterol sulfate [ProAir HFA] 90 mcg/actuation HFA aerosol inhaler 2 puff inhalation Q6H PRN (Reason: Shortness Of Breath) Qty: 8.5 3RF potassium chloride 20 mEq tablet extended release 10 meq PO DAILY PRN (Reason: With Lasix) Qty: 90 3RF modafinil [Provigil] 200 mg tablet 200 mg PO QAM Qty: 90 3RF aripiprazole 30 mg tablet See Rx Instructions .ROUTE .COMPLEX Qty: 30 12RF Dose Instruction: TAKE 1 TABLET BY MOUTH EVERY DAY AT BEDTIME Rx Instructions: TAKE 1 TABLET BY MOUTH EVERY DAY AT BEDTIME zonisamide 100 mg capsule See Rx Instructions .ROUTE .COMPLEX Qty: 300 3RF Dose Instruction: TAKE 3 CAPSULES BY MOUTH EVERY NIGHT AT BEDTIME Rx Instructions: TAKE 3 CAPSULES BY MOUTH EVERY NIGHT AT BEDTIME fluoxetine 40 mg capsule 80 mg PO DAILY 30 Days Qty: 60 5RF buspirone 5 mg tablet 5 mg PO BID Qty: 60 3RF pantoprazole 40 mg tablet,delayed release (DR/EC) 40 mg PO DAILY Symbicort 80-4.5 mcg/actuation HFA aerosol inhaler 1 inh INHALATION BID ipratropium-albuterol 0.5 mg-3 mg(2.5 mg base)/3 mL solution for nebulization 3 ml INHALATION QID PRN (Reason: Shortness Of Breath) terbinafine HCl 1 % Cream 1 applic topical BID 14 Days Qty: 30 1RF ciprofloxacin HCl 500 mg tablet 500 mg PO BID Qty: 14 0RF Discharge Orders: Discharge ED (Routine); Ordered 03/22/25 Ordered By: Louise James Referrals: Francesco Grady MD [Primary Care Provider, [facility]] Discharge Diet: Low Salt Discharge Activity: Resume usual activity Patient Instructions: Patient Portal & Alejandra Instructions, Costochondritis - Adult, DASH Eating Plan (ED) Activity Restrictions/Additional Instructions: Call Monday for a doctor's appointment follow-up next week You had a full troponin series for over 6 hours in the ED and did not have a change. This indicates you do not have any acute cardiac issues at this time, but does not rule out blockage. Physical exam is significant for costochondritis that I have given you information for, or inflammation of the chest. Take a baby aspirin daily until follow-up. Weigh daily. Take a log to your doctors follow-up Follow a low-salt diet given your lower extremity edema. Return to ED for worsening pain Print Language: Montserratian Coding Level of Care Code ED [facility] [place]
[2025-03-21] MEDS: nitroglycerin 1 gm/inch oint Pkt 0.5 INCH TOPICAL (21:58)
[2025-03-21] MEDS: FUROsemide 10 mg/mL SDV 4mL 40 MG IVP (22:44)
[2025-03-21] MEDS: morphine 4 mg/mL SDV 1 mL IVP (22:44)
--- NOTE | 2025-03-22 00:48 | ECG_ITS ---
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 Measurements Intervals [place] Rate: 68 P: -8 IL: 193 QRS: -9 QRSD: 105 T: 15 QT: 421 QTc: 449 Interpretive Statements SINUS RHYTHM POSSIBLE ANTERIOR MYOCARDIAL INFARCTION , PROBABLY OLD [30 ms Q WAVE IN V3/V4, OR R < 0.2 mV IN V4] Compared to ECG 03/21/2025 20:57:48 Myocardial infarct finding now present Electronically Signed On 03-27-2025 09:39:02 CDT by Tyson Gonzales M.D. [email or web address]
[2025-03-22 02:23] VITALS: BP 125/60; PULSE 73; O2SAT 96
== END 2025-03-22 02:15 | disposition home or self-care (01) ==
PROVIDERS: Student in an Organized Health Care Education/Training Program; Emergency Provider Physician Assistant; PCP Family Medicine
DX: R07.89 Other chest pain (principal); M94.0 Chondrocostal junction syndrome [Tietze]; Z87.891 Personal history of nicotine dependence; I11.0 Hypertensive heart disease with heart failure; I50.9 Heart failure, unspecified
CPT/HCPCS: 36415; 71045; 80053; 83880; 84484; 85025; 93005; 96374; 96375; 99285; J1938; J2270; J9999

== ENCOUNTER → 2025-04-02 08:38 | Outpatient (BNVA) | payer OTHER, MEDICAID, SELFPAY ==
[2022-03-02 14:14] VITALS: BP 126/71; BMI 52.2
== END ==
PROVIDERS: PCP Family Medicine; Visit Provider Student in an Organized Health Care Education/Training Program
DX: M17.12 Unilateral primary osteoarthritis, left knee (principal); Z71.89 Other specified counseling
CPT/HCPCS: 20610; 73560; 73565; 99213; J7318

== ENCOUNTER → 2025-04-03 09:20 | Outpatient (BNVA) | payer OTHER, MEDICAID, SELFPAY ==
[2022-03-02 14:14] VITALS: BP 126/71; BMI 52.2
== END ==
PROVIDERS: PCP Family Medicine; Visit Provider Nurse Practitioner Family
DX: R07.9 Chest pain, unspecified (principal); I11.0 Hypertensive heart disease with heart failure; I50.9 Heart failure, unspecified; E66.01 Morbid (severe) obesity due to excess calories; Z68.43 Body mass index [BMI] 50.0-59.9, adult; Z87.891 Personal history of nicotine dependence
CPT/HCPCS: 99214

== ENCOUNTER → 2025-04-21 13:31 | Outpatient (BNVA) | payer MEDICARE, MEDICAID, SELFPAY ==
[2022-03-02 14:14] VITALS: BP 126/71; BMI 52.2
== END ==
PROVIDERS: PCP Family Medicine; Visit Provider Specialist
DX: G47.419 Narcolepsy without cataplexy (principal); G43.019 Migraine without aura, intractable, without status migrainosus; G47.33 Obstructive sleep apnea (adult) (pediatric)
CPT/HCPCS: 99214

== ENCOUNTER 2025-06-01 19:10 | Emergency (ER) | payer OTHER, MEDICAID, SELFPAY ==
[2022-03-02 14:14] VITALS: BP 126/71; BMI 52.2
[2025-06-01 19:27] VITALS: BP 119/70; PULSE 63; RESP 18; TEMP 37.1; O2SAT 95; BMI 47.5
--- OUTSIDE RECORDS SUMMARY | 2025-06-01 19:29 | XMS_ITS | Clinical Summary ---
Author Organization [facility] Address [address] [place] [id number] Care Team Providers Care Mortgage Protection Specialist Name Role Phone Brian Chaves MD Primary Care Provider [phone] Allergies Active Allergy Reactions Criticality Noted Date [...] on file Legal Sex Male 9:38 AM DOPSTER Gender Identity Not on file Sexual Orientation [...] 2020 Pre-Diabetes and Diabetes Screening 08/03/202108/03, 01/30/2018 [place] Prev entative Visit/Annual Wellness Visit 09/25/2024 08/03/2018 INFLUENZA VACCINE (#1) 2025 06/11/2019, 2017 Procedures Procedure Name Priority Date/Time Associated Diagnosis Comments HEMOGLOBIN A1C Routine 08/03/2018 1:13 PM DOPSTER from Last 3 Months or Most Recently Relevant to Health Maintenance Results * HEMOGLOBIN A1C (08/03/2018 1:13 PM DOPSTER) HEMOGLOBIN A1C 5.3 4.0 - 6.0 % 08/03/2018 9:25 PM DOPSTER [facility] EST. AVG GLUCOSE, A1C 105 mg/dL 08/03/2018 9:25 PM DOPSTER [facility] Blood Venipuncture / Unknown 08/03/2018 1:13 PM DOPSTER 08/03/2018 8:40 PM DOPSTER Narrative [facility] - 08/03/2018 9:25 PM DOPSTER HGB A1C INTERPRETATION NORMAL: <5.7% PRE-DIABETES: 5.7 - 6.4% DIABETES: 6.5% OR GREATER Falsely low A1C measurements can occur when: 1. Anemia and/or hemolytic anemia is present. 2. Hemoglobin variants present. 3. Renal failure. 4. Transfusion of blood product in the last 120 days. We recommend ordering a fructosamine test([id number]) to more accurately assess glycemic status if any of the above conditions are present. us Tessie Bond HYDRAULIC MODELING ENGINEER CHEMISTRY ORDERABLES Final R esult [facility]# [id number] [address] [place] [address] from Last 3 Months or Most Recently Relevant to Health Maintenance Additional Health Concerns Infection Onset Date Last Indicated MRSA Comment:Rt knee wound 01/01/19 01/01/2019 01/02/2019 Insurance MEDICAID [facility] DUAL COMPLETE HMO [facility] [id number] Care Teams Mortgage Protection Specialist Relationship Specialty Start Date End Date Brian Chaves MD [address] [place] [address] PCP - General Family Practice 06/04/20
--- OUTSIDE RECORDS SUMMARY | 2025-06-01 19:29 | XMS_ITS | Clinical Summary ---
Author Organization [facility] Address [address] [place] [phone] Care Team Providers Care Signalling And Communications Engineer Name Role Phone Brian Chaves MD Primary Care Provider [phone] Allergies Active Allergy Reactions Criticality Noted Date [...] and Diabetes Screening 08/03/202108/03, 01/30/2018 [place] Prev entative Visit/Annual Wellness Visit 09/25/2024 08/03/2018, 02/28/2018 INFLUENZA VACCINE (#1) 2025 06/11/2019, 2017 Procedures Procedure Name Priority Date/Time Associated Diagnosis Comments HEMOGLOBIN A1C Routine 08/03/2018 1:13 PM CHANNEL OPENER Wellness examination from Last 3 Months or Most Recently Relevant to Health Maintenance Results * HEMOGLOBIN A1C (08/03/2018 1:13 PM CHANNEL OPENER) HEMOGLOBIN A1C 5.3 4.0 - 6.0 % 08/03/2018 9:25 PM CHANNEL OPENER [facility] EST. AVG GLUCOSE, A1C 105 mg/dL 08/03/2018 9:25 PM CHANNEL OPENER [facility] Blood Venipuncture / Unknown 08/03/2018 1:13 PM CHANNEL OPENER 08/03/2018 8:40 PM CHANNEL OPENER Narrative [facility] - 08/03/2018 9:25 PM CHANNEL OPENER HGB A1C INTERPRETATION NORMAL: <5.7% PRE-DIABETES: 5.7 - 6.4% DIABETES: 6.5% OR GREATER Falsely low A1C measurements can occur when: 1. Anemia and/or hemolytic anemia is present. 2. Hemoglobin variants present. 3. Renal failure. 4. Transfusion of blood product in the last 120 days. We recommend ordering a fructosamine test([id number]) to more accurately assess glycemic status if any of the above conditions are present. us Tessie Bond NP CHEMISTRY ORDERABLES Final R esult [facility] CLIA# [id number] [address] [place] [address] from Last 3 Months or Most Recently Relevant to Health Maintenance Additional Health Concerns Infection Onset Date Last Indicated MRSA Comment:Rt knee wound 01/01/19 01/01/2019 01/01/2019 Insurance MEDICAID [facility] Advance Directives For more information, please contact: [phone] * Full Code (Latest Code Status on File) Date Activated Date Inactivated Comments 01/02/2019 4:37 PM 01/03/2019 7:24 PM * Full Code Date Activated Date Inactivated Comments 01/02/2019 1:29 PM 01/02/2019 4:37 PM Care Teams Signalling And Communications Engineer Relationship Specialty Start Date End Date Brian Chaves MD [address] [place] [address] PCP - General Family Practice 06/04/20
--- NOTE | 2025-06-01 19:35 | CTR_ITS ---
PROCEDURE INFORMATION: Exam: CT Abdomen And Pelvis With Contrast Exam date and time: 06/01/2025 8:08 PM Age: 55 years old Clinical indication: Abdominal pain; Localized; Left lower quadrant (llq); Prior surgery; Surgery date: 6+ months; Surgery type: Stimulator; Additional info: Llq pain TECHNIQUE: Imaging protocol: Computed tomography of the abdomen and pelvis with contrast. Radiation optimization: All CT scans at this facility use at least one of these dose optimization techniques: automated exposure control; mA and/or kV adjustment per patient size (the fact includes targeted exams where dose is matched to clinical indication); or iterative reconstruction. Contrast material: OMNI 350; Contrast volume: 125 ml; Contrast route: INTRAVENOUS (IV); COMPARISON: CT abdomen pelvis w con* [id number] 09/03/2023 4:53 PM RADIATION DOSE METRICS: Total DLP (mGy-cm): 1920.24 FINDINGS: Lower chest: Heart size normal. Lungs are clear. Liver: Compromised evaluation of the liver due to artifact by arm lying along the right side. Liver unremarkable. Gallbladder and biliary ducts: Partially contracted gallbladder. No calcified stones. No ductal dilation. Pancreas: Normal. No ductal dilation. Spleen: Normal. No splenomegaly. Adrenal glands: Normal. No mass. Kidneys and ureters: Normal. No hydronephrosis. Stomach and bowel: Stomach filled with partially digested food stuff and fluid. No wall thickening. This may represent delayed emptying of the stomach. Small bowel and colon unremarkable. Colonic interposition. Some adherent stool rectum Appendix: No evidence of appendicitis. Intraperitoneal space: Unremarkable. Vasculature: Unremarkable. Lymph nodes: Unremarkable Urinary bladder: Urinary bladder wall measures up to 8 mm in thickness mildly thickened. Correlate for symptoms of UTI. There is submucosal fatty infiltration. Reproductive: Prostate unremarkable. Bones: Moderate to marked degenerative changes lumbar spine. Bridging osteophytes. Soft tissues: Unremarkable. CT/CT abdomen pelvis w con* [id number] IMPRESSION: 1. Stomach filled with partially digested food stuff and fluid. This may represent some delayed gastric emptying. 2. Mild wall thickening of the urinary bladder. Correlate for UTI. Submucosal fatty infiltration. 3. Degenerative changes lumbar spine. 4. Colonic interposition.
[2025-06-01] MEDS: iohexol 350 mg/mL 500 mL Btl (per mL) IV (20:09)
[2025-06-01 20:21] VITALS: RESP 17
[2025-06-01] MEDS: ondansetron 2 mg/ML SDV 2 mL 4 MG IVP (20:21)
[2025-06-01] MEDS: morphine 4 mg/mL SDV 1 mL IVP (20:21)
[2025-06-01 20:31] VITALS: BP 135/77; O2SAT 96
[2025-06-01 20:35] LABS: Hematocrit 39.2 % (37-53); Hemoglobin 12.70 g/dL (11.27-16.99); Mean Corpuscular HGB Conc 32.4 g/dL (30-55); Mean Corpuscular Hemoglobin 31.0 pg (27-33); Mean Corpuscular Volume 95.6 fl (82-101); Nucleated Red Blood Cells % 0 %; Platelet Count 170 10^3/cmm (157-399); Red Blood Count 4.10 10^6/uL (3.85-5.65); White Blood Count 5.46 10^3/uL (3.29-11.43)
[2025-06-01 20:41] LABS: Glucose Urine UA Negative (Normal); Nitrate Urine Negative (Negative); Specific Gravity, Urine 1.020 (1.005-1.030)
[2025-06-01 20:56] LABS: INR 1.11 (0.8-1.2); Prothrombin Time 15.00 SECONDS (12.1-14.9)
--- NOTE | 2025-06-01 21:00 | W.ED.ABDPA2 ---
HPI - Abdominal Pain General: Chief Complaint: Abdominal Pain Stated Complaint: ABD PAIN Time Seen by Provider: 06/01/25 19:15 History of Present Illness: Patient is a 55-year-old male presenting with left lower quadrant abdominal pain that began approximately 30-60 minutes prior to arrival. The pain was initially described as severe ( real bad ) but has somewhat improved by the time of examination, though still present. The pain was not associated with any specific activity; patient reports he was just sitting there when it started. He denies nausea, vomiting, fever, or diarrhea. Patient reports possible mild dysuria. He recalls having similar pain a long time ago which he states was attributed to his appendix, though this current episode is described as more severe than previous occurrences. No history of abdominal surgery Related Data Home Medications ?Medication ?Instructions ?Recorded ?Confirmed loratadine 10 mg tablet (Allergy 10 mg PO DAILY 07/30/20 05/28/25 Relief (loratadine)) tamsulosin 0.4 mg capsule 0.4 mg PO DAILY 07/30/20 05/28/25 nystatin 100,000 unit/gram topical 1 applic topical DAILY PRN Skin 10/25/23 05/28/25 powder Irritation ipratropium 0.5 mg-albuterol 3 mg 3 ml inhalation QID PRN Shortness 03/22/24 05/28/25 (2.5 mg base)/3 mL nebulization Of Breath soln pantoprazole 40 mg tablet,delayed 40 mg PO DAILY 03/22/24 05/28/25 release budesonide-formoterol HFA 80 1 inh inhalation BID PRN 04/03/25 05/28/25 mcg-4.5 mcg/actuation aerosol inhaler (Symbicort) furosemide 20 mg tablet 40 mg PO DAILY Edema 04/03/25 05/28/25 potassium chloride 20 mEq 10 meq PO DAILY With Lasix 04/03/25 05/28/25 tablet,extended release Previous Rx's ?Medication ?Instructions ?Recorded hyaluronate sodium, stabilized 60 60 mg (3 mL) intra-articular ONCE 10/13/23 mg/3 mL intra-articular syringe #3 mL (Durolane) albuterol sulfate 90 mcg/actuation 2 puff inhalation Q6H PRN 03/06/24 aerosol inhaler (ProAir HFA) Shortness Of Breath #8.5 grams aripiprazole 30 mg tablet See Rx Instructions .Route 02/26/25 .COMPLEX #30 tabs fluoxetine 40 mg capsule 80 mg (2 x 40 mg) PO DAILY 30 days 03/21/25 #60 caps atorvastatin 20 mg tablet See Rx Instructions .Route 04/11/25 .COMPLEX #90 tabs buspirone 10 mg tablet 10 mg PO BID #60 tabs 04/11/25 isosorbide mononitrate 30 mg 15 mg (1/2 x 30 mg) PO BID #90 tabs 04/11/25 tablet,extended release 24 hr sumatriptan succinate 100 mg See Rx Instructions PO .COMPLEX 04/16/25 tablet (Imitrex) #10 tabs modafinil 200 mg tablet (Provigil) 200 mg PO QAM #90 tabs 04/21/25 zonisamide 100 mg capsule See Rx Instructions .Route 04/21/25 .COMPLEX #300 caps risperidone 0.5 mg tablet 0.5 mg PO BEDTIME #30 tabs 05/28/25 (Risperdal) Allergies Allergy/AdvReac Type Severity Reaction Status Date / Time diphenhydramine (From Allergy Unknown ALGY-Rash Verified 05/28/25 11:20 Benadryl) Sulfa (Sulfonamide Allergy Unknown Unknown Verified 05/28/25 11:20 Antibiotics) PFSH ED PFSH: Medical History Intellectual delay Mild episode of recurrent major depressive disorder Psychiatric care Essential hypertension CHF (congestive heart failure) FABIEN (obstructive sleep apnea) GERD (gastroesophageal reflux disease) Family History Other Cancer Hypertension Social History Smoking and tobacco/nicotine status: never used tobacco/nicotine Quit status (tobacco/nicotine): has quit using Year quit tobacco: 2021 Chewing tobacco Former quit date comment: about a month ago Second hand smoke exposure: Yes Alcohol intake: current Alcohol intake frequency: holidays/special occasions only Substance/Drug Use: former Adopted: No Caregiver/support person: Yes (every Monday to set up meds and 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) Lives independently: Yes Household members: none Housing: Apartment Marital status: Single Number of children: 0 Number of grandchildren: 0 Highest education level completed: Some College, No Degree service: No Current occupational status: disabled Pets and animals: Yes (rod mora) Pets & animals: cat(s) Leisure activites: music, games and other Leisure activities details: loves to cook Sexually active: No Do you think of yourself as: Straight/Heterosexual Current gender identity: Male Alexandrea/Roman Catholic: Islam Special alexandrea needs: No Agree to transfusion: Yes Physical Exam Const: COMMON NORMALS: no acute distress GENERAL APPEARANCE: cooperative; not ill appearing and not frail appearing HENMT: COMMON NORMALS: normocephalic, atraumatic and Normal external nose present HEAD & SCALP: normocephalic and atraumatic FACE & SINUS: normal facial exam and face symmetric NOSE: Normal external nose present Eye: COMMON NORMALS: Equal, round and reactive pupils present and EOMs intact bilaterally PUPIL: Yes Equal, round and reactive pupils present Neck/C-Spine: GENERAL: Yes trachea midline Chest: CHEST: Yes Symmetrical chest wall rise Resp: COMMON NORMALS: normal respiratory effort, No retractions, No use of accessory muscles and clear to auscultation bilaterally AUSCULTATION: clear to auscultation bilaterally Cardio: COMMON NORMALS: regular rate and regular rhythm RATE: regular rate RHYTHM: regular rhythm GI: COMMON NORMALS: Normal to inspection, nondistended, normoactive bowel sounds present Extremity: COMMON NORMALS: no pedal edema Neuro: DOYLE COMA SCALE: document GCS findings Doyle coma scale eye opening: Spontaneous [place]uney coma scale verbal response: Orientated Doyle coma scale motor response: Obey commands Doyle coma scale total score: 15 SENSORY EXAM: Yes extremities (intact) Psych: COMMON NORMALS: speech normal SPEECH: Yes normal speech Skin: COMMON NORMALS: no rashes or lesions noted GENERAL SKIN EXAM: no rashes or lesions noted Course Vital Signs: Vital signs: Vital Signs Temperature 98.8 F 06/01/25 19:27 Pulse Rate 61 06/01/25 22:46 Respiratory Rate 18 06/01/25 22:46 Blood Pressure 130/80 06/01/25 22:46 Pulse Oximetry 96 06/01/25 22:46 Oxygen Delivery Me thod Room Air 06/01/25 22:18 MDM - Abdominal Pain Medical Decision Making CBC BMP are normal. Liver enzymes are not remarkable. Lactic acid is 1.2. Urinalysis is negative. CT shows no acute findings. His pain is improved. He will be discharged to return for new or worsening symptoms. Lab Data 06/01/25 20:23 06/01/25 20:23 Labs/Radiology: Radiology Impressions Abdomen/Pelvis CT 06/01/25 19:35 IMPRESSION: 1. Stomach filled with partially digested food stuff and fluid. This may represent some delayed gastric emptying. 2. Mild wall thickening of the urinary bladder. Correlate for UTI. Submucosal fatty infiltration. 3. Degenerative changes lumbar spine. 4. Colonic interposition. Laboratory Results WBC 5.46 10^3/uL (3.29-11.43) 06/01/25 20: RBC 4.10 10^6/uL (3.85-5.65) 06/01/25 20:23 Hgb 12.70 g/dL (11.27-16.99) 06/01/25 20:23 Hct 39.2 % (37-53) 06/01/25 20:23 MCV 95.6 fl (82-101) 06/01/25 20:23 MCH 31.0 pg (27-33) 06/01/25 20:23 MCHC 32.4 g/dL (30-55) 06/01/25 20:23 RDW 13.3 % (12.1-15.1) 06/01/25 20:23 Plt Count 170 10^3/cmm (157-399) 06/01/25 20:23 MPV 9.7 fL (7.4-10.4) 06/01/25 20:23 Neut % (Auto) 59.8 % 06/01/25 20:23 Lymph % (Auto) 27.7 % 06/01/25 20:23 Snyder % (Auto) 9.7 % 06/01/25 20:23 Eos % (Auto) 2.2 % 06/01/25 20:23 Baso % (Auto) 0.4 % 06/01/25 20:23 Neut # (Auto) 3.27 10^3/uL (1.8-7.7) 06/01/25 20:23 Lymph # (Auto) 1.5 10^3/uL (0.8-4.8) 06/01/25 20:23 Snyder # (Auto) 0.5 10^3/uL (0.2-0.9) 06/01/25 20:23 Eos # (Auto) 0.1 10^3/uL (0.0-0.8) 06/01/25 20:23 Baso # (Auto) 0.0 10^3/uL (0.0-0.1) 06/01/25 20:23 Nucleated RBC % (auto) 0 % 06/01/25 20:23 Nucleated RBCs # 0.0 /100WBC 06/01/25 20:23 PT 15.00 SECONDS (12.1-14.9) H 06/01/25 20:23 INR 1.11 (0.8-1.2) 06/01/25 20:23 Sodium 137 mmol/L (136-145) 06/01/25 20:23 Potassium 3.5 mmol/L (3.5-5.1) 06/01/25 20:23 Chloride 102 mmol/L (98-107) 06/01/25 20:23 Carbon Dioxide 24 mmol/L (22-29) 06/01/25 20:23 Anion Gap 14.5 (5-19) 06/01/25 20:23 BUN 11 mg/dL (6-20) 06/01/25 20:23 Creatinine 1.0 mg/dL (0.7-1.2) 06/01/25 20:23 GFR Calculation 77.6 mL/min (90-130) L 06/01/25 20:23 Glucose 92 mg/dL (65-115) 06/01/25 20:23 Calculated Osmolality 283 mOsm/kg (285-295) L 06/01/25 20:23 Lactic Acid 1.2 mmol/L (0.5-2.2) 06/01/25 20:23 Calcium 8.6 mg/dL (8.5-10.5) 06/01/25 20:23 Total Bilirubin 0.3 mg/dL (0.15-1.2) 06/01/25 20:23 AST 21 U/L (0-40) 06/01/25 20:23 ALT 22 U/L (0-41) 06/01/25 20:23 Alkaline Phosphatase 178 U/L (40-130) H 06/01/25 20:23 C-Reactive Protein 9.2 mg/L (0.0-4.9) H 06/01/25 20:23 Total Protein 6.6 g/dL (6.6-8.7) 06/01/25 20:23 Albumin 3.4 g/dL (3.5-5.2) L 06/01/25 20:23 Globulin 3.2 g/dL (1.3-4.6) 06/01/25 20:23 Lipase 21 U/L (13-60) 06/01/25 20:23 Urine Color Yellow (Yellow) 06/01/25 19:35 Urine Appearance Clear (CLEAR) 06/01/25 19:35 Urine pH 5.0 (5-7) 06/01/25 19:35 Ur Specific [place] 1.020 (1.005-1.030) 06/01/25 19:35 Urine Protein Negative (Negative) 06/01/25 19:35 Urine Glucose (UA) Negative (Normal) 06/01/25 19:35 Urine Ketones Negative (Negative) 06/01/25 19:35 Urine Blood Negative (Negative) 06/01/25 19:35 Urine Nitrate Negative (Negative) 06/01/25 19:35 Urine Bilirubin Negative (Negative) 06/01/25 19:35 Urine Urobilinogen 1.0 mg/dL (Negative) 06/01/25 19:35 Ur Leukocyte Esterase Negative (Negative) 06/01/25 19:35 Urine RBC 0-2 /hpf (0-2) 06/01/25 19:35 Urine WBC 0-5 /hpf (0-5) 06/01/25 19:35 Ur Squamous Epith Cells 0-5 /hpf (0-5) 06/01/25 19:35 Amorphous Sediment Not Reportable 06/01/25 19:35 Urine Bacteria None seen /hpf (NONE) 06/01/25 19:35 Hyaline Casts 0.81 /lpf 06/01/25 19:35 All radiology interpretation(s) finalized by discharge Discharge Plan Discharge Patient Disposition: Home Clinical Impression: Abdominal pain Condition: Stable Prescriptions: No Action tamsulosin 0.4 mg capsule 0.4 mg PO DAILY loratadine [Allergy Relief (loratadine)] 10 mg tablet 10 mg PO DAILY Durolane 60 mg/3 mL syringe 60 mg intra-articular ONCE Qty: 3 0RF nystatin 100,000 unit/gram powder 1 applic topical DAILY PRN (Reason: Skin Irritation) zonisamide 100 mg capsule See Rx Instructions .ROUTE .COMPLEX Qty: 300 3RF Dose Instruction: TAKE 3 CAPSULES BY MOUTH EVERY NIGHT AT BEDTIME Rx Instructions: TAKE 3 CAPSULES BY MOUTH EVERY NIGHT AT BEDTIME modafinil [Provigil] 200 mg tablet 200 mg PO QAM Qty: 90 3RF furosemide 20 mg tablet 40 mg PO DAILY potassium chloride 20 mEq tablet extended release 10 meq PO DAILY buspirone 10 mg tablet 10 mg PO BID Qty: 60 3RF risperidone [Risperdal] 0.5 mg tablet 0.5 mg PO BEDTIME Qty: 30 0RF albuterol sulfate [ProAir HFA] 90 mcg/actuation HFA aerosol inhaler 2 puff inhalation Q6H PRN (Reason: Shortness Of Breath) Qty: 8.5 3RF aripiprazole 30 mg tablet See Rx Instructions .ROUTE .COMPLEX Qty: 30 12RF Dose Instruction: TAKE 1 TABLET BY MOUTH EVERY DAY AT BEDTIME Rx Instructions: TAKE 1 TABLET BY MOUTH EVERY DAY AT BEDTIME fluoxetine 40 mg capsule 80 mg PO DAILY 30 Days Qty: 60 5RF atorvastatin 20 mg tablet See Rx Instructions .ROUTE .COMPLEX Qty: 90 2RF Dose Instruction: TAKE 1 TABLET BY MOUTH EVERY BEDTIME Rx Instructions: TAKE 1 TABLET BY MOUTH EVERY BEDTIME isosorbide mononitrate 30 mg tablet extended release 24 hr 15 mg PO BID Qty: 90 3RF sumatriptan succinate [Imitrex] 100 mg tablet See Rx Instructions PO .COMPLEX Qty: 10 4RF Rx Instructions: take 1 as soon as the headache starts. repeat in 1 hour if needed pantoprazole 40 mg tablet,delayed release (DR/EC) 40 mg PO DAILY ipratropium-albuterol 0.5 mg-3 mg(2.5 mg base)/3 mL solution for nebulization 3 ml INHALATION QID PRN (Reason: Shortness Of Breath) budesonide-formoterol [Symbicort] 80-4.5 mcg/actuation HFA aerosol inhaler 1 inh INHALATION BID PRN Discharge Orders: Discharge ED (Routine); Ordered 06/01/25 Ordered By: Vicente Salomon Referrals: Francesco Grady MD [Primary Care Provider, Family Practice] Patient Instructions: Abdominal Pain (ED), Opioid Safety, Pain Management, Patient Portal & Alejandra Instructions Activity Restrictions/Additional Instructions: Return for worsening pain, fever greater than 100 ?F, vomiting liquids or medications, other concerning symptoms. 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
[2025-06-01 21:02] LABS: Alanine Aminotransferase 22 U/L (0-41); Albumin Level 3.4 g/dL (3.5-5.2); Alkaline Phosphatase 178 U/L (40-130); Anion Gap 14.5 (5-19); Aspartate Amino Transferase 21 U/L (0-40); Blood Urea Nitrogen 11 mg/dL (6-20); Calcium 8.6 mg/dL (8.5-10.5); Carbon Dioxide 24 mmol/L (22-29); Chloride 102 mmol/L (98-107); Creatinine Clr Calc Pharmacy 145.2343; Globulin 3.2 g/dL (1.3-4.6); Glucose 92 mg/dL (65-115); Lactic Sepsis W/Reflex 1.2 mmol/L (0.5-2.2); Lipase 21 U/L (13-60); Osmolality Calculated 283 mOsm/kg (285-295); Potassium 3.5 mmol/L (3.5-5.1); Sodium 137 mmol/L (136-145); Total Protein 6.6 g/dL (6.6-8.7)
[2025-06-01 21:04] LABS: Add Urine Microscopic? YES
[2025-06-01 21:14] VITALS: BP 111/53; O2SAT 96
[2025-06-01 22:18] VITALS: BP 136/88; O2SAT 96
[2025-06-01 22:46] VITALS: BP 130/80; PULSE 61; RESP 18; O2SAT 96
== END 2025-06-01 22:47 | disposition home or self-care (01) ==
PROVIDERS: Emergency Provider Emergency Medicine; PCP Family Medicine
DX: R10.32 Left lower quadrant pain (principal); K21.9 Gastro-esophageal reflux disease without esophagitis
CPT/HCPCS: 36415; 74177; 80053; 81001; 83605; 83690; 85025; 85610; 86140; 96374; 96375; 99285; J1885; J2270; J2405

== ENCOUNTER → 2025-06-03 12:50 | Outpatient (BNVA) | payer OTHER, MEDICAID, SELFPAY ==
[2022-03-02 14:14] VITALS: BP 126/71; BMI 52.2
== END ==
PROVIDERS: PCP Family Medicine; Visit Provider Student in an Organized Health Care Education/Training Program
DX: M25.561 Pain in right knee (principal); M17.11 Unilateral primary osteoarthritis, right knee
CPT/HCPCS: 73560; 73565; 99213

== ENCOUNTER → 2025-07-01 07:22 | Outpatient (BNVA) | payer OTHER, MEDICAID, SELFPAY ==
[2022-03-02 14:14] VITALS: BP 126/71; BMI 52.2
== END ==
PROVIDERS: PCP Family Medicine; Visit Provider Student in an Organized Health Care Education/Training Program
DX: M17.11 Unilateral primary osteoarthritis, right knee (principal)
CPT/HCPCS: 20610; 99213; J7318